=== PATIENT | male | born 1955 | race Caucasian/White ===

== ENCOUNTER 2019-10-20 06:53 | Emergency (ER) | payer MEDICARE, MEDICAID, SELFPAY ==
[2019-10-20 07:07] VITALS: BP 200/108; PULSE 84; RESP 15; O2SAT 97; BMI 30.3
--- NOTE | 2019-10-20 07:16 | ED.NAVMDI ---
HPI - Nausea/Vomiting/Diarrhea General Chief complaint: Nausea/Vomiting/Diarrhea Stated complaint: dehydration Time Seen by Provider: 10/20/19 07:15 Source: patient Mode of arrival: Ambulatory Limitations: no limitations History of Present Illness HPI Narrative: CC: Nausea vomiting and diarrhea HPI: The patient is a 63-year-old male who in January had a coronary artery bypass graft x3 states that he suddenly developed nausea vomiting and diarrhea at 3:00 a.m. in the morning. He states that he was otherwise healthy and in no acute distress until then. He just suddenly started vomiting and is unable to keep anything down. He has vomited multiple times without hematemesis coffee-ground emesis. His emesis has intermittently been biliary in nature. He admits to smoking marijuana but does not drink alcohol or smoke cigarettes. He denies the use of any other drugs. He states that he has been having epigastric pain and discomfort since she started vomiting. He is status post cholecystectomy but has not had his appendix removed. He denies any fever chills sweats headache change in vision shortness of breath cough chest pain palpitations racing of his heart dizziness lightheadedness. He has had no urinary symptoms. His diarrhea has been watery in nature denies melena hematochezia. He denies a history of irritable bowel syndrome, Crohn's disease, ulcerative colitis. Related Data Previous Rx's Medication Instructions Recorded ondansetron HCl [Zofran] 8 mg PO Q8H PRN #10 tab 10/20/19 Allergies Allergy/AdvReac Type Severity Reaction Status Date / Time No Known Drug Allergies Allergy Verified 10/20/19 07:10 Review of Systems Review of Systems Narrative: Review of systems were negative except for those mentioned in history of present illness Patient History Social History Smoking Status: Never smoker Smoking Status: Never smoker alcohol intake frequency: 0-2 drinks per day Substance Use Type: does not use Exam Narrative Exam Narrative: PHYSICAL EXAM: CONSTITUTIONAL: Awake, appears uncomfortable and is retching continuously. His emesis appears biliary in nature. He is a thin and appears to be chronically ill. HEAD: AT/NC EENT: PERRL, pupils appear pinpoint with full range of motion of the eyes no appreciable nystagmus no conjunctivitis or discharge No epistaxis or nasal drainage Oral mucosa is moist and pink, posterior pharynx is without erythema or exudate. NECK: Supple, no obvious JVD, Trachea is midline without stridor, no palpable LN or masses. SPINE: No gross deformity, no palpable tenderness of the cervical, thoracic, lumbar or sacral spine. No CVA tenderness. THORAX: No deformity, retractions, chest wall tenderness, subcutaneous air or crepitice. LUNGS: Breath sounds are clear and symmetrical. HEART: Heart tones are regular rhythm and rate without appreciable murmur. Is not tachycardic. He has a fresh midline sternal scar and a wire scar ABDOMEN: Abdomen is flat scaphoid nontender no palpable organomegaly. There is no guarding rebound or rigidity EXTREMITIES: No edema, cyanosis, deformity or tenderness. SKIN: No rash, bruising, petechiae or purpura. NEURO: Awake, alert, oriented, conversive, cranial nerves II-XII are symmetrical and normal, moves all 4 extremities . Initial Vital Signs Initial Vital Signs: Vital Signs Pulse Rate 84 10/20/19 07:07 Respiratory Rate 15 10/20/19 07:07 Blood Pressure 200/108 H 10/20/19 07:07 Pulse Oximetry 97 10/20/19 07:07 Course Course Course Narrative: 1140 vomiting has stopped and the patient was able to keep liquids down. Patient will be discharged home Orders Ordered: Discontinued Medications Diphenhydramine HCl (Benadryl) 50 mg IV NOW ONE Stop: 10/20/19 07:50 Last Admin: 10/20/19 07:52 Dose: 50 mg Documented by: SARAH Sodium Chloride (Normal Saline 0.9%) 1,000 mls @ 1,000 mls/hr IV BOLUS ONE Stop: 10/20/19 08:19 Last Infusion: 10/20/19 08:25 Dose: 0 mls/hr Documented by: Admin: 10/20/19 07:25 Dose: 1,000 mls/hr Documented by: SARAH Metoclopramide HCl (Reglan) 10 mg IV NOW ONE Stop: 10/20/19 08:26 Last Admin: 10/20/19 08:27 Dose: 10 mg Documented by: SARAH Ondansetron HCl (Zofran) 8 mg IV NOW ONE Stop: 10/20/19 07:21 Last Admin: 10/20/19 07:25 Dose: 8 mg Documented by: SCANAPO Vital Signs Vital signs: Vital Signs - 8 hr 10/20/19 07:07 10/20/19 07:29 10/20/19 09:09 Temperature 97.2 F L Pulse Rate 84 77 Respiratory Rate 15 20 Blood Pressure 200/108 H Blood Pressure [Left Arm] 200/108 H Pulse Oximetry 97 100 10/20/19 11:00 Temperature Pulse Rate 63 Respiratory Rate 18 Blood Pressure Blood Pressure [Left Arm] 179/83 H Pulse Oximetry 100 MDM - Nausea/Vomiting/Diarrhea Lab Data Result diagrams: 10/20/19 07:15 10/20/19 07:15 Labs: Lab Results 10/20/19 10/20/19 10/20/19 Range/Units 07:15 07:15 07:15 WBC 9.7 (4.5-11.0) X10^3/uL RBC 6.30 H (4.5-5.9) X10^6/uL Hgb 17.3 (13.5-17.5) g/dL Hct 51.0 (41-53) % MCV 81.0 (80-100) fL MCH 27.4 (26-34) PG MCHC 33.9 (30-36) % RDW 13.4 (11.6-14.8) % Plt Count 168 (150-400) X10^3/uL Neut % (Auto) 76.7 H (50-75) % Lymph % (Auto) 13.5 L (25-40) % [place] % (Auto) 7.6 (3-14) % Eos % (Auto) 0.5 L (2-4) % Baso % (Auto) 1.7 (0-2) % Neut # (Auto) 7400 H (7692-5803) /uL Lymph # (Auto) 1300 (7079-3768) /uL [place] # (Auto) 700 (0-900) /uL Eos # (Auto) 0 (0-450) /uL Baso # (Auto) 200 H (0-100) /uL Sodium 141 (137-145) mmol/L Potassium 3.7 (3.4-5.1) mmol/L Chloride 100 (98-107) mmol/L Carbon Dioxide 26 (22-32) mmol/L BUN 13 (9-20) mg/dL Creatinine 0.70 (0.66-1.25) mg/dL Estimated GFR > 60.0 (>60) mL/min BUN/Creatinine Ratio 18.6 (6-22) Glucose 249 H (80-110) mg/dL Calcium 10.8 H (8.4-10.2) mg/dL Total Bilirubin 0.7 (0.2-1.3) mg/dL AST 29 (17-59) IU/L ALT 21 (<50) IU/L Alkaline Phosphatase 80 (38-126) U/L Troponin I < 0.012 (0.01-0.034) ng/mL Total Protein 8.9 H (6.3-8.2) g/dL Albumin 5.0 (3.5-5.0) g/dL Globulin 3.9 (1.7-4.1) g/dL Albumin/Globulin Ratio 1.3 (1.0-2.8) Lipase 51 (23-300) U/L U Opiates 300ng/mL cut (Negative) Ur Oxycodone Screen (Negative) Urine Methadone Screen (Negative) Ur Barbiturates Screen (Negative) U Tricyclic Antidepress (Negative) Ur Phencyclidine Scrn (Negative) Ur Amphetamines Screen (Negative) U Methamphetamines Scrn (Negative) Ur MDMA Scrn (Ecstasy) (Negative) U Benzodiazepines Scrn (Negative) Urine Cocaine Screen (Negative) U Marijuana (THC) Screen (Negative) Ethyl Alcohol ( - 10) mg/dL 10/20/19 10/20/19 Range/Units 07:15 09:10 WBC (4.5-11.0) X10^3/uL RBC (4.5-5.9) X10^6/uL Hgb (13.5-17.5) g/dL Hct (41-53) % MCV (80-100) fL MCH (26-34) PG MCHC (30-36) % RDW (11.6-14.8) % Plt Count (150-400) X10^3/uL Neut % (Auto) (50-75) % Lymph % (Auto) (25-40) % [place] % (Auto) (3-14) % Eos % (Auto) (2-4) % Baso % (Auto) (0-2) % Neut # (Auto) (5063-6291) /uL Lymph # (Auto) (5869-0591) /uL [place] # (Auto) (0-900) /uL Eos # (Auto) (0-450) /uL Baso # (Auto) (0-100) /uL Sodium (137-145) mmol/L Potassium (3.4-5.1) mmol/L Chloride (98-107) mmol/L Carbon Dioxide (22-32) mmol/L BUN (9-20) mg/dL Creatinine (0.66-1.25) mg/dL Estimated GFR (>60) mL/min BUN/Creatinine Ratio (6-22) Glucose (80-110) mg/dL Calcium (8.4-10.2) mg/dL Total Bilirubin (0.2-1.3) mg/dL AST (17-59) IU/L ALT (<50) IU/L Alkaline Phosphatase (38-126) U/L Troponin I (0.01-0.034) ng/mL Total Protein (6.3-8.2) g/dL Albumin (3.5-5.0) g/dL Globulin (1.7-4.1) g/dL Albumin/Globulin Ratio (1.0-2.8) Lipase (23-300) U/L U Opiates 300ng/mL cut Negative (Negative) Ur Oxycodone Screen Negative (Negative) Urine Methadone Screen Negative (Negative) Ur Barbiturates Screen Negative (Negative) U Tricyclic Antidepress Negative (Negative) Ur Phencyclidine Scrn Negative (Negative) Ur Amphetamines Screen Negative (Negative) U Methamphetamines Scrn Negative (Negative) Ur MDMA Scrn (Ecstasy) Negative (Negative) U Benzodiazepines Scrn Negative (Negative) Urine Cocaine Screen Negative (Negative) U Marijuana (THC) Screen Positive H (Negative) Ethyl Alcohol < 10 ( - 10) mg/dL Point of Care Testing Glucose POC 209 Urine Dip Bedside Urine Glucose 1000 mg/dl Bedside Urine Bilirubin - Negative Bedside Urine Ketone +++ 80 Urine Specific [place] 1.020 Bedside Urine Occult Blood - Negative Bedside Urine pH 6.0 Bedside Urine Protein +/- 15 Bedside Urine Urobilinogen - Negative Bedside Urine Nitrite - Negative Bedside Urine Leukocytes - Negative Esterase Discharge Plan Departure Patient Disposition: Home Clinical Impression: Retching, Dehydration, Nausea, vomiting and diarrhea, Cyclical vomiting Discharge Date/Time: 10/20/19 12:16 Instructions: DI for Dehydration -- Adult, DI for Vomiting -- Adult, Nausea and Vomiting-Adult Activity Restrictions/Additional Instructions: 1. Avoid smoking marijuana which can cause persistent vomiting. 2. Follow-up follow-up with your primary care physician in and be rechecked in 48-72 hours. 3. Drink 2-3 L of fluid per day advanced her diet slowly as tolerated. 4. Zofran for nausea and vomiting. Prescriptions: New ondansetron HCl [Zofran] 8 mg tablet 8 mg PO Q8H PRN (Reason: nausea and vomiting) Qty: 10 RF: 0
[2019-10-20] MEDS: SODIUM CHLORIDE 0.9% 1,000 ML 1000 ML IV (07:25)
[2019-10-20] MEDS: ONDANSETRON 4 MG/2 ML INJ 8 MG IV (07:25)
[2019-10-20 07:29] VITALS: TEMP 36.2
[2019-10-20 07:36] LABS: Add Manual Diff / Slide Review NO; Basophils Absolute Auto 200 /uL (0-100); Basophils Percent Auto 1.7 % (0-2); Eosinophils Absolute Auto 0 /uL (0-450); Eosinophils Percent Auto 0.5 % (2-4); Hemoglobin 17.3 g/dL (13.5-17.5); Lymphocytes Absolute Auto 1300 /uL (1100-4500); Lymphocytes Percent Auto 13.5 % (25-40); Mean Corpuscular HGB Conc 33.9 % (30-36); Mean Corpuscular Hemoglobin 27.4 PG (26-34); Monocytes Absolute Auto 700 /uL (0-900); Monocytes Percent Auto 7.6 % (3-14); Neutrophils Absolute Auto 7400 /uL (1500-7000); Neutrophils Percent Auto 76.7 % (50-75); Platelet Count 168 X10^3/uL (150-400); Red Cell Distribution Width 13.4 % (11.6-14.8); White Blood Cell Count 9.7 X10^3/uL (4.5-11.0)
[2019-10-20 07:42] LABS: Lipase 51 U/L (23-300)
[2019-10-20 07:43] LABS: Alanine Aminotransferase 21 IU/L (<50); Albumin Globulin Ratio 1.3 (1.0-2.8); Alkaline Phosphatase 80 U/L (38-126); Aspartate Aminotransferase 29 IU/L (17-59); BUN Creatinine Ratio 18.6 (6-22); Bilirubin Total 0.7 mg/dL (0.2-1.3); Blood Urea Nitrogen 13 mg/dL (9-20); Calcium 10.8 mg/dL (8.4-10.2); Carbon Dioxide 26 mmol/L (22-32); Chloride 100 mmol/L (98-107); Estimated Glomerular Filt Rate > 60.0 mL/min (>60); Globulin 3.9 g/dL (1.7-4.1); Glucose 249 mg/dL (80-110); HEMOLYSIS < 15 (0-50); Potassium 3.7 mmol/L (3.4-5.1); Sodium 141 mmol/L (137-145); Total Protein 8.9 g/dL (6.3-8.2)
[2019-10-20] MEDS: diphenhydrAMINE 50 MG/ML VIAL IV (07:52)
[2019-10-20 07:54] LABS: Troponin I < 0.012 ng/mL (0.01-0.034)
[2019-10-20 07:57] LABS: Ethanol (ETOH) < 10 mg/dL
[2019-10-20] MEDS: METOCLOPRAMIDE 10 MG/2 ML INJ IV (08:27)
--- NOTE | 2019-10-20 08:37 | DI.RAD.S_ITS ---
PROCEDURE: XR ACUTE ABDOMEN SERIES INDICATIONS: persistent retching/ vomiting TECHNIQUE: One view chest and two views of the abdomen were acquired. COMPARISON: None. FINDINGS: Surgical changes and devices: Post CABG changes are seen. Cholecystectomy clips are seen. Lumbosacral postoperative fixation hardware is seen. Chest: Lungs are clear. Heart size is normal. No pleural effusions. No pneumoperitoneum. Abdomen: No dilated loops of bowel can be seen. No abnormal gas is seen. There is a moderate amount of stool seen within the colon. No suspicious calcifications. Visualized solid organ contours appear normal. Bones: No suspicious bony lesions. Age-appropriate bony degenerative changes are seen. IMPRESSION: A nonobstructive bowel gas pattern is seen. As clinically appropriate, please consider a repeat plain film study or a dedicated CT of the abdomen and pelvis, if the patient's symptoms persist or worsen. There is a moderate amount of stool seen within the colon. Please correlate with an underlying history of constipation. Postoperative and degenerative changes are seen. Dictated by: Abelino Rhodes M.D. on 10/20/2019 at 8:58 Approved by: Abelino Rhodes M.D. on 10/20/2019 at 8:59
[2019-10-20 09:09] VITALS: BP 200/108; PULSE 77; RESP 20; O2SAT 100
[2019-10-20 09:30] LABS: UR Morphine/Opiate cutoff 300 Negative (Negative); Ur Creatinine Normal (Normal); Ur Specific Gravity Normal (Normal); Urine Amphetamines Negative (Negative); Urine Barbiturates Negative (Negative); Urine Benzodiazepines Negative (Negative); Urine Cocaine Negative (Negative); Urine MDMA Negative (Negative); Urine Methadone Negative (Negative); Urine Methamphetamines Negative (Negative); Urine Phencyclidine Negative (Negative); Urine Tetrahydrocannabinol Positive (Negative); Urine Tricyclic Antidepressant Negative (Negative); Urine pH Normal (Normal)
[2019-10-20 09:31] LABS: Urine Oxycodone Negative (Negative)
[2019-10-20 11:00] VITALS: BP 179/83; PULSE 63; RESP 18; O2SAT 100
[2019-10-20 12:06] VITALS: BP 168/81; PULSE 61; RESP 19; O2SAT 100
== END 2019-10-20 12:16 | disposition home or self-care (01) ==
PROVIDERS: Emergency Provider Emergency Medicine
DX: R11.15 Cyclical vomiting syndrome unrelated to migraine (principal); R11.2 Nausea with vomiting, unspecified; R19.7 Diarrhea, unspecified; E86.0 Dehydration
CPT/HCPCS: 36415; 74022; 80053; 80305; 80320; 81003; 82962; 83690; 84484; 85025; 87045; 87899; 96361; 96374; 96375; 99284; J1200; J2405; J2765

== ENCOUNTER 2020-04-12 08:29 | Emergency (ER) | payer MEDICARE, MEDICAID, SELFPAY ==
[2020-04-12] VITALS (22 sets, daily range): BP systolic 170–215; BP diastolic 73–116; PULSE 53–80; RESP 13–26; TEMP 36.6; O2SAT 98–100; BMI 30.3
[2020-04-12 09:00] LABS: Add Manual Diff / Slide Review NO; Basophils Absolute Auto 0 /uL (0-100); Basophils Percent Auto 0.4 % (0-2); Eosinophils Absolute Auto 100 /uL (0-450); Eosinophils Percent Auto 0.6 % (2-4); Hematocrit 50.8 % (41-53); Hemoglobin 16.9 g/dL (13.5-17.5); Lymphocytes Absolute Auto 2300 /uL (1100-4500); Lymphocytes Percent Auto 24.4 % (25-40); Mean Corpuscular HGB Conc 33.4 % (30-36); Mean Corpuscular Hemoglobin 27.2 PG (26-34); Mean Corpuscular Volume 81.6 fL (80-100); Monocytes Absolute Auto 900 /uL (0-900); Monocytes Percent Auto 9.2 % (3-14); Neutrophils Absolute Auto 6000 /uL (1500-7000); Neutrophils Percent Auto 65.4 % (50-75); Platelet Count 167 X10^3/uL (150-400); Red Blood Cell Count 6.22 X10^6/uL (4.5-5.9); Red Cell Distribution Width 13.8 % (11.6-14.8); White Blood Cell Count 9.3 X10^3/uL (4.5-11.0)
--- NOTE | 2020-04-12 09:03 | ED_ITS ---
HPI - Nausea/Vomiting/Diarrhea General Chief complaint: Nausea/Vomiting/Diarrhea Stated complaint: 'PROBABLY HYPEREMISIS' Time Seen by Provider: 04/12/20 08:53 Source: patient History of Present Illness HPI Narrative: Patient driven here by his roommate. Patient states nonbloody vomiting and diarrhea started 24 hours ago. Patient states this is not new. This is due to cannabinoid hyperemesis syndrome. Patient states lifelong use of marijuana. This has caused him to have cyclic vomiting. Seen here in October 2019 for the same. Was given Reglan, Zofran, Benadryl and normal saline. He states that is what helps him to recover from this. Denies denies any chest pain back pain or abdominal pain. No recent illness otherwise. No cough cold congestion fever chills. No go over the exposure. Again, denies any chest pain. No EKG or troponin indicated this time. Patient did have those studies last time and they were negative. Related Data Home Medications Medication Instructions Recorded Confirmed aspirin [Adult Low Dose Aspirin] 81 mg PO DAILY 04/12/20 04/12/20 Previous Rx's Medication Instructions Recorded ondansetron HCl [Zofran] 8 mg PO Q8H PRN #10 tab 10/20/19 ondansetron 4 mg PO Q8H PRN #10 tab 04/12/20 Allergies Allergy/AdvReac Type Severity Reaction Status Date / Time No Known Drug Allergies Allergy Verified 04/12/20 09:15 Review of Systems Review of Systems Narrative: GENERAL: Denies chills, fatigue, malaise, fever, sweats. HEENT: Denies sinus pain, ear pain, sore throat, difficulty swallowing, dizziness. RESPIRATORY: Denies dyspnea, cough, wheezing, hemoptysis, sputum. CARDIOVASCULAR: Denies chest pain, palpitations, orthopnea, edema, GASTROINTESTINAL: Complains of nausea, vomiting, diarrhea, denies constipation, melena. : Denies dysuria, frequency, incontinence, hematuria, urinary retention. MUSCULOSKELETAL: denies weakness, joint pain, or bony pain SKIN: Denies rash, skin lesions, or other NEUROLOGIC: Denies weakness, headache, numbness, change in speech, confusion, seizures, incoordination. PSYCHIATRIC: No concerning psychosocial issues. ROS Unobtainable: All systems reviewed & are unremarkable except as noted in HPI and below Patient History Social History Smoking Status: Never smoker Smoking Status: Never smoker alcohol intake frequency: 0-2 drinks per day Substance Use Type: does not use Exam Narrative Exam Narrative: GENERAL: patient appears stated age. Well-nourished, well- developed patient, in no distress, not toxic, however is active he being/dry heaving HEAD: Atraumatic. Normocephalic. EYES: No icterus ENT: Nose without bleeding, purulent drainage. Throat without erythema, tonsillar hypertrophy or exudate. Airway patent. NECK: Trachea midline. Non tender CARDIOVASCULAR: Regular rate and rhythm without murmurs, gallops, or rubs. RESPIRATORY: Clear to auscultation. Breath sounds equal bilaterally. No wheezes, rales, or rhonchi. GASTROINTESTINAL: Abdomen soft, non-tender, nondistended. No peritoneal signs, normal bowel sounds EXTREMITIES: No edema or joint tenderness. BACK: Nontender without deformity or crepitance. No flank tenderness. NEURO: AOx3. SKIN: No rash or erythema of visible areas PSYCH: Not anxious, is cooperative Initial Vital Signs Initial Vital Signs: Vital Signs Pulse Rate 55 L 04/12/20 08:34 Pulse Oximetry 99 04/12/20 08:34 Course Course Course Narrative: Patient to be admitted home. Hospitalist Dr. Solorio has seen patient and reassessed and patient desires discharge home no vomiting after multiple medications. Orders Ordered: ED Orders 04/12/20 11:58 EKG-12 Lead Stat Discontinued Medications Diphenhydramine HCl (Benadryl) 25 mg IV NOW ONE Stop: 04/12/20 09:03 Last Admin: 04/12/20 09:09 Dose: 25 mg Documented by: [place] Haloperidol (Haldol) 5 mg IM NOW ONE Stop: 04/12/20 11:49 Last Admin: 04/12/20 11:56 Dose: 5 mg Documented by: JACE Sodium Chloride (Normal Saline 0.9%) 1,000 mls @ 1,000 mls/hr IV BOLUS ONE Stop: 04/12/20 09:53 Last Infusion: 04/12/20 09:59 Dose: 0 mls/hr Documented by: Admin: 04/12/20 09:08 Dose: 1,000 mls/hr Documented by: [place] Sodium Chloride (Normal Saline 0.9%) 1,000 mls @ 1,000 mls/hr IV BOLUS ONE Stop: 04/12/20 11:07 Last Infusion: 04/12/20 11:12 Dose: 0 mls/hr Documented by: Admin: 04/12/20 10:18 Dose: 1,000 mls/hr Documented by: [place] Sodium Chloride (Normal Saline 0.9%) 1,000 mls @ 75 mls/hr IV BOLUS ONE Stop: 04/13/20 01:08 Last Admin: 04/12/20 11:55 Dose: 75 mls/hr Documented by: JACE Lorazepam (Ativan) 1 mg IV NOW ONE Stop: 04/12/20 10:43 Last Admin: 04/12/20 10:49 Dose: 1 mg Documented by: [place] Metoclopramide HCl (Reglan) 10 mg IV NOW ONE Stop: 04/12/20 09:03 Last Admin: 04/12/20 09:09 Dose: 10 mg Documented by: [place] Ondansetron HCl (Zofran) 4 mg IV NOW ONE Stop: 04/12/20 08:55 Last Admin: 04/12/20 09:09 Dose: Not Given Documented by: [place] Pantoprazole Sodium (Protonix) 40 mg IV NOW ONE Stop: 04/12/20 12:05 Last Admin: 04/12/20 12:10 Dose: 40 mg Documented by: JACE Reevaluation(s) Reevaluation #1: No nausea vomiting at this time. Patient desires discharge home Time: 14:20 Consultations Consultation #1: Patient seen by hospitalist dr solorio.. Patient does not to be admitted now. He states he is not nauseous or vomiting. Laboratory studies reviewed with him and Dr. Solorio Time: 14:20 Vital Signs Vital signs: Vital Signs - 8 hr 04/12/20 10:30 04/12/20 10:31 04/12/20 11:00 Pulse Rate 63 60 53 L Respiratory Rate Blood Pressure 203/89 H Pulse Oximetry 100 100 99 04/12/20 11:01 04/12/20 11:30 04/12/20 11:31 Pulse Rate 55 L 64 59 L Respiratory Rate 19 18 Blood Pressure 215/92 H 174/73 H Pulse Oximetry 98 100 100 04/12/20 12:00 04/12/20 12:01 04/12/20 12:30 Pulse Rate 80 72 66 Respiratory Rate 26 H 26 H 13 Blood Pressure 172/116 H 183/86 H Pulse Oximetry 100 100 100 04/12/20 13:00 04/12/20 13:01 04/12/20 13:30 Pulse Rate 64 62 61 Respiratory Rate 21 21 20 Blood Pressure 178/82 H 181/86 H Pulse Oximetry 98 98 99 04/12/20 14:00 Pulse Rate 67 Respiratory Rate 20 Blood Pressure 170/97 H Pulse Oximetry 100 MDM - Nausea/Vomiting/Diarrhea Differential Diagnosis Differential diagnosis: Likely other (Intractable vomiting) Lab Data Result diagrams: 04/12/20 08:45 04/12/20 08:45 Labs: Lab Results 04/12/20 04/12/20 04/12/20 Range/Units 08:45 08:45 12:02 WBC 9.3 (4.5-11.0) X10^3/uL RBC 6.22 H (4.5-5.9) X10^6/uL Hgb 16.9 (13.5-17.5) g/dL Hct 50.8 (41-53) % MCV 81.6 (80-100) fL MCH 27.2 (26-34) PG MCHC 33.4 (30-36) % RDW 13.8 (11.6-14.8) % Plt Count 167 (150-400) X10^3/uL Neut % (Auto) 65.4 (50-75) % Lymph % (Auto) 24.4 L (25-40) % [place] % (Auto) 9.2 (3-14) % Eos % (Auto) 0.6 L (2-4) % Baso % (Auto) 0.4 (0-2) % Neut # (Auto) 6000 (9359-8542) /uL Lymph # (Auto) 2300 (4974-1409) /uL [place] # (Auto) 900 (0-900) /uL Eos # (Auto) 100 (0-450) /uL Baso # (Auto) 0 (0-100) /uL Sodium 136 L (137-145) mmol/L Potassium 4.0 (3.4-5.1) mmol/L Chloride 101 (98-107) mmol/L Carbon Dioxide 26 (22-32) mmol/L BUN 12 (9-20) mg/dL Creatinine 0.68 (0.66-1.25) mg/dL Estimated GFR > 60.0 (>60) mL/min BUN/Creatinine Ratio 17.6 (6-22) Glucose 224 H (80-110) mg/dL Calcium 10.3 H (8.4-10.2) mg/dL Total Bilirubin 0.8 (0.2-1.3) mg/dL AST 33 (17-59) IU/L ALT 23 (<50) IU/L Alkaline Phosphatase 79 (38-126) U/L Total Protein 8.2 (6.3-8.2) g/dL Albumin 4.7 (3.5-5.0) g/dL Globulin 3.5 (1.7-4.1) g/dL Albumin/Globulin Ratio 1.3 (1.0-2.8) Lipase 51 (23-300) U/L COVID-19 PCR Negative (Negative) Urine Dip Bedside Urine Glucose 1000 mg/dl Bedside Urine Bilirubin - Negative Bedside Urine Ketone ++ 40 Urine Specific [place] 1.015 Bedside Urine Occult Blood - Negative Bedside Urine pH 6.0 Bedside Urine Protein - Negative Bedside Urine Urobilinogen - Negative Bedside Urine Nitrite - Negative Bedside Urine Leukocytes - Negative Esterase ECG Data Attestation: I personally reviewed and interpreted this ECG as follows: Interpretation: Sinus rhythm no ST elevation or depression. Ventricular rate 68 MDM Narrative Medical decision making narrative: Patient does not want to be admitted now. No nausea vomiting after Zofran Reglan Benadryl Ativan and Haldol. Awake alert oriented x4. Discharge Plan Departure Patient Disposition: Home Clinical Impression: Acute vomiting Discharge Date/Time: 04/12/20 14:32 Instructions: DI for Vomiting -- Adult Activity Restrictions/Additional Instructions: Stop using marijuana. Return if worse or if any questions or concerns. Keep well hydrated. See family doctor in a week for recheck. Prescriptions: New ondansetron 4 mg tablet,disintegrating 4 mg PO Q8H PRN (Reason: nausea and vomiting) Qty: 10 RF: 0 No Action ondansetron HCl [Zofran] 8 mg tablet 8 mg PO Q8H PRN (Reason: nausea and vomiting) Qty: 10 RF: 0 aspirin [Adult Low Dose Aspirin] 81 mg Tablet,Delayed Release (Dr/Ec) 81 mg PO DAILY RF: 0
[2020-04-12 09:05] LABS: Alanine Aminotransferase 23 IU/L (<50); Albumin 4.7 g/dL (3.5-5.0); Albumin Globulin Ratio 1.3 (1.0-2.8); Alkaline Phosphatase 79 U/L (38-126); Aspartate Aminotransferase 33 IU/L (17-59); BUN Creatinine Ratio 17.6 (6-22); Bilirubin Total 0.8 mg/dL (0.2-1.3); Blood Urea Nitrogen 12 mg/dL (9-20); Calcium 10.3 mg/dL (8.4-10.2); Carbon Dioxide 26 mmol/L (22-32); Chloride 101 mmol/L (98-107); Estimated Glomerular Filt Rate > 60.0 mL/min (>60); Globulin 3.5 g/dL (1.7-4.1); Glucose 224 mg/dL (80-110); Lipase 51 U/L (23-300); Sodium 136 mmol/L (137-145); Total Protein 8.2 g/dL (6.3-8.2)
[2020-04-12 09:06] LABS: HEMOLYSIS 52 (0-50)
[2020-04-12] MEDS: SODIUM CHLORIDE 0.9% 1,000 ML 1000 ML IV ×2 (09:08→10:18)
[2020-04-12] MEDS: METOCLOPRAMIDE 10 MG/2 ML INJ IV (09:09)
[2020-04-12] MEDS: ONDANSETRON 4 MG/2 ML INJ (09:09)
[2020-04-12] MEDS: diphenhydrAMINE 50 MG/ML VIAL 25 MG IV (09:09)
[2020-04-12] MEDS: LORazepam 2 MG/ML INJ 1 MG IV (10:49)
[2020-04-12] MEDS: SODIUM CHLORIDE 0.9% 1,000 ML 75 ML IV (11:55)
[2020-04-12] MEDS: HALOPERIDOL 5 MG/ML VIAL IM (11:56)
[2020-04-12] MEDS: PANTOPRAZOLE 40 MG VIAL IV (12:10)
[2020-04-12 13:00] LABS: COVID19 -Nasal RAPID Negative (Negative)
== END 2020-04-12 14:32 | disposition home or self-care (01) ==
PROVIDERS: Emergency Provider Emergency Medicine
DX: R11.10 Vomiting, unspecified (principal); R19.7 Diarrhea, unspecified
CPT/HCPCS: 36415; 80053; 81003; 83690; 85025; 87635; 93005; 96361; 96372; 96374; 96375; 99284; C9113; J1200; J1630; J2060; J2405; J2765

== ENCOUNTER 2020-09-11 05:57 | Emergency (ER) | payer MEDICARE, MEDICAID, SELFPAY ==
[2020-09-11] VITALS (11 sets, daily range): BP systolic 184–206; BP diastolic 88–106; PULSE 52–63; RESP 17–21; TEMP 36.6; O2SAT 94–100; BMI 30.6
--- NOTE | 2020-09-11 06:11 | ED.NAVMDI ---
HPI - Nausea/Vomiting/Diarrhea <DO Hanna Jesus Last Filed: 09/12/20 00:26> General Chief complaint: Nausea/Vomiting/Diarrhea Stated complaint: Vomiting,nausea Time Seen by Provider: 09/11/20 06:03 Source: patient Mode of arrival: Ambulatory Limitations: no limitations History of Present Illness HPI Narrative: 64-year-old male with history of heavy marijuana use and frequent episodes of hyperemesis presents with nausea vomiting and weakness that started about 2 this morning. He states it feels quite similar to prior episodes. He denies any runny nose or sore throat. He has no chest pain or shortness of breath. He has no fever or shaking chills. He denies any change in medications or diet. He denies any exposure to persons with known COVID. MD complaint: nausea and vomiting Onset (ago): hour(s) Description of Vomiting: food contents Description of Diarrhea: none Associated Abdominal Pain: Yes Location of pain: diffuse Radiation: diffuse Severity: mild Quality: cramping Relieving factors: none Exacerbating factors: none Associated symptoms: denies other symptoms Related Data Home Medications Medication Instructions Recorded Confirmed aspirin [Adult Low Dose Aspirin] 81 mg PO DAILY 04/12/20 04/12/20 Previous Rx's Medication Instructions Recorded ondansetron HCl [Zofran] 8 mg PO Q8H PRN #10 tab 10/20/19 ondansetron 4 mg PO Q8H PRN #10 tab 04/12/20 Allergies Allergy/AdvReac Type Severity Reaction Status Date / Time No Known Drug Allergies Allergy Verified 04/12/20 09:15 Review of Systems <DO Hanna Jesus Last Filed: 09/12/20 00:26> Constitutional Constitutional: Denies chills, Denies fatigue, Denies fever(s), Denies frequent falls, Denies lethargy and Denies weakness Eyes Eyes: Denies change in vision, Denies eye discharge, Denies irritation and Denies loss of vision ENT Ears, Nose, Mouth, and Throat: Denies change in voice, Denies dizziness, Denies neck pain, Denies sore throat and Denies throat swelling Cardiovascular Cardiovascular: Denies chest pain, Denies irregular heart rhythm, Denies lightheadedness, Denies palpitations, Denies dyspnea, Denies dyspnea on exertion and Denies orthopnea Respiratory Respiratory: Denies cough, Denies dyspnea, Denies dyspnea on exertion and Denies wheezing Gastrointestinal Gastrointestinal: Reports abdominal pain (Mild crampy discomfort), Denies change in bowel habits, Denies diarrhea, Reports nausea and Reports vomiting Musculoskeletal Musculoskeletal: Denies neck pain and Denies numbness Integumentary/Breasts Skin/Breast: Denies pruritus, Denies erythema, Denies rash and Denies wounds Neurologic Neurologic: Denies behavioral changes, Denies confusion, Denies dizziness, Denies frequent falls, Denies loss of vision, Denies numbness and Denies weakness Psychiatric Psychiatric: Denies anxiety, Denies behavioral changes, Denies confusion, Denies depression, Denies homicidal ideation and Denies suicidal ideation Endocrine Endocrine: Denies fatigue, Denies flushing and Denies palpitations Hematologic/Lymphatic Hematologic/Lymphatic: Denies easy bruising Allergic/Immunologic Allergic/Immunologic: Denies urticaria, Denies throat swelling and Denies wheezing Patient History <Fadi Landaverde DO - Last Filed: 09/12/20 00:26> Social History Smoking Status: Never smoker Smoking Status: Never smoker alcohol intake frequency: 0-2 drinks per day Substance Use Type: marijuana Exam <Fadi Landaverde DO - Last Filed: 09/12/20 00:26> Narrative Exam Narrative: GENERAL: [64] year old patient appears stated age. Well-nourished, well-developed patient, in mild distress. Appears uncomfortable HEAD: Atraumatic. Normocephalic. EYES: Pupils equal round and reactive. Extraocular motions intact. No scleral icterus. No injection or drainage. ENT: Dry mucous membranes Nose without bleeding, purulent drainage. Throat without erythema, tonsillar hypertrophy or exudate. Airway patent. NECK: Trachea midline. Non tender CARDIOVASCULAR: Regular rate and rhythm without murmurs, gallops, or rubs. RESPIRATORY: Clear to auscultation. Breath sounds equal bilaterally. No wheezes, rales, or rhonchi. GASTROINTESTINAL: Abdomen soft, non-tender, nondistended. EXTREMITIES: No edema or joint tenderness. BACK: Nontender without deformity or crepitance. No flank tenderness. NEURO: AOx3. SKIN: No rash or erythema of visible areas Initial Vital Signs Initial Vital Signs: Vital Signs Temperature 98 F 01/09/21 06:05 Pulse Rate 61 09/11/20 06:05 Respiratory Rate 17 09/11/20 06:05 Blood Pressure 200/92 H 09/11/20 06:05 Pulse Oximetry 100 09/11/20 06:05 <Julieta Ledezma DO - Last Filed: 09/11/20 09:59> Initial Vital Signs Initial Vital Signs: Vital Signs Temperature 98 F 09/11/20 06:05 Pulse Rate 61 09/11/20 06:05 Respiratory Rate 17 09/11/20 06:05 Blood Pressure 200/92 H 09/11/20 06:05 Pulse Oximetry 100 09/11/20 06:05 Course <Fadi Landaverde, DO - Last Filed: 09/12/20 00:26> Course Course Narrative: patient signed out to Dr. Ledezma for completion of care and final disposition. Expect DC Orders Ordered: Discontinued Medications Diphenhydramine HCl (Diphenhydramine 50 Mg/Ml Vial) 25 mg IV NOW ONE Stop: 09/11/20 07:52 Last Admin: 09/11/20 08:00 Dose: 25 mg Documented by: YONATHAN Haloperidol (Haloperidol 5 Mg/Ml Vial) 5 mg IV NOW ONE Stop: 09/11/20 07:52 Last Admin: 09/11/20 07:59 Dose: 5 mg Documented by: JOHN PAULINOR Sodium Chloride (Normal Saline 0.9%) 1,000 mls @ 1,000 mls/hr IV BOLUS ONE Stop: 09/11/20 07:11 Last Infusion: 09/11/20 07:48 Dose: 0 mls/hr Documented by: Admin: 09/11/20 06:39 Dose: 1,000 mls/hr Documented by: KGALLCHARLIE Sodium Chloride (Normal Saline 0.9%) 1,000 mls @ 1,000 mls/hr IV BOLUS ONE Stop: 09/11/20 08:55 Last Infusion: 09/11/20 08:55 Dose: 0 mls/hr Documented by: Admin: 09/11/20 08:00 Dose: 1,000 mls/hr Documented by: YONATHAN Metoclopramide HCl (Metoclopramide 10 Mg/2 Ml Inj) 10 mg IV NOW ONE Stop: 09/11/20 06:13 Last Admin: 09/11/20 06:39 Dose: 10 mg Documented by: STACY Ondansetron HCl (Ondansetron 4 Mg/2 Ml Inj) 4 mg IV Q4HR PRN PRN Reason: Nausea And Vomiting Last Admin: 09/11/20 07:59 Dose: 4 mg Documented by: Admin: 09/11/20 06:38 Dose: 4 mg Documented by: STACY Pantoprazole Sodium (Pantoprazole 40 Mg Vial) 40 mg IV NOW ONE Stop: 09/11/20 07:53 Last Admin: 09/11/20 07:59 Dose: 40 mg Documented by: YONATHAN Vital Signs Vital signs: Vital Signs - 8 hr 09/11/20 06:05 09/11/20 06:07 09/11/20 06:08 Temperature 98 F Pulse Rate 61 63 Respiratory Rate 17 Blood Pressure 200/92 H 200/92 H Pulse Oximetry 100 100 100 09/11/20 06:30 09/11/20 07:00 09/11/20 07:30 Temperature Pulse Rate 60 53 L 52 L Respiratory Rate Blood Pressure Pulse Oximetry 100 100 100 09/11/20 07:38 09/11/20 08:00 09/11/20 08:01 Temperature Pulse Rate 59 L 63 63 Respiratory Rate Blood Pressure 206/97 H 184/106 H Pulse Oximetry 100 100 99 09/11/20 08:30 09/11/20 08:31 Temperature Pulse Rate 53 L 52 L Respiratory Rate 21 19 Blood Pressure 194/88 H Pulse Oximetry 97 94 <Julieta Ledezma DO - Last Filed: 09/11/20 09:59> Orders Ordered: Discontinued Medications Diphenhydramine HCl (Diphenhydramine 50 Mg/Ml Vial) 25 mg IV NOW ONE Stop: 09/11/20 07:52 Last Admin: 09/11/20 08:00 Dose: 25 mg Documented by: YONATHAN Haloperidol (Haloperidol 5 Mg/Ml Vial) 5 mg IV NOW ONE Stop: 09/11/20 07:52 Last Admin: 09/11/20 07:59 Dose: 5 mg Documented by: YONATHAN Sodium Chloride (Normal Saline 0.9%) 1,000 mls @ 1,000 mls/hr IV BOLUS ONE Stop: 09/11/20 07:11 Last Infusion: 09/11/20 07:48 Dose: 0 mls/hr Documented by: Admin: 09/11/20 06:39 Dose: 1,000 mls/hr Documented by: STACY Sodium Chloride (Normal Saline 0.9%) 1,000 mls @ 1,000 mls/hr IV BOLUS ONE Stop: 09/11/20 08:55 Last Infusion: 09/11/20 08:55 Dose: 0 mls/hr Documented by: Admin: 09/11/20 08:00 Dose: 1,000 mls/hr Documented by: YONATHAN Metoclopramide HCl (Metoclopramide 10 Mg/2 Ml Inj) 10 mg IV NOW ONE Stop: 09/11/20 06:13 Last Admin: 09/11/20 06:39 Dose: 10 mg Documented by: STACY Ondansetron HCl (Ondansetron 4 Mg/2 Ml Inj) 4 mg IV Q4HR PRN PRN Reason: Nausea And Vomiting Last Admin: 09/11/20 07:59 Dose: 4 mg Documented by: Admin: 09/11/20 06:38 Dose: 4 mg Documented by: STACY Pantoprazole Sodium (Pantoprazole 40 Mg Vial) 40 mg IV NOW ONE Stop: 09/11/20 07:53 Last Admin: 09/11/20 07:59 Dose: 40 mg Documented by: YONATHAN Reevaluation(s) Reevaluation #1: Patient evaluated by myself he states he was having some mild nausea and requested some additional fluids. He did start to have some dry heaves while I was in the room he states that he did respond to Haldol and Benadryl in the past. He is hypertensive today and states that he last took his blood pressure medications yesterday morning. Time: 07:56 Reevaluation #2: Patient is feeling much better at this time he would like to return home. He actually defers any antinausea medications states he has some at home. He states he is well aware that his symptoms are secondary to cannabis. Time: 09:08 Vital Signs Vital signs: Vital Signs - 8 hr 09/11/20 06:05 09/11/20 06:07 09/11/20 06:08 Temperature 98 F Pulse Rate 61 63 Respiratory Rate 17 Blood Pressure 200/92 H 200/92 H Pulse Oximetry 100 100 100 09/11/20 06:30 09/11/20 07:00 09/11/20 07:30 Temperature Pulse Rate 60 53 L 52 L Respiratory Rate Blood Pressure Pulse Oximetry 100 100 100 09/11/20 07:38 09/11/20 08:00 09/11/20 08:01 Temperature Pulse Rate 59 L 63 63 Respiratory Rate Blood Pressure 206/97 H 184/106 H Pulse Oximetry 100 100 99 09/11/20 08:30 09/11/20 08:31 Temperature Pulse Rate 53 L 52 L Respiratory Rate 21 19 Blood Pressure 194/88 H Pulse Oximetry 97 94 MDM - Nausea/Vomiting/Diarrhea <Fadi Landaverde DO - Last Filed: 09/12/20 00:26> Lab Data Result diagrams: 09/11/20 06:33 09/11/20 06:33 Labs: Lab Results 09/11/20 09/11/20 09/11/20 Range/Units 06:33 06:33 07:16 WBC 8.4 (4.5-11.0) X10^3/uL RBC 5.90 (4.5-5.9) X10^6/uL Hgb 16.2 (13.5-17.5) g/dL Hct 48.5 (41-53) % MCV 82.2 (80-100) fL MCH 27.4 (26-34) PG MCHC 33.4 (30-36) % RDW 13.7 (11.6-14.8) % Plt Count 167 (150-400) X10^3/uL Neut % (Auto) 62.2 (50-75) % Lymph % (Auto) 25.8 (25-40) % [place] % (Auto) 10.1 (3-14) % Eos % (Auto) 0.9 L (2-4) % Baso % (Auto) 1.0 (0-2) % Neut # (Auto) 5200 (1011-9760) /uL Lymph # (Auto) 2200 (0344-3742) /uL [place] # (Auto) 800 (0-900) /uL Eos # (Auto) 100 (0-450) /uL Baso # (Auto) 100 (0-100) /uL Sodium 136 L (137-145) mmol/L Potassium 4.5 (3.4-5.1) mmol/L Chloride 101 (98-107) mmol/L Carbon Dioxide 26 (22-32) mmol/L BUN 11 (9-20) mg/dL Creatinine 0.73 (0.66-1.25) mg/dL Estimated GFR > 60.0 (>60) mL/min BUN/Creatinine Ratio 15.1 (6-22) Glucose 233 H (80-110) mg/dL Calcium 10.0 (8.4-10.2) mg/dL Total Bilirubin 0.5 (0.2-1.3) mg/dL AST 26 (17-59) IU/L ALT 20 (<50) IU/L Alkaline Phosphatase 74 (38-126) U/L Total Protein 7.9 (6.3-8.2) g/dL Albumin 4.7 (3.5-5.0) g/dL Globulin 3.2 (1.7-4.1) g/dL Albumin/Globulin Ratio 1.5 (1.0-2.8) Lipase 68 (23-300) U/L <Julieta Ledezma, DO - Last Filed: 09/11/20 09:59> Lab Data Labs: Lab Results 09/11/20 09/11/20 09/11/20 Range/Units 06:33 06:33 07:16 WBC 8.4 (4.5-11.0) X10^3/uL RBC 5.90 (4.5-5.9) X10^6/uL Hgb 16.2 (13.5-17.5) g/dL Hct 48.5 (41-53) % MCV 82.2 (80-100) fL MCH 27.4 (26-34) PG MCHC 33.4 (30-36) % RDW 13.7 (11.6-14.8) % Plt Count 167 (150-400) X10^3/uL Neut % (Auto) 62.2 (50-75) % Lymph % (Auto) 25.8 (25-40) % [place] % (Auto) 10.1 (3-14) % Eos % (Auto) 0.9 L (2-4) % Baso % (Auto) 1.0 (0-2) % Neut # (Auto) 5200 (6375-4240) /uL Lymph # (Auto) 2200 (5460-4672) /uL [place] # (Auto) 800 (0-900) /uL Eos # (Auto) 100 (0-450) /uL Baso # (Auto) 100 (0-100) /uL Sodium 136 L (137-145) mmol/L Potassium 4.5 (3.4-5.1) mmol/L Chloride 101 (98-107) mmol/L Carbon Dioxide 26 (22-32) mmol/L BUN 11 (9-20) mg/dL Creatinine 0.73 (0.66-1.25) mg/dL Estimated GFR > 60.0 (>60) mL/min BUN/Creatinine Ratio 15.1 (6-22) Glucose 233 H (80-110) mg/dL Calcium 10.0 (8.4-10.2) mg/dL Total Bilirubin 0.5 (0.2-1.3) mg/dL AST 26 (17-59) IU/L ALT 20 (<50) IU/L Alkaline Phosphatase 74 (38-126) U/L Total Protein 7.9 (6.3-8.2) g/dL Albumin 4.7 (3.5-5.0) g/dL Globulin 3.2 (1.7-4.1) g/dL Albumin/Globulin Ratio 1.5 (1.0-2.8) Lipase 68 (23-300) U/L MDM Narrative Medical decision making narrative: 64-year-old female who arrives with history of marijuana use and frequent episodes of hyperemesis and has been seen in department for same. He states feels similar to his prior episodes. Patient labs do not show major abnormalities. He was feeling improved after initial bag of fluids and medications but then started to have some recurrent nausea and dry heaves. Patient given a 2nd L of fluids as well as Benadryl and Haldol which patient states he has had in the past and had a good response with these medications. Discharge Plan Departure Patient Disposition: Home Clinical Impression: Hyperemesis Instructions: DI for Cannabinoid Hyperemesis Syndrome Activity Restrictions/Additional Instructions: Follow-up with your physician in the next 2-3 days if your symptoms have not resolved. I recommend that cessation of marijuana as this is the likely cause of your hyperemesis, it can take several weeks for the marijuana to leave your system. Return to the ER for fevers, lightheadedness or passing out, persistent vomiting, black or bloody stools, severe abdominal pain, new chest pain shortness of breath or other new or concerning symptoms. Prescriptions: No Action ondansetron HCl [Zofran] 8 mg tablet 8 mg PO Q8H PRN (Reason: nausea and vomiting) Qty: 10 RF: 0 aspirin [Adult Low Dose Aspirin] 81 mg Tablet,Delayed Release (Dr/Ec) 81 mg PO DAILY RF: 0 ondansetron 4 mg tablet,disintegrating 4 mg PO Q8H PRN (Reason: nausea and vomiting) Qty: 10 RF: 0
[2020-09-11] MEDS: ONDANSETRON 4 MG/2 ML INJ IV ×2 (06:38→07:59)
[2020-09-11] MEDS: SODIUM CHLORIDE 0.9% 1,000 ML 1000 ML IV ×2 (06:39→08:00)
[2020-09-11] MEDS: METOCLOPRAMIDE 10 MG/2 ML INJ IV (06:39)
[2020-09-11 06:44] LABS: Add Manual Diff / Slide Review NO; Basophils Absolute Auto 100 /uL (0-100); Eosinophils Absolute Auto 100 /uL (0-450); Eosinophils Percent Auto 0.9 % (2-4); Hematocrit 48.5 % (41-53); Hemoglobin 16.2 g/dL (13.5-17.5); Lymphocytes Absolute Auto 2200 /uL (1100-4500); Lymphocytes Percent Auto 25.8 % (25-40); Mean Corpuscular HGB Conc 33.4 % (30-36); Mean Corpuscular Hemoglobin 27.4 PG (26-34); Mean Corpuscular Volume 82.2 fL (80-100); Monocytes Absolute Auto 800 /uL (0-900); Monocytes Percent Auto 10.1 % (3-14); Neutrophils Absolute Auto 5200 /uL (1500-7000); Neutrophils Percent Auto 62.2 % (50-75); Platelet Count 167 X10^3/uL (150-400); Red Cell Distribution Width 13.7 % (11.6-14.8); White Blood Cell Count 8.4 X10^3/uL (4.5-11.0)
[2020-09-11 06:58] LABS: Alanine Aminotransferase 20 IU/L (<50); Albumin 4.7 g/dL (3.5-5.0); Albumin Globulin Ratio 1.5 (1.0-2.8); Alkaline Phosphatase 74 U/L (38-126); Aspartate Aminotransferase 26 IU/L (17-59); BUN Creatinine Ratio 15.1 (6-22); Bilirubin Total 0.5 mg/dL (0.2-1.3); Blood Urea Nitrogen 11 mg/dL (9-20); Carbon Dioxide 26 mmol/L (22-32); Chloride 101 mmol/L (98-107); Estimated Glomerular Filt Rate > 60.0 mL/min (>60); Globulin 3.2 g/dL (1.7-4.1); Glucose 233 mg/dL (80-110); HEMOLYSIS < 15 (0-50); Potassium 4.5 mmol/L (3.4-5.1); Sodium 136 mmol/L (137-145); Total Protein 7.9 g/dL (6.3-8.2)
[2020-09-11 07:24] LABS: Lipase 68 U/L (23-300)
[2020-09-11] MEDS: HALOPERIDOL 5 MG/ML VIAL IV (07:59)
[2020-09-11] MEDS: PANTOPRAZOLE 40 MG VIAL IV (07:59)
[2020-09-11] MEDS: diphenhydrAMINE 50 MG/ML VIAL 25 MG IV (08:00)
== END 2020-09-11 09:13 | disposition home or self-care (01) ==
PROVIDERS: Emergency Medicine; Emergency Provider Emergency Medicine
DX: R11.2 Nausea with vomiting, unspecified (principal); R10.9 Unspecified abdominal pain; F12.90 Cannabis use, unspecified, uncomplicated
CPT/HCPCS: 36415; 80053; 83690; 85025; 96361; 96374; 96375; 96376; 99283; 99284; C9113; J1200; J1630; J2405; J2765

== ENCOUNTER 2020-10-16 10:39 | Emergency (ER) | payer MEDICARE, MEDICAID, SELFPAY ==
[2020-10-16] VITALS (8 sets, daily range): BP systolic 131–165; BP diastolic 73–94; PULSE 71–83; RESP 12–20; TEMP 36.7; O2SAT 92–100; BMI 30.9
--- NOTE | 2020-10-16 11:12 | ED.ABDPAIN ---
HPI - Abdominal Pain General Chief Complaint: Abdominal Pain Stated Complaint: dehydration, nausea Time Seen by Provider: 10/16/20 10:40 Source: patient Mode of arrival: Ambulatory Limitations: no limitations History of Present Illness HPI narrative: 64-year-old male nonsmoker with history of cannabis hyperemesis and coronary artery disease presents with a chief complaint of generalized nausea and symptoms consistent with prior episodes since last night. He complains of diffuse abdominal pain rating at a 4/10 in the absence of provocation or palliation. Denies any significant vomiting but is profoundly nauseated. He denies any changes in medications or diet. He has had no fever chills. He denies any dizziness, weakness or lightheadedness. He has no shortness of breath, cough or chest pain. MD complaint: abdominal pain Onset (ago): hour(s) Pain Consistency: constant Location: diffuse Severity: mild Quality: cramping Radiation: none Migration to: no migration Relieving factors: nothing Exacerbating factors: nothing Associated symptoms: nausea Related Data Home Medications Medication Instructions Recorded Confirmed aspirin [Adult Low Dose Aspirin] 81 mg PO DAILY 04/12/20 04/12/20 Previous Rx's Medication Instructions Recorded ondansetron HCl [Zofran] 8 mg PO Q8H PRN #10 tab 10/20/19 ondansetron 4 mg PO Q8H PRN #10 tab 04/12/20 Allergies Allergy/AdvReac Type Severity Reaction Status Date / Time No Known Drug Allergies Allergy Verified 04/12/20 09:15 Review of Systems Constitutional Constitutional: Denies chills, Denies fatigue, Denies fever(s), Denies frequent falls, Denies lethargy and Denies weakness Eyes Eyes: Denies change in vision, Denies eye discharge, Denies irritation and Denies loss of vision ENT Ears, Nose, Mouth, and Throat: Denies change in voice, Denies dizziness, Denies neck pain, Denies sore throat and Denies throat swelling Cardiovascular Cardiovascular: Denies chest pain, Denies irregular heart rhythm, Denies lightheadedness, Denies palpitations, Denies dyspnea, Denies dyspnea on exertion and Denies orthopnea Respiratory Respiratory: Denies cough, Denies dyspnea, Denies dyspnea on exertion and Denies wheezing Gastrointestinal Gastrointestinal: Reports abdominal pain, Denies change in bowel habits, Denies diarrhea, Reports nausea and Denies vomiting Musculoskeletal Musculoskeletal: Denies neck pain and Denies numbness Integumentary/Breasts Skin/Breast: Denies pruritus, Denies erythema, Denies rash and Denies wounds Neurologic Neurologic: Denies behavioral changes, Denies confusion, Denies dizziness, Denies frequent falls, Denies loss of vision, Denies numbness and Denies weakness Psychiatric Psychiatric: Denies anxiety, Denies behavioral changes, Denies confusion, Denies depression, Denies homicidal ideation and Denies suicidal ideation Endocrine Endocrine: Denies fatigue, Denies flushing and Denies palpitations Hematologic/Lymphatic Hematologic/Lymphatic: Denies easy bruising Allergic/Immunologic Allergic/Immunologic: Denies urticaria, Denies throat swelling and Denies wheezing Patient History Social History Smoking Status: Never smoker Smoking Status: Never smoker alcohol intake frequency: 0-2 drinks per day Substance Use Type: marijuana Exam Narrative Exam Narrative: GENERAL: [64] year old patient appears stated age. Well-nourished, well-developed patient, in mild distress. HEAD: Atraumatic. Normocephalic. EYES: Pupils equal round and reactive. Extraocular motions intact. No scleral icterus. No injection or drainage. ENT: Nose without bleeding, purulent drainage. Throat without erythema, tonsillar hypertrophy or exudate. Airway patent. NECK: Trachea midline. Non tender CARDIOVASCULAR: Regular rate and rhythm without murmurs, gallops, or rubs. RESPIRATORY: Clear to auscultation. Breath sounds equal bilaterally. No wheezes, rales, or rhonchi. GASTROINTESTINAL: Abdomen soft, non-tender, nondistended. Bowel sounds in all 4 quadrants EXTREMITIES: No edema or joint tenderness. BACK: Nontender without deformity or crepitance. No flank tenderness. NEURO: AOx3. SKIN: No rash or erythema of visible areas Initial Vital Signs Initial Vital Signs: Vital Signs Temperature 98.1 F 10/16/20 10:46 Pulse Rate 71 10/16/20 10:46 Respiratory Rate 15 10/16/20 10:46 Blood Pressure 165/94 H 10/16/20 10:46 Pulse Oximetry 99 10/16/20 10:46 Course Orders Ordered: Discontinued Medications Sodium Chloride (Normal Saline 0.9%) 1,000 mls @ 1,000 mls/hr IV BOLUS ONE Stop: 10/16/20 12:23 Last Infusion: 10/16/20 12:24 Dose: 0 mls/hr Documented by: Admin: 10/16/20 11:39 Dose: 1,000 mls/hr Documented by: JACE Metoclopramide HCl (Metoclopramide 10 Mg/2 Ml Inj) 10 mg IV NOW ONE Stop: 10/16/20 11:25 Last Admin: 10/16/20 11:39 Dose: 10 mg Documented by: JACE Ondansetron HCl (Ondansetron 4 Mg/2 Ml Inj) 4 mg IV NOW ONE Stop: 10/16/20 11:25 Last Admin: 10/16/20 11:39 Dose: 4 mg Documented by: JACE Reevaluation(s) Reevaluation #1: patient feeling significantly better after above stated therapies Vital Signs Vital signs: Vital Signs - 8 hr 10/16/20 10:46 10/16/20 11:02 Temperature 98.1 F Pulse Rate 71 82 Respiratory Rate 15 20 Blood Pressure 165/94 H 165/94 H Pulse Oximetry 99 100 MDM - Abdominal Pain Lab Data Result diagrams: 10/16/20 11:20 10/16/20 11:20 Labs: Lab Results 10/16/20 10/16/20 10/16/20 Range/Units 11:20 11:20 11:20 WBC 9.2 (4.5-11.0) X10^3/uL RBC 5.76 (4.5-5.9) X10^6/uL Hgb 15.4 (13.5-17.5) g/dL Hct 46.1 (41-53) % MCV 80.0 (80-100) fL MCH 26.7 (26-34) PG MCHC 33.4 (30-36) % RDW 13.4 (11.6-14.8) % Plt Count 164 (150-400) X10^3/uL Neut % (Auto) 62.7 (50-75) % Lymph % (Auto) 24.9 L (25-40) % [place] % (Auto) 10.1 (3-14) % Eos % (Auto) 0.5 L (2-4) % Baso % (Auto) 1.8 (0-2) % Neut # (Auto) 5800 (2279-5932) /uL Lymph # (Auto) 2300 (9455-3603) /uL [place] # (Auto) 900 (0-900) /uL Eos # (Auto) 0 (0-450) /uL Baso # (Auto) 200 H (0-100) /uL PT 11.7 (10.1-12.7) SECONDS INR 1.0 (0.9-1.3) APTT 33 (26.4-36.2) SECONDS Sodium 135 L (137-145) mmol/L Potassium 3.7 (3.4-5.1) mmol/L Chloride 100 (98-107) mmol/L Carbon Dioxide 26 (22-32) mmol/L BUN 15 (9-20) mg/dL Creatinine 0.66 (0.66-1.25) mg/dL Estimated GFR > 60.0 (>60) mL/min BUN/Creatinine Ratio 22.7 H (6-22) Glucose 216 H (80-110) mg/dL Calcium 9.9 (8.4-10.2) mg/dL Total Bilirubin 0.7 (0.2-1.3) mg/dL AST 26 (17-59) IU/L ALT 21 (<50) IU/L Alkaline Phosphatase 67 (38-126) U/L Total Protein 7.7 (6.3-8.2) g/dL Albumin 4.6 (3.5-5.0) g/dL Globulin 3.1 (1.7-4.1) g/dL Albumin/Globulin Ratio 1.5 (1.0-2.8) Lipase 54 (23-300) U/L Discharge Plan Departure Patient Disposition: Home Clinical Impression: Nausea Abdominal pain Qualifiers: Abdominal location: generalized Qualified Code(s): R10.84 - Generalized abdominal pain Instructions: DI for Abdominal Pain-Adult Activity Restrictions/Additional Instructions: *You have been diagnosed with [abdominal pain resolved, nausea greatly improved, this is likely a recurrence of your hyperemesis. Labs and exam are very reassuring] *What to do: * continue to take medications as directed *Follow up with your primary care provider in 2-3 days, call for an appointment. Let them know you were seen in the Emergency Department and that we ask that you be seen in follow up *Return to ER if you should have any new, worsening or concerning symptoms, such as [worsening pain, recurrence of vomiting, fever greater than 101 F or other bothersome symptoms] Prescriptions: No Action ondansetron HCl [Zofran] 8 mg tablet 8 mg PO Q8H PRN (Reason: nausea and vomiting) Qty: 10 RF: 0 aspirin [Adult Low Dose Aspirin] 81 mg Tablet,Delayed Release (Dr/Ec) 81 mg PO DAILY RF: 0 ondansetron 4 mg tablet,disintegrating 4 mg PO Q8H PRN (Reason: nausea and vomiting) Qty: 10 RF: 0 Referrals: [facility] [Outside]
[2020-10-16 11:35] LABS: Add Manual Diff / Slide Review NO; Basophils Absolute Auto 200 /uL (0-100); Basophils Percent Auto 1.8 % (0-2); Eosinophils Absolute Auto 0 /uL (0-450); Eosinophils Percent Auto 0.5 % (2-4); Hematocrit 46.1 % (41-53); Hemoglobin 15.4 g/dL (13.5-17.5); Lymphocytes Absolute Auto 2300 /uL (1100-4500); Lymphocytes Percent Auto 24.9 % (25-40); Mean Corpuscular HGB Conc 33.4 % (30-36); Mean Corpuscular Hemoglobin 26.7 PG (26-34); Monocytes Absolute Auto 900 /uL (0-900); Monocytes Percent Auto 10.1 % (3-14); Neutrophils Absolute Auto 5800 /uL (1500-7000); Neutrophils Percent Auto 62.7 % (50-75); Platelet Count 164 X10^3/uL (150-400); Red Blood Cell Count 5.76 X10^6/uL (4.5-5.9); Red Cell Distribution Width 13.4 % (11.6-14.8); White Blood Cell Count 9.2 X10^3/uL (4.5-11.0)
[2020-10-16] MEDS: ONDANSETRON 4 MG/2 ML INJ IV (11:39)
[2020-10-16] MEDS: SODIUM CHLORIDE 0.9% 1,000 ML 1000 ML IV (11:39)
[2020-10-16] MEDS: METOCLOPRAMIDE 10 MG/2 ML INJ IV (11:39)
[2020-10-16 11:41] LABS: Prothrombin Time 11.7 SECONDS (10.1-12.7)
[2020-10-16 11:44] LABS: PTT Partial Thromboplastin Tim 33 SECONDS (26.4-36.2)
[2020-10-16 11:45] LABS: Alanine Aminotransferase 21 IU/L (<50); Albumin 4.6 g/dL (3.5-5.0); Albumin Globulin Ratio 1.5 (1.0-2.8); Alkaline Phosphatase 67 U/L (38-126); Aspartate Aminotransferase 26 IU/L (17-59); BUN Creatinine Ratio 22.7 (6-22); Bilirubin Total 0.7 mg/dL (0.2-1.3); Blood Urea Nitrogen 15 mg/dL (9-20); Calcium 9.9 mg/dL (8.4-10.2); Carbon Dioxide 26 mmol/L (22-32); Chloride 100 mmol/L (98-107); Estimated Glomerular Filt Rate > 60.0 mL/min (>60); Globulin 3.1 g/dL (1.7-4.1); Glucose 216 mg/dL (80-110); HEMOLYSIS 15 (0-50); Lipase 54 U/L (23-300); Potassium 3.7 mmol/L (3.4-5.1); Sodium 135 mmol/L (137-145); Total Protein 7.7 g/dL (6.3-8.2)
== END 2020-10-16 12:26 | disposition home or self-care (01) ==
PROVIDERS: Emergency Provider Emergency Medicine
DX: R10.84 Generalized abdominal pain (principal); R11.0 Nausea; Z79.82 Long term (current) use of aspirin; I25.10 Atherosclerotic heart disease of native coronary artery without angina pectoris
CPT/HCPCS: 36415; 80053; 83690; 85025; 85610; 85730; 93005; 93010; 96361; 96374; 96375; 99283; 99284; J2405; J2765

== ENCOUNTER 2021-04-04 18:52 | Emergency (ER) | payer MEDICARE, MEDICAID, SELFPAY ==
[2021-04-04 19:08] VITALS: BP 178/92; PULSE 82; RESP 16; TEMP 35.9; BMI 31.8
[2021-04-04] MEDS: ONDANSETRON 4 MG ODT SL (19:14)
[2021-04-04 22:39] LABS: Add Manual Diff / Slide Review NO; Basophils Absolute Auto 300 /uL (0-100); Basophils Percent Auto 2.3 % (0-2); Eosinophils Absolute Auto 0 /uL (0-450); Eosinophils Percent Auto 0.4 % (2-4); Hematocrit 50.7 % (41-53); Hemoglobin 16.7 g/dL (13.5-17.5); Lymphocytes Absolute Auto 900 /uL (1100-4500); Lymphocytes Percent Auto 8.3 % (25-40); Mean Corpuscular HGB Conc 32.9 % (30-36); Monocytes Absolute Auto 900 /uL (0-900); Monocytes Percent Auto 8.3 % (3-14); Neutrophils Absolute Auto 9000 /uL (1500-7000); Neutrophils Percent Auto 80.7 % (50-75); Platelet Count 161 X10^3/uL (150-400); Red Blood Cell Count 6.42 X10^6/uL (4.5-5.9); Red Cell Distribution Width 14.2 % (11.6-14.8); White Blood Cell Count 11.1 X10^3/uL (4.5-11.0)
[2021-04-04 22:41] LABS: Alanine Aminotransferase 22 IU/L (<50); Albumin 4.7 g/dL (3.5-5.0); Albumin Globulin Ratio 1.5 (1.0-2.8); Alkaline Phosphatase 78 U/L (38-126); Aspartate Aminotransferase 29 IU/L (17-59); Blood Urea Nitrogen 15 mg/dL (9-20); Calcium 10.3 mg/dL (8.4-10.2); Carbon Dioxide 19 mmol/L (22-32); Chloride 97 mmol/L (98-107); Estimated Glomerular Filt Rate > 60.0 mL/min (>60); Globulin 3.2 g/dL (1.7-4.1); Glucose 213 mg/dL (80-110); HEMOLYSIS 29 (0-50); Lipase 25 U/L (23-300); Potassium 4.3 mmol/L (3.4-5.1); Sodium 132 mmol/L (137-145); Total Protein 7.9 g/dL (6.3-8.2)
--- NOTE | 2021-04-04 22:57 | ED_ITS ---
HPI - Nausea/Vomiting/Diarrhea General Chief complaint: Nausea/Vomiting/Diarrhea Stated complaint: VOMITING SWEATING HYPEREMESIS Time Seen by Provider: 04/04/21 20:27 Source: patient Mode of arrival: Wheelchair History of Present Illness HPI Narrative: 65M nonsmoker with a history of of hyperemesis presents with the chief complaint of N/V over the day. He denies any fever or chills. He denies any pain. He has begun to feel a bit weak and fatigued and lightheaded upon sitting up. He denies any new medications or diet. He denies any dysuria, frequency or urgency. He denies any diarrhea or constipation. 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 He denies recent travel or exposure to persons whom are ill. Related Data Home Medications Medication Instructions Recorded Confirmed aspirin 81 mg tablet,delayed 81 mg PO DAILY 04/12/20 04/12/20 release (Adult Low Dose Aspirin) Previous Rx's Medication Instructions Recorded ondansetron HCl 8 mg tablet 8 mg PO Q8H PRN #10 tab 10/20/19 (Zofran) ondansetron 4 mg disintegrating 4 mg PO Q8H PRN #10 tab 04/12/20 tablet Allergies Allergy/AdvReac Type Severity Reaction Status Date / Time No Known Drug Allergies Allergy Verified 04/04/21 19:11 Review of Systems Review of Systems Narrative: GENERAL: Denies chills, fatigue, malaise, fever, sweats. HEENT: Denies sinus pain, ear pain, sore throat, difficulty swallowing, dizziness. RESPIRATORY: Denies dyspnea, cough, wheezing, hemoptysis, sputum. CARDIOVASCULAR: Denies chest pain, palpitations, orthopnea, edema, GASTROINTESTINAL: See HPI : Denies dysuria, frequency, incontinence, hematuria, urinary retention. MUSCULOSKELETAL: denies weakness, joint pain, or bony pain SKIN: Denies rash, skin lesions, or other NEUROLOGIC: Denies weakness, headache, numbness, change in speech, confusion, seizures, incoordination. PSYCHIATRIC: No concerning psychosocial issues. 12 point review of systems is negative except for those stated above Patient History Social History Smoking Status: Never smoker Smoking Status: Never smoker alcohol intake frequency: 0-2 drinks per day Substance Use Type: marijuana Exam Narrative Exam Narrative: GENERAL: [65] year old patient appears stated age. Well- developed patient, in mild distress. Clearly feeling unwell, holding an emesis bag HEAD: Atraumatic. Normocephalic. EYES: Pupils equal round and reactive. Extraocular motions intact. No scleral icterus. No injection or drainage. ENT: Nose without bleeding, purulent drainage. Throat without erythema, tonsilla r hypertrophy or exudate. Airway patent. NECK: Trachea midline. Non tender CARDIOVASCULAR: Regular rate and rhythm without murmurs, gallops, or rubs. RESPIRATORY: Clear to auscultation. Breath sounds equal bilaterally. No wheezes, rales, or rhonchi. GASTROINTESTINAL: Abdomen soft, non-tender, nondistended. Bowel sounds present in all 4 quadrants EXTREMITIES: No edema or joint tenderness. BACK: Nontender without deformity or crepitance. No flank tenderness. NEURO: AOx3. SKIN: No rash or erythema of visible areas Initial Vital Signs Initial Vital Signs: Vital Signs Temperature 96.6 F L 04/04/21 19:08 Pulse Rate 82 04/04/21 19:08 Respiratory Rate 16 04/04/21 19:08 Blood Pressure 178/92 H 04/04/21 19:08 Course Orders Ordered: ED Orders 04/04/21 22:22 Complete Blood Count AUTO DIFF Stat Comprehensive Metabolic Panel Stat Lipase Stat Discontinued Medications Haloperidol (Haloperidol 5 Mg/Ml Vial) 5 mg IV NOW ONE Stop: 04/04/21 22:59 Last Admin: 04/04/21 23:07 Dose: 5 mg Documented by: KIET Sodium Chloride (Normal Saline 0.9%) 1,000 mls @ 1,000 mls/hr IV BOLUS PRN PRN Reason: Fluid replacement Last Infusion: 04/05/21 01:37 Dose: 0 mls/hr Documented by: Admin: 04/04/21 23:07 Dose: 1,000 mls/hr Documented by: KIET Ondansetron HCl (Ondansetron 4 Mg Odt) 4 mg SL NOW ONE Stop: 04/04/21 19:13 Last Admin: 04/04/21 19:14 Dose: 4 mg Documented by: CHRISTA Pantoprazole Sodium (Pantoprazole 40 Mg Vial) 20 mg IV NOW ONE Stop: 04/04/21 22:59 Last Admin: 04/04/21 23:07 Dose: 20 mg Documented by: KIET Reevaluation(s) Reevaluation #1: Patient has significant improvement with above-stated therapies Vital Signs Vital signs: Vital Signs - 8 hr 04/04/21 23:00 04/05/21 01:38 Pulse Rate 80 70 Respiratory Rate 16 15 Blood Pressure 123/69 162/87 H Pulse Oximetry 98 100 MDM - Nausea/Vomiting/Diarrhea Lab Data Result diagrams: 04/04/21 22:22 04/04/21 22:22 Labs: Lab Results 04/04/21 04/04/21 Range/Units 22:22 22:22 WBC 11.1 H (4.5-11.0) X10^3/uL RBC 6.42 H (4.5-5.9) X10^6/uL Hgb 16.7 (13.5-17.5) g/dL Hct 50.7 (41-53) % MCV 79.0 L (80-100) fL MCH 26.0 (26-34) PG MCHC 32.9 (30-36) % RDW 14.2 (11.6-14.8) % Plt Count 161 (150-400) X10^3/uL Neut % (Auto) 80.7 H (50-75) % Lymph % (Auto) 8.3 L (25-40) % [place] % (Auto) 8.3 (3-14) % Eos % (Auto) 0.4 L (2-4) % Baso % (Auto) 2.3 H (0-2) % Neut # (Auto) 9000 H (2642-7027) /uL Lymph # (Auto) 900 L (6202-6560) /uL [place] # (Auto) 900 (0-900) /uL Eos # (Auto) 0 (0-450) /uL Baso # (Auto) 300 H (0-100) /uL Sodium 132 L (137-145) mmol/L Potassium 4.3 (3.4-5.1) mmol/L Chloride 97 L (98-107) mmol/L Carbon Dioxide 19 L (22-32) mmol/L BUN 15 (9-20) mg/dL Creatinine 0.75 (0.66-1.25) mg/dL Estimated GFR > 60.0 (>60) mL/min BUN/Creatinine Ratio 20.0 (6-22) Glucose 213 H (80-110) mg/dL Calcium 10.3 H (8.4-10.2) mg/dL Total Bilirubin 1.0 (0.2-1.3) mg/dL AST 29 (17-59) IU/L ALT 22 (<50) IU/L Alkaline Phosphatase 78 (38-126) U/L Total Protein 7.9 (6.3-8.2) g/dL Albumin 4.7 (3.5-5.0) g/dL Globulin 3.2 (1.7-4.1) g/dL Albumin/Globulin Ratio 1.5 (1.0-2.8) Lipase 25 (23-300) U/L MDM Narrative Medical decision making narrative: Multiple etiologies for patient's symptoms considered including: [Hyperemesis versus viral gastroenteritis versus bowel obstruction versus other] Patient's symptoms improved over duration of stay with above-stated therapies. Findings and discharge diagnosis discussed with patient/family followed by verbalization of understanding Return precautions discussed with patient/family whom verbalize understanding. Discharge Plan Departure Patient Disposition: Home Clinical Impression: Acute vomiting Instructions: DI for Vomiting -- Adult Activity Restrictions/Additional Instructions: *You have been diagnosed with [nausea and vomiting, with reassuring physical exam and response to medications *What to do: *Please continue to take your regular medications as directed. [ ] New medication prescriptions sent to your pharmacy: [ ] [ ] New medication written as a paper prescription [x ] No new medications given *Please follow up with your primary care provider in 2-3 days, call for an appointment. Let them know you were seen in the Emergency Department and that we ask that you be seen in follow up. We will electronically transmit a record of today's note if your PCP is in our system *If you do not have a primary care provider please contact the [facility] Resource line at [phone]. They will ask some questions about your medical history and help get you set up with a doctor in the community. *Return to Emergency Department if you should have any new, worsening or concerning symptoms, such as [fever greater than 101 F, shaking chills, worsening pain, persistent vomiting or other bothersome symptoms] Prescriptions: No Action ondansetron HCl [Zofran] 8 mg tablet 8 mg PO Q8H PRN (Reason: nausea and vomiting) Qty: 10 RF: 0 aspirin [Adult Low Dose Aspirin] 81 mg Tablet,Delayed Release (Dr/Ec) 81 mg PO DAILY RF: 0 ondansetron 4 mg tablet,disintegrating 4 mg PO Q8H PRN (Reason: nausea and vomiting) Qty: 10 RF: 0
[2021-04-04 23:00] VITALS: BP 123/69; PULSE 80; RESP 16; O2SAT 98
[2021-04-04] MEDS: HALOPERIDOL 5 MG/ML VIAL IV (23:07)
[2021-04-04] MEDS: PANTOPRAZOLE 40 MG VIAL 20 MG IV (23:07)
[2021-04-04] MEDS: SODIUM CHLORIDE 0.9% 1,000 ML 1000 ML IV (23:07)
[2021-04-05 01:38] VITALS: BP 162/87; PULSE 70; RESP 15; O2SAT 100
== END 2021-04-05 01:39 | disposition home or self-care (01) ==
PROVIDERS: Emergency Provider Emergency Medicine
DX: R11.2 Nausea with vomiting, unspecified (principal)
CPT/HCPCS: 36415; 80053; 83690; 85025; 96361; 96374; 96375; 99284; C9113; J1630

== ENCOUNTER 2021-06-05 07:27 | Emergency (ER) | payer MEDICARE, MEDICAID, SELFPAY ==
[2021-06-05] VITALS (15 sets, daily range): BP systolic 169–214; BP diastolic 83–91; PULSE 51–72; RESP 18; TEMP 36.6; O2SAT 94–100; BMI 36.8
--- NOTE | 2021-06-05 07:47 | ED_ITS ---
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 She he says this feels like when he is had hyper emesis and cyclic vomiting previously. Has Zofran and Haldol at home he tried taking Zofran but a came up immediately which point he came to the emergency department. He has all-over abdominal pain. He denies any chest pain palpitations shortness of breath. He has not had any fever or chills. He was feeling well yesterday. He smokes marijuana every day to help with chronic pain and also for pleasure. Related Data Home Medications Medication Instructions Recorded Confirmed aspirin 81 mg tablet,delayed 81 mg PO DAILY 04/12/20 04/12/20 release (Adult Low Dose Aspirin) Previous Rx's Medication Instructions Recorded ondansetron HCl 8 mg tablet 8 mg PO Q8H PRN #10 tab 10/20/19 (Zofran) ondansetron 4 mg disintegrating 4 mg PO Q8H PRN #10 tab 04/12/20 tablet haloperidol 2 mg tablet 2 mg PO Q8H PRN #7 tab 06/05/21 Allergies Allergy/AdvReac Type Severity Reaction Status Date / Time No Known Drug Allergies Allergy Verified 04/04/21 19:11 Review of Systems Review of Systems Narrative: GENERAL: Denies chills, fatigue, malaise, fever, sweats, travel HEENT: Denies sinus pain, ear pain, sore throat, difficulty swallowing, neck pain RESPIRATORY: Denies dyspnea, cough, wheezing, hemoptysis, sputum. CARDIOVASCULAR: Denies chest pain, palpitations, orthopnea, edema GASTROINTESTINAL: See HPI : Denies dysuria, frequency, incontinence, hematuria, urinary retention, flank pain. MUSCULOSKELETAL: Denies weakness, joint pain, or bony pain SKIN: No rash, no erythema, no pruritus NEUROLOGIC: Denies weakness, dizziness, headache, numbness, change in speech, confusion PSYCHIATRIC: No concerning psychosocial issues. 12 point review of systems is negative except for those stated above and HPI Patient History Social History Smoking Status: Never smoker Smoking Status: Never smoker alcohol intake frequency: 0-2 drinks per day Substance Use Type: marijuana Exam Initial Vital Signs Initial Vital Signs: Vital Signs Temperature 98 F 06/05/21 07:30 Pulse Rate 61 06/05/21 07:30 Respiratory Rate 18 06/05/21 07:30 Blood Pressure 169/83 H 06/05/21 07:30 Pulse Oximetry 100 06/05/21 07:30 GENERAL: Alert awake male no acute distress HEENT: Head atraumatic,EOMI, pupils reactive, face symmetric, moist mucous membranes CARDIOVASCULAR: Regular rate and rhythm without murmurs, rubs or gallops. RESPIRATORY: Breath sounds equal bilaterally, no wheezes rales or rhonchi. ABDOMEN: Soft, no real tenderness no localization of pain normal bowel sounds EXTREMITIES: Normal range of motion, no clubbing or edema. Neurovascularly intact NEUROLOGICAL: Alert and oriented x4.Normal gait and speech. SKIN: Warm, dry, no laceration, no petechiae, no rashes or lesions. Course Orders Ordered: Discontinued Medications Haloperidol (Haloperidol 5 Mg/Ml Vial) 2 mg IV NOW ONE Stop: 06/05/21 09:14 Last Admin: 06/05/21 09:45 Dose: 2 mg Documented by: JINNY Sodium Chloride (Normal Saline 0.9%) 1,000 mls @ 1,000 mls/hr IV BOLUS ONE Stop: 06/05/21 08:38 Last Infusion: 06/05/21 09:00 Dose: 0 mls/hr Documented by: Admin: 06/05/21 07:50 Dose: 1,000 mls/hr Documented by: JINNY Lorazepam (Lorazepam 2 Mg/Ml Inj) 0.5 mg IV NOW ONE Stop: 06/05/21 10:35 Last Admin: 06/05/21 11:37 Dose: Not Given Documented by: JINNY Ondansetron HCl (Ondansetron 4 Mg/2 Ml Inj) 4 mg IV NOW ONE Stop: 06/05/21 07:40 Last Admin: 06/05/21 07:50 Dose: 4 mg Documented by: JINNY Pantoprazole Sodium (Pantoprazole 40 Mg Vial) 40 mg IV NOW ONE Stop: 06/05/21 07:40 Last Admin: 06/05/21 07:50 Dose: 40 mg Documented by: JINNY Vital Signs Vital signs: Vital Signs - 8 hr 06/05/21 11:00 06/05/21 11:01 Pulse Rate 54 L 55 L Respiratory Rate 18 Blood Pressure 188/85 H Pulse Oximetry 97 98 MDM - Abdominal Pain Lab Data Result diagrams: 06/05/21 07:50 06/05/21 07:50 Labs: Lab Results 06/05/21 06/05/21 Range/Units 07:50 07:50 WBC 7.5 (4.5-11.0) X10^3/uL RBC 6.17 H (4.5-5.9) X10^6/uL Hgb 15.8 (13.5-17.5) g/dL Hct 48.5 (41-53) % MCV 78.7 L (80-100) fL MCH 25.6 L (26-34) PG MCHC 32.6 (30-36) % RDW 14.0 (11.6-14.8) % Plt Count 132 L (150-400) X10^3/uL Neut % (Auto) 70.9 (50-75) % Lymph % (Auto) 17.8 L (25-40) % [place] % (Auto) 8.6 (3-14) % Eos % (Auto) 1.1 L (2-4) % Baso % (Auto) 1.6 (0-2) % Neut # (Auto) 5300 (4553-1787) /uL Lymph # (Auto) 1300 (4418-5994) /uL [place] # (Auto) 600 (0-900) /uL Eos # (Auto) 100 (0-450) /uL Baso # (Auto) 100 (0-100) /uL Sodium 135 L (137-145) mmol/L Potassium 4.1 (3.4-5.1) mmol/L Chloride 99 (98-107) mmol/L Carbon Dioxide 28 (22-32) mmol/L BUN 12 (9-20) mg/dL Creatinine 0.57 L (0.66-1.25) mg/dL Estimated GFR > 60.0 (>60) mL/min BUN/Creatinine Ratio 21.1 (6-22) Glucose 302 H (80-110) mg/dL Calcium 9.7 (8.4-10.2) mg/dL Total Bilirubin 0.7 (0.2-1.3) mg/dL AST 22 (17-59) IU/L ALT 21 (<50) IU/L Alkaline Phosphatase 76 (38-126) U/L Total Protein 6.8 (6.3-8.2) g/dL Albumin 4.1 (3.5-5.0) g/dL Globulin 2.7 (1.7-4.1) g/dL Albumin/Globulin Ratio 1.5 (1.0-2.8) Lipase 64 (23-300) U/L MDM Narrative Medical decision making narrative: Patient does have history of hyperemesis seco ndary to cannabis use. This seems to be what it is. His abdomen is relatively soft, at this time I see no need for imaging. His nausea has improved with anti nausea medication. Haldol works the best for him. He is now tolerating oral fluids and feels ready able to go home. Request prescription for Haldol given a small amount. Discharge Plan Departure Patient Disposition: Home Clinical Impression: Cyclical vomiting Instructions: DI for Vomiting -- Adult Activity Restrictions/Additional Instructions: 1) You have been diagnosed with vomiting 2) What to do: Drink frequent but small amounts of fluids. I recommend Gatorade or a Gatorade-like product, as it has small amounts of sugar and salts that improve fluid retention. 3) Take medications as directed Haldol 2 mg every 8 hours needed for nausea or vomiting 4) Follow up with your primary care provider in 2-3 days 5) Return to ER if you should have any new or worsening symptoms such as, unable to hold down fluids despite use of anti-nausea medications and the small volume oral rehydration strategy. Prescriptions: New haloperidol 2 mg tablet 2 mg PO Q8H PRN (Reason: nausea and vomiting) Qty: 7 RF: 0 No Action ondansetron HCl [Zofran] 8 mg tablet 8 mg PO Q8H PRN (Reason: nausea and vomiting) Qty: 10 RF: 0 aspirin [Adult Low Dose Aspirin] 81 mg Tablet,Delayed Release (Dr/Ec) 81 mg PO DAILY RF: 0 ondansetron 4 mg tablet,disintegrating 4 mg PO Q8H PRN (Reason: nausea and vomiting) Qty: 10 RF: 0
[2021-06-05] MEDS: PANTOPRAZOLE 40 MG VIAL IV (07:50)
[2021-06-05] MEDS: SODIUM CHLORIDE 0.9% 1,000 ML 1000 ML IV (07:50)
[2021-06-05] MEDS: ONDANSETRON 4 MG/2 ML INJ IV (07:50)
[2021-06-05 08:03] LABS: Add Manual Diff / Slide Review NO; Basophils Absolute Auto 100 /uL (0-100); Basophils Percent Auto 1.6 % (0-2); Eosinophils Absolute Auto 100 /uL (0-450); Eosinophils Percent Auto 1.1 % (2-4); Hematocrit 48.5 % (41-53); Hemoglobin 15.8 g/dL (13.5-17.5); Lymphocytes Absolute Auto 1300 /uL (1100-4500); Lymphocytes Percent Auto 17.8 % (25-40); Mean Corpuscular HGB Conc 32.6 % (30-36); Mean Corpuscular Hemoglobin 25.6 PG (26-34); Mean Corpuscular Volume 78.7 fL (80-100); Monocytes Absolute Auto 600 /uL (0-900); Monocytes Percent Auto 8.6 % (3-14); Neutrophils Absolute Auto 5300 /uL (1500-7000); Neutrophils Percent Auto 70.9 % (50-75); Platelet Count 132 X10^3/uL (150-400); Red Blood Cell Count 6.17 X10^6/uL (4.5-5.9); White Blood Cell Count 7.5 X10^3/uL (4.5-11.0)
[2021-06-05 08:15] LABS: Alanine Aminotransferase 21 IU/L (<50); Albumin 4.1 g/dL (3.5-5.0); Albumin Globulin Ratio 1.5 (1.0-2.8); Alkaline Phosphatase 76 U/L (38-126); Aspartate Aminotransferase 22 IU/L (17-59); BUN Creatinine Ratio 21.1 (6-22); Bilirubin Total 0.7 mg/dL (0.2-1.3); Blood Urea Nitrogen 12 mg/dL (9-20); Calcium 9.7 mg/dL (8.4-10.2); Carbon Dioxide 28 mmol/L (22-32); Chloride 99 mmol/L (98-107); Estimated Glomerular Filt Rate > 60.0 mL/min (>60); Globulin 2.7 g/dL (1.7-4.1); Glucose 302 mg/dL (80-110); HEMOLYSIS < 15 (0-50); Lipase 64 U/L (23-300); Potassium 4.1 mmol/L (3.4-5.1); Sodium 135 mmol/L (137-145); Total Protein 6.8 g/dL (6.3-8.2)
[2021-06-05] MEDS: HALOPERIDOL 5 MG/ML VIAL 2 MG IV (09:45)
--- NOTE | 2021-06-05 11:21 | PC.NURSE ---
po challenge successful, no vomiting, tolerating water, im about ready to go home soon
== END 2021-06-05 11:38 | disposition home or self-care (01) ==
PROVIDERS: Emergency Provider Emergency Medicine
DX: R11.15 Cyclical vomiting syndrome unrelated to migraine (principal); F12.90 Cannabis use, unspecified, uncomplicated
CPT/HCPCS: 36415; 80053; 83690; 85025; 96361; 96374; 96375; 99284; C9113; J1630; J2405

== ENCOUNTER 2021-07-17 07:21 | Emergency (ER) | payer MEDICARE, MEDICAID, SELFPAY ==
[2021-07-17] VITALS (8 sets, daily range): BP systolic 179–206; BP diastolic 81–95; PULSE 58–86; RESP 18–20; TEMP 36.7; O2SAT 96–100; BMI 30.9
--- NOTE | 2021-07-17 07:52 | ED.NAVMDI ---
HPI - Nausea/Vomiting/Diarrhea General Chief complaint: Nausea/Vomiting/Diarrhea Stated complaint: hyperemisis Time Seen by Provider: 07/17/21 07:37 Source: patient Mode of arrival: Ambulatory Limitations: no limitations History of Present Illness HPI Narrative: This is a 65-year-old male who presents with vomiting. Patient states he knows cause he has hyperemesis cannabis syndrome. Patient states he continues to use marijuana does not intend to stop. He was seen 2 days ago at [place] and has been here before for similar symptoms. Patient states that this time it seems more ?violent? but otherwise no different. He appears quite uncomfortable. Patient denies any chest pain or pressure. He states he feels a little short of breath but that is typical. He has abdominal discomfort. He has been vomiting and dry heaving intermittently. He denies any diarrhea constipation. He denies any urinary symptoms. No new back or flank pain. No lightheadedness or passing out. Patient does have a history of CABG and takes daily medications for his heart, laminectomy and knee surgery. He states that he often responds well to Haldol. He denies any other drug allergies. He denies any other surgical history. He denies tobacco. He denies any other illicit. States he was driven here today by his . Related Data Home Medications Medication Instructions Recorded Confirmed aspirin 81 mg tablet,delayed 81 mg PO DAILY 04/12/20 04/12/20 release (Adult Low Dose Aspirin) Previous Rx's Medication Instructions Recorded ondansetron HCl 8 mg tablet 8 mg PO Q8H PRN #10 tab 10/20/19 (Zofran) ondansetron 4 mg disintegrating 4 mg PO Q8H PRN #10 tab 04/12/20 tablet haloperidol 2 mg tablet 2 mg PO Q8H PRN #7 tab 06/05/21 Allergies Allergy/AdvReac Type Severity Reaction Status Date / Time No Known Drug Allergies Allergy Verified 04/04/21 19:11 Review of Systems Review of Systems ROS Unobtainable: All systems reviewed & are unremarkable except as noted in HPI and below Patient History Social History Smoking Status: Never smoker Smoking Status: Never smoker alcohol intake frequency: 0-2 drinks per day Substance Use Type: marijuana Exam Narrative Exam Narrative: GEN: Obese, well appearing male, alert and oriented, patient appears to be in moderate distress. Patient is diaphoretic. HEENT: Atraumatic, pupils are equal round reactive to light, extraocular movements are intact, nares are clear. Throat is clear without any exudates, erythema, tonsillar enlargement or uvular deviation HEART: Regular rate and rhythm without murmur, clicks, rubs. Pulses are equal in upper and lower extremities LUNGS:Lungs clear to auscultation, no wheezes, rales, crackles, chest moves symmetrically, no tachypnea accessory muscle use. ABD:bowel sounds normal, soft, non-tender, no guarding, rebound, rigidity, no masses noted, no hepatosplenomegaly, patient is actively retching in the room. Minimal amount of clear emesis in the bag. :No CVA tenderness MSCL: Non-tender, full range of motion NEURO:CN 2-12 intact, sensation normal SKIN: No rash, erythema or other skin changes noted. Initial Vital Signs Initial Vital Signs: Vital Signs Pulse Rate 86 07/17/21 07:39 Respiratory Rate 20 07/17/21 07:39 Blood Pressure 190/81 H 07/17/21 07:39 Pulse Oximetry 100 07/17/21 07:39 Course Orders Ordered: Discontinued Medications Atenolol (Atenolol 25 Mg Tablet) 25 mg PO NOW ONE Stop: 07/17/21 10:10 Last Admin: 07/17/21 10:19 Dose: 25 mg Documented by: JORDYN Diphenhydramine HCl (Diphenhydramine 50 Mg/Ml Vial) 25 mg IV NOW ONE Stop: 07/17/21 11:15 Last Admin: 07/17/21 11:29 Dose: 25 mg Documented by: JORDYN Haloperidol (Haloperidol 5 Mg/Ml Vial) 5 mg IV NOW ONE Stop: 07/17/21 07:59 Last Admin: 07/17/21 08:31 Dose: 5 mg Documented by: JORDYN Sodium Chloride (Normal Saline 0.9%) 1,000 mls @ 1,000 mls/hr IV BOLUS ONE Stop: 07/17/21 08:53 Last Infusion: 07/17/21 10:49 Dose: 0 mls/hr Documented by: Admin: 07/17/21 08:27 Dose: 1,000 mls/hr Documented by: JORDYN Lorazepam (Lorazepam 2 Mg/Ml Inj) 0.5 mg IV NOW ONE Stop: 07/17/21 09:27 Last Admin: 07/17/21 09:37 Dose: 0.5 mg Documented by: JORDYN Metoclopramide HCl (Metoclopramide Hcl 10 Mg Tablet) 10 mg PO NOW ONE Stop: 07/17/21 10:15 Last Admin: 07/17/21 10:20 Dose: 10 mg Documented by: JORDYN Pantoprazole Sodium (Pantoprazole 40 Mg Vial) 40 mg IV NOW ONE Stop: 07/17/21 07:59 Last Admin: 07/17/21 08:32 Dose: 40 mg Documented by: JORDYN Reevaluation(s) Reevaluation #1: Patient had not had any additional emesis. He found Haldol helpful but is starting to feel nauseated again. Patient fluids are still running. Labs are reassuring. Time: 09:24 Reevaluation #2: patient is hypertensive. He takes atenolol but does not know his dose. He had not had his recent dosage secondary to vomiting. Reevaluation #3: Patient has nausea but has not had any additional vomiting. He still has some abdominal pain but defers anything for pain. Patient was able to ambulate to the bathroom had bowel movement and was able to take his oral antihypertensive. At this time patient prefers to return home. We discussed continued observation in the department but he has been tolerating orals. It was noted that his glucose was elevated 11 anion gap of 18. Time: 11:09 Vital Signs Vital signs: Vital Signs - 8 hr 07/17/21 10:30 07/17/21 10:39 07/17/21 11:03 Temperature 98.1 F Pulse Rate 59 L 62 Respiratory Rate Blood Pressure 204/90 H 188/87 H Pulse Oximetry 100 100 07/17/21 11:40 Temperature Pulse Rate 61 Respiratory Rate 18 Blood Pressure 206/95 H Pulse Oximetry 100 MDM - Nausea/Vomiting/Diarrhea Lab Data Result diagrams: 07/17/21 08:34 07/17/21 08:34 Labs: Lab Results 07/17/21 07/17/21 07/17/21 Range/Units 08:34 08:34 08:34 WBC 9.7 (4.5-11.0) X10^3/uL RBC 6.58 H (4.5-5.9) X10^6/uL Hgb 17.0 (13.5-17.5) g/dL Hct 51.5 (41-53) % MCV 78.3 L (80-100) fL MCH 25.8 L (26-34) PG MCHC 33.0 (30-36) % RDW 14.3 (11.6-14.8) % Plt Count 196 (150-400) X10^3/uL Neut % (Auto) 75.1 H (50-75) % Lymph % (Auto) 15.5 L (25-40) % [place] % (Auto) 8.2 (3-14) % Eos % (Auto) 0.6 L (2-4) % Baso % (Auto) 0.6 (0-2) % Neut # (Auto) 7300 H (3276-0359) /uL Lymph # (Auto) 1500 (8507-5585) /uL [place] # (Auto) 800 (0-900) /uL Eos # (Auto) 100 (0-450) /uL Baso # (Auto) 100 (0-100) /uL Sodium 137 (137-145) mmol/L Potassium 4.3 (3.4-5.1) mmol/L Chloride 99 (98-107) mmol/L Carbon Dioxide 20 L (22-32) mmol/L BUN 12 (9-20) mg/dL Creatinine 0.79 (0.66-1.25) mg/dL Estimated GFR > 60.0 (>60) mL/min BUN/Creatinine Ratio 15.2 (6-22) Glucose 261 H (80-110) mg/dL Calcium 10.8 H (8.4-10.2) mg/dL Total Bilirubin 0.8 (0.2-1.3) mg/dL AST 30 (17-59) IU/L ALT 24 (<50) IU/L Alkaline Phosphatase 82 (38-126) U/L Total Creatine Kinase (55-170) U/L CK-MB (CK-2) CK-MB (CK-2) Rel Index Troponin I (0.01-0.034) ng/mL Total Protein 8.3 H (6.3-8.2) g/dL Albumin 5.0 (3.5-5.0) g/dL Globulin 3.3 (1.7-4.1) g/dL Albumin/Globulin Ratio 1.5 (1.0-2.8) Lipase 83 (23-300) U/L 07/17/ Range/Units 08:34 WBC (4.5-11.0) X10^3/uL RBC (4.5-5.9) X10^6/uL Hgb (13.5-17.5) g/dL Hct (41-53) % MCV (80-100) fL MCH (26-34) PG MCHC (30-36) % RDW (11.6-14.8) % Plt Count (150-400) X10^3/uL Neut % (Auto) (50-75) % Lymph % (Auto) (25-40) % [place] % (Auto) (3-14) % Eos % (Auto) (2-4) % Baso % (Auto) (0-2) % Neut # (Auto) (7163-0473) /uL Lymph # (Auto) (3488-9522) /uL Sherman # (Auto) (0-900) /uL Eos # (Auto) (0-450) /uL Baso # (Auto) (0-100) /uL Sodium (137-145) mmol/L Potassium (3.4-5.1) mmol/L Chloride (98-107) mmol/L Carbon Dioxide (22-32) mmol/L BUN (9-20) mg/dL Creatinine (0.66-1.25) mg/dL Estimated GFR (>60) mL/min BUN/Creatinine Ratio (6-22) Glucose (80-110) mg/dL Calcium (8.4-10.2) mg/dL Total Bilirubin (0.2-1.3) mg/dL AST (17-59) IU/L ALT (<50) IU/L Alkaline Phosphatase (38-126) U/L Total Creatine Kinase 38 L (55-170) U/L CK-MB (CK-2) TNP CK-MB (CK-2) Rel Index TNP Troponin I < 0.012 (0.01-0.034) ng/mL Total Protein (6.3-8.2) g/dL Albumin (3.5-5.0) g/dL Globulin (1.7-4.1) g/dL Albumin/Globulin Ratio (1.0-2.8) Lipase (23-300) U/L Point of Care Testing Glucose POC 184 Urine Dip Bedside Urine Glucose 1000 mg/dl Bedside Urine Bilirubin - Negative Bedside Urine Ketone +++ 80 Urine Specific [place] 1.015 Bedside Urine Occult Blood - Negative Bedside Urine pH 6.0 Bedside Urine Protein - Negative Bedside Urine Urobilinogen - Negative Bedside Urine Nitrite - Negative Bedside Urine Leukocytes - Negative Esterase ECG Data Attestation: I personally reviewed and interpreted this ECG as follows: Prior ECG tracings: available for review Interpretation: Sinus rhythm with sinus arrhythmia. Rate of 60 FL 196 QRS of 104 and QTC 434. No acute ST changes appreciated. Patient has prior from 10/16/2020 which appears similar. [facility] Narrative Medical decision making narrative: This is a 65-year-old male who comes in with suspected hyperemesis cannabis syndrome. He has had this in the past he continues to smoke marijuana. He is noted to have elevated glucose ketones and anion gap. His glucose improved after fluids. Has had some continued nausea but has not had any additional emesis. He continues to have abdominal pain but defers any additional pain medication or workup. Patient was discharged home but with strict return precautions. EKG and troponin were included. Abdominal labs are otherwise reassuring. Discharge Plan Departure Patient Disposition: Home Clinical Impression: Cannabinoid hyperemesis syndrome Instructions: DI for Cannabinoid Hyperemesis Syndrome Activity Restrictions/Additional Instructions: Follow up with your physician. You may find it helpful to try alternative forms of ingestion to see if this is helpful. Please return for new or worsening symptoms, chest pain or shortness of breath, lightheadedness or passing out, persistent vomiting, black or bloody stools, new abdominal or back pain or other new or concerning symptoms. Prescriptions: No Action ondansetron HCl [Zofran] 8 mg tablet 8 mg PO Q8H PRN (Reason: nausea and vomiting) Qty: 10 RF: 0 haloperidol 2 mg tablet 2 mg PO Q8H PRN (Reason: nausea and vomiting) Qty: 7 RF: 0 aspirin [Adult Low Dose Aspirin] 81 mg Tablet,Delayed Release (Dr/Ec) 81 mg PO DAILY RF: 0 ondansetron 4 mg tablet,disintegrating 4 mg PO Q8H PRN (Reason: nausea and vomiting) Qty: 10 RF: 0
[2021-07-17] MEDS: SODIUM CHLORIDE 0.9% 1,000 ML 1000 ML IV (08:27)
[2021-07-17] MEDS: HALOPERIDOL 5 MG/ML VIAL IV (08:31)
[2021-07-17] MEDS: PANTOPRAZOLE 40 MG VIAL IV (08:32)
[2021-07-17 08:47] LABS: Add Manual Diff / Slide Review NO; Basophils Absolute Auto 100 /uL (0-100); Basophils Percent Auto 0.6 % (0-2); Eosinophils Absolute Auto 100 /uL (0-450); Eosinophils Percent Auto 0.6 % (2-4); Hematocrit 51.5 % (41-53); Lymphocytes Absolute Auto 1500 /uL (1100-4500); Lymphocytes Percent Auto 15.5 % (25-40); Mean Corpuscular Hemoglobin 25.8 PG (26-34); Mean Corpuscular Volume 78.3 fL (80-100); Monocytes Absolute Auto 800 /uL (0-900); Monocytes Percent Auto 8.2 % (3-14); Neutrophils Absolute Auto 7300 /uL (1500-7000); Neutrophils Percent Auto 75.1 % (50-75); Platelet Count 196 X10^3/uL (150-400); Red Blood Cell Count 6.58 X10^6/uL (4.5-5.9); Red Cell Distribution Width 14.3 % (11.6-14.8); White Blood Cell Count 9.7 X10^3/uL (4.5-11.0)
[2021-07-17 09:07] LABS: Alanine Aminotransferase 24 IU/L (<50); Albumin Globulin Ratio 1.5 (1.0-2.8); Alkaline Phosphatase 82 U/L (38-126); Aspartate Aminotransferase 30 IU/L (17-59); BUN Creatinine Ratio 15.2 (6-22); Bilirubin Total 0.8 mg/dL (0.2-1.3); Blood Urea Nitrogen 12 mg/dL (9-20); Calcium 10.8 mg/dL (8.4-10.2); Carbon Dioxide 20 mmol/L (22-32); Chloride 99 mmol/L (98-107); Creatine Kinase 38 U/L (55-170); Estimated Glomerular Filt Rate > 60.0 mL/min (>60); Globulin 3.3 g/dL (1.7-4.1); Glucose 261 mg/dL (80-110); HEMOLYSIS 18 (0-50); Potassium 4.3 mmol/L (3.4-5.1); Sodium 137 mmol/L (137-145); Total Protein 8.3 g/dL (6.3-8.2)
[2021-07-17 09:08] LABS: Lipase 83 U/L (23-300)
[2021-07-17 09:19] LABS: Troponin I < 0.012 ng/mL (0.01-0.034)
[2021-07-17] MEDS: LORazepam 2 MG/ML INJ 0.5 MG IV (09:37)
[2021-07-17] MEDS: atenoloL 25 MG TABLET PO (10:19)
[2021-07-17] MEDS: METOCLOPRAMIDE HCL 10 MG TABLET PO (10:20)
[2021-07-17] MEDS: diphenhydrAMINE 50 MG/ML VIAL 25 MG IV (11:29)
== END 2021-07-17 11:41 | disposition home or self-care (01) ==
PROVIDERS: Emergency Provider Emergency Medicine
DX: R11.2 Nausea with vomiting, unspecified (principal); I10 Essential (primary) hypertension; I49.9 Cardiac arrhythmia, unspecified
CPT/HCPCS: 36415; 80053; 81003; 82550; 83690; 84484; 85025; 93005; 96361; 96374; 96375; 99284; C9113; J1200; J1630; J2060

== ENCOUNTER 2021-10-16 06:55 | Emergency (ER) | payer MEDICARE, MEDICAID, SELFPAY ==
[2021-10-16 07:03] VITALS: BP 212/98; PULSE 69; RESP 18; TEMP 36.5; O2SAT 100; BMI 50.1
--- NOTE | 2021-10-16 07:14 | ED.NAVMDI ---
HPI - Nausea/Vomiting/Diarrhea General Chief complaint: Nausea/Vomiting/Diarrhea Stated complaint: vomiting x6 hours Time Seen by Provider: 10/16/21 07:02 Source: patient Mode of arrival: Ambulatory History of Present Illness HPI Narrative: Patient is a 65-year-old male with history of coronary artery disease, bipolar and hyperemesis cannabis presenting today with nausea vomiting. He says it started around 1:00 a.m. and he is unable to stop. He denies any hematemesis. He says Zofran and Haldol usually help. He denies any chest pain, shortness of breath orabdominal pain He is quite diaphoretic and actively vomiting. He says he continues to smoke marijuana daily. Related Data Home Medications Medication Instructions Recorded Confirmed aspirin 81 mg tablet,delayed 81 mg PO DAILY 04/12/20 04/12/20 release (Adult Low Dose Aspirin) Previous Rx's Medication Instructions Recorded ondansetron HCl 8 mg tablet 8 mg PO Q8H PRN #10 tab 10/20/19 (Zofran) ondansetron 4 mg disintegrating 4 mg PO Q8H PRN #10 tab 04/12/20 tablet haloperidol 2 mg tablet 2 mg PO Q8H PRN #7 tab 06/05/21 promethazine 25 mg tablet 25 mg PO Q6H PRN #10 tab 10/16/21 Allergies Allergy/AdvReac Type Severity Reaction Status Date / Time No Known Drug Allergies Allergy Verified 04/04/21 19:11 Review of Systems Review of Systems Narrative: GENERAL: Denies chills, fatigue, malaise, fever, sweats, travel HEENT: Denies sinus pain, ear pain, sore throat, difficulty swallowing, neck pain RESPIRATORY: Denies dyspnea, cough, wheezing, hemoptysis, sputum. CARDIOVASCULAR: Denies chest pain, palpitations, orthopnea, edema GASTROINTESTINAL: See HPI : Denies dysuria, frequency, incontinence, hematuria, urinary retention, flank pain. MUSCULOSKELETAL: Denies weakness, joint pain, or bony pain SKIN: No rash, no erythema, no pruritus NEUROLOGIC: Denies weakness, dizziness, headache, numbness, change in speech, confusion PSYCHIATRIC: No concerning psychosocial issues. 12 point review of systems is negative except for those stated above and HPI Patient History Medical History (Updated 10/16/21 @ 08:58 by Alaina Mcintosh DO) Cannabinoid hyperemesis syndrome Coronary artery disease Diabetes Social History Smoking Status: Never smoker Smoking Status: Never smoker alcohol intake frequency: 0-2 drinks per day Substance Use Type: marijuana Exam Initial Vital Signs Initial Vital Signs: Vital Signs Temperature 97.7 F 10/16/21 07:03 Pulse Rate 69 10/16/21 07:03 Respiratory Rate 18 10/16/21 07:03 Blood Pressure 212/98 H 10/16/21 07:03 Pulse Oximetry 100 10/16/21 07:03 GENERAL: Diaphoretic slightly pale actively vomiting alert and oriented HEENT: Head atraumatic,EOMI, pupils reactive, face symmetric, moist mucous membranes CARDIOVASCULAR: Regular rate and rhythm without murmurs, rubs or gallops. RESPIRATORY: Breath sounds equal bilaterally, no wheezes rales or rhonchi. ABDOMEN: Soft, nontender. Normoactive bowel sounds all 4 quadrants. No guarding or rebound. EXTREMITIES: Normal range of motion, no clubbing or edema. Neurovascularly intact NEUROLOGICAL: Alert and oriented x4. SKIN: Warm, dry, no laceration, no petechiae, no rashes or lesions. Course Orders Ordered: ED Orders 10/16/21 07:14 EKG-12 Lead Stat 10/16/21 07:23 Complete Blood Count AUTO DIFF Stat Comprehensive Metabolic Panel Stat Lactate (Lactic Acid) Stat Lipase Stat Troponin & CK Cardiac Panel Stat Discontinued Medications Haloperidol (Haloperidol 5 Mg/Ml Vial) 2 mg IV NOW ONE Stop: 10/16/21 07:16 Last Admin: 10/16/21 07:27 Dose: 2 mg Documented by: GIGI Sodium Chloride (Normal Saline 0.9%) 1,000 mls @ 1,000 mls/hr IV CONT DOMINGA Last Infusion: 10/16/21 09:11 Dose: 0 mls/hr Documented by: Admin: 10/16/21 07:27 Dose: 1,000 mls/hr Documented by: GIGI Ondansetron HCl (Ondansetron 4 Mg/2 Ml Inj) 4 mg IV NOW ONE Stop: 10/16/21 07:15 Last Admin: 10/16/21 07:27 Dose: 4 mg Documented by: GIGI Pantoprazole Sodium (Pantoprazole 40 Mg Vial) 40 mg IV NOW ONE Stop: 10/16/21 07:15 Last Admin: 10/16/21 07:27 Dose: 40 mg Documented by: GIGI Vital Signs Vital signs: Vital Signs - 8 hr 10/16/21 07:03 10/16/21 09:06 Temperature 97.7 F Pulse Rate 69 55 L Respiratory Rate 18 16 Blood Pressure 212/98 H 213/94 H Pulse Oximetry 100 99 MDM - Nausea/Vomiting/Diarrhea Lab Data Result diagrams: 10/16/21 07:23 10/16/21 07:23 Labs: Lab Results 10/16/21 10/16/21 10/16/21 Range/Units 07:23 07:23 07:23 WBC 8.7 (4.5-11.0) X10^3/uL RBC 6.04 H (4.5-5.9) X10^6/uL Hgb 15.8 (13.5-17.5) g/dL Hct 48.1 (41-53) % MCV 79.6 L (80-100) fL MCH 26.2 (26-34) PG MCHC 32.9 (30-36) % RDW 14.3 (11.6-14.8) % Plt Count 187 (150-400) X10^3/uL Neut % (Auto) 70.5 (50-75) % Lymph % (Auto) 20.3 L (25-40) % [place] % (Auto) 8.0 (3-14) % Eos % (Auto) 0.8 L (2-4) % Baso % (Auto) 0.4 (0-2) % Neut # (Auto) 6100 (4099-5155) /uL Lymph # (Auto) 1800 (6498-3083) /uL [place] # (Auto) 700 (0-900) /uL Eos # (Auto) 100 (0-450) /uL Baso # (Auto) 0 (0-100) /uL Sodium 137 (137-145) mmol/L Potassium 3.8 (3.4-5.1) mmol/L Chloride 102 (98-107) mmol/L Carbon Dioxide 24 (22-32) mmol/L BUN 13 (9-20) mg/dL Creatinine 0.72 (0.66-1.25) mg/dL Estimated GFR > 60.0 (>60) mL/min BUN/Creatinine Ratio 18.1 (6-22) Glucose 201 H (80-110) mg/dL Lactate 2.3 H (0.7-2.1) mmol/L Calcium 10.2 (8.4-10.2) mg/dL Total Bilirubin 0.7 (0.2-1.3) mg/dL AST 27 (17-59) IU/L ALT 22 (<50) IU/L Alkaline Phosphatase 90 (38-126) U/L Total Creatine Kinase 47 L (55-170) U/L CK-MB (CK-2) TNP CK-MB (CK-2) Rel Index TNP Troponin I < 0.012 (0.01-0.034) ng/mL Total Protein 8.1 (6.3-8.2) g/dL Albumin 4.9 (3.5-5.0) g/dL Globulin 3.2 (1.7-4.1) g/dL Albumin/Globulin Ratio 1.5 (1.0-2.8) Lipase 54 (23-300) U/L ECG Data Interpretation: Normal sinus rhythm rate 59 HI interval 190 QRS [address] changes similar to previous EKG July 17 2021 MDM Narrative Medical decision making narrative: Patient is overall feeling much better. He does have hyperemesis secondary to cannabis use this presents similar to previous episodes. Haldol Protonix Zofran seem to help. Lactate mildly elevated but now tolerating oral fluids. Blood work EKG are overall reassuring. At this time he is requesting tubal home. Discharge Plan Departure Patient Disposition: Home Clinical Impression: Cannabis hyperemesis syndrome concurrent with and due to cannabis dependence Instructions: DI for Vomiting -- Adult Activity Restrictions/Additional Instructions: 1) You have been diagnosed with vomiting secondary to cannabis use 2) What to do: Drink frequent but small amounts of fluids. I recommend Gatorade or a Gatorade-like product, as it has small amounts of sugar and salts that improve fluid retention. 3) Take medications as directed Zofran mg every 8 hours if needed for nausea vomiting Phenergan 25 mg every 6 hours if needed for nausea or vomiting 4) Follow up with your primary care provider in 2-3 days 5) Return to ER if you should have any new or worsening symptoms such as, unable to hold down fluids despite use of anti-nausea medications and the small volume oral rehydration strategy. Prescriptions: New promethazine 25 mg tablet 25 mg PO Q6H PRN (Reason: nausea and vomiting) Qty: 10 0RF No Action ondansetron HCl [Zofran] 8 mg tablet 8 mg PO Q8H PRN (Reason: nausea and vomiting) Qty: 10 0RF haloperidol 2 mg tablet 2 mg PO Q8H PRN (Reason: nausea and vomiting) Qty: 7 0RF aspirin [Adult Low Dose Aspirin] 81 mg Tablet,Delayed Release (Dr/Ec) 81 mg PO DAILY 0RF ondansetron 4 mg tablet,disintegrating 4 mg PO Q8H PRN (Reason: nausea and vomiting) Qty: 10 0RF
[2021-10-16] MEDS: SODIUM CHLORIDE 0.9% 1,000 ML 1000 ML IV (07:27)
[2021-10-16] MEDS: HALOPERIDOL 5 MG/ML VIAL 2 MG IV (07:27)
[2021-10-16] MEDS: PANTOPRAZOLE 40 MG VIAL IV (07:27)
[2021-10-16] MEDS: ONDANSETRON 4 MG/2 ML INJ IV (07:27)
[2021-10-16 07:47] LABS: Add Manual Diff / Slide Review NO; Basophils Absolute Auto 0 /uL (0-100); Basophils Percent Auto 0.4 % (0-2); Eosinophils Absolute Auto 100 /uL (0-450); Eosinophils Percent Auto 0.8 % (2-4); Hematocrit 48.1 % (41-53); Hemoglobin 15.8 g/dL (13.5-17.5); Lactate (Lactic Acid) 2.3 mmol/L (0.7-2.1); Lymphocytes Absolute Auto 1800 /uL (1100-4500); Lymphocytes Percent Auto 20.3 % (25-40); Mean Corpuscular HGB Conc 32.9 % (30-36); Mean Corpuscular Hemoglobin 26.2 PG (26-34); Mean Corpuscular Volume 79.6 fL (80-100); Monocytes Absolute Auto 700 /uL (0-900); Neutrophils Absolute Auto 6100 /uL (1500-7000); Neutrophils Percent Auto 70.5 % (50-75); Platelet Count 187 X10^3/uL (150-400); Red Blood Cell Count 6.04 X10^6/uL (4.5-5.9); Red Cell Distribution Width 14.3 % (11.6-14.8); White Blood Cell Count 8.7 X10^3/uL (4.5-11.0)
[2021-10-16 07:48] LABS: Alanine Aminotransferase 22 IU/L (<50); Albumin 4.9 g/dL (3.5-5.0); Albumin Globulin Ratio 1.5 (1.0-2.8); Alkaline Phosphatase 90 U/L (38-126); Aspartate Aminotransferase 27 IU/L (17-59); BUN Creatinine Ratio 18.1 (6-22); Bilirubin Total 0.7 mg/dL (0.2-1.3); Blood Urea Nitrogen 13 mg/dL (9-20); Calcium 10.2 mg/dL (8.4-10.2); Carbon Dioxide 24 mmol/L (22-32); Chloride 102 mmol/L (98-107); Creatine Kinase 47 U/L (55-170); Estimated Glomerular Filt Rate > 60.0 mL/min (>60); Globulin 3.2 g/dL (1.7-4.1); Glucose 201 mg/dL (80-110); HEMOLYSIS < 15 (0-50); Lipase 54 U/L (23-300); Potassium 3.8 mmol/L (3.4-5.1); Sodium 137 mmol/L (137-145); Total Protein 8.1 g/dL (6.3-8.2)
[2021-10-16 07:59] LABS: Troponin I < 0.012 ng/mL (0.01-0.034)
[2021-10-16 09:06] VITALS: BP 213/94; PULSE 55; RESP 16; O2SAT 99
[2021-10-16 09:29] LABS: Reflexed Lactate in 2 Hours Y
== END 2021-10-16 09:14 | disposition home or self-care (01) ==
PROVIDERS: Emergency Provider Emergency Medicine
DX: R11.2 Nausea with vomiting, unspecified (principal); F12.20 Cannabis dependence, uncomplicated; R03.0 Elevated blood-pressure reading, without diagnosis of hypertension; Z86.79 Personal history of other diseases of the circulatory system
CPT/HCPCS: 36415; 80053; 82550; 83605; 83690; 84484; 85025; 93005; 93010; 96361; 96374; 96375; 99284; C9113; J1630; J2405

== ENCOUNTER 2021-12-04 08:44 | Emergency (ER) | payer MEDICARE, MEDICAID, SELFPAY ==
[2021-12-04] VITALS (13 sets, daily range): BP systolic 165–200; BP diastolic 83–113; PULSE 52–95; RESP 11–19; O2SAT 96–100; BMI 36.0
--- NOTE | 2021-12-04 08:55 | ED.NAVMDI ---
HPI - Nausea/Vomiting/Diarrhea General Chief complaint: Nausea/Vomiting/Diarrhea Stated complaint: throwing up Time Seen by Provider: 12/04/21 08:50 Source: patient, RN notes reviewed and old records reviewed Mode of arrival: Ambulatory Limitations: no limitations History of Present Illness HPI Narrative: This is a 66-year-old male with a history of coronary artery disease, bipolar and hyperemesis cannabis who presents with nausea and vomiting. Patient states this episode started this morning and he has had persistent vomiting for 4 hours. He states this is similar to his prior episodes. No new or atypical characteristics. He denies fevers or chills. He denies chest pain or shortness breath. Denies any new abdominal pain. He states he has had normal bowel movements no diarrhea constipation. He has been passing gas regularly. Denies dysuria urgency or frequency. Patient states he does continue to smoke marijuana regularly and that he is aware that this contributes to his episodes. States he does not have any medications he tries at home to decrease his symptoms. He has not taken his a.m. medications he is unsure if he takes any antihypertensives in the morning. He has not had any new medication changes or surgery since his last visit. Patient denies any other illicit drugs. Occasional alcohol. Related Data Home Medications Medication Instructions Recorded Confirmed aspirin 81 mg tablet,delayed 81 mg PO DAILY 04/12/20 04/12/20 release (Adult Low Dose Aspirin) Previous Rx's Medication Instructions Recorded ondansetron HCl 8 mg tablet 8 mg PO Q8H PRN #10 tab 10/20/19 (Zofran) ondansetron 4 mg disintegrating 4 mg PO Q8H PRN #10 tab 04/12/20 tablet haloperidol 2 mg tablet 2 mg PO Q8H PRN #7 tab 06/05/21 promethazine 25 mg tablet 25 mg PO Q6H PRN #10 tab 10/16/21 Allergies Allergy/AdvReac Type Severity Reaction Status Date / Time No Known Drug Allergies Allergy Verified 04/04/21 19:11 Review of Systems Review of Systems ROS Unobtainable: All systems reviewed & are unremarkable except as noted in HPI and below Patient History Medical History Cannabinoid hyperemesis syndrome Coronary artery disease Diabetes Social History Smoking Status: Never smoker Smoking Status: Never smoker alcohol intake frequency: 0-2 drinks per day Substance Use Type: marijuana Exam Narrative Exam Narrative: GENERAL: Alert and oriented x three, male in mild distress. HEENT: Head normocephalic, atraumatic, EOMI, pupils reactive, face symmetric, moist mucous membranes NECK: Supple, full range of motion CARDIOVASCULAR: Regular rate and rhythm without murmurs, rubs or gallops. RESPIRATORY: Breath sounds equal bilaterally, no wheezes rales or rhonchi. ABDOMEN: Soft, nontender. Nondistended.Normoactive bowel sounds all 4 quadrants. No guarding or rebound, rigidity, no mass. Patient has active emesis with slightly clingy clearish fluid in his emesis bag. : No CVA tenderness EXTREMITIES: Normal range of motion, no clubbing or edema. Neurovascularly intact NEUROLOGICAL: Cranial nerves II through XII grossly intact. Moving all extremities. Normal gait. SKIN: Warm, dry, no petechiae, no rashes or lesions. Initial Vital Signs Initial Vital Signs: Vital Signs Blood Pressure 187/113 H 12/04/21 08:51 Course Orders Ordered: ED Orders 12/04/21 09:30 Complete Blood Count AUTO DIFF Stat Comprehensive Metabolic Panel Stat Lipase Stat Discontinued Medications Haloperidol (Haloperidol 5 Mg/Ml Vial) 5 mg IV NOW ONE Stop: 12/04/21 09:07 Last Admin: 12/04/21 09:50 Dose: 5 mg Documented by: MARY ANN Sodium Chloride (Normal Saline 0.9%) 1,000 mls @ 1,000 mls/hr IV BOLUS ONE Stop: 12/04/21 10:05 Last Infusion: 12/04/21 11:10 Dose: 0 mls/hr Documented by: Admin: 12/04/21 09:41 Dose: 1,000 mls/hr Documented by: MARY ANN Pantoprazole Sodium (Pantoprazole 40 Mg Vial) 40 mg IV NOW ONE Stop: 12/04/21 09:07 Last Admin: 12/04/21 09:50 Dose: 40 mg Documented by: MARY ANN Reevaluation(s) Reevaluation #1: Patient refuses EKG. States it is not his heart. Time: 09:11 Reevaluation #2: Patient had heart rates into the 40s intermittently. Once again with asked to have EKG and he politely refuses. This may be secondary to Haldol will continue to monitor. Would avoid any additional QT prolonging medications at this time. 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 Discussed he has had his heart rate as low as the 50s in the past visits he Haldol intermittently but there is no clear note of major arrhythmias. Also requesting that he feels much better and would like to return home. He defers any prescriptions for medications. All questions answered return precautions discussed. Patient is aware that we have not fully evaluated his heart today. Time: 11:15 Vital Signs Vital signs: Vital Signs - 8 hr 12/04/21 10:30 12/04/21 10:31 12/04/21 11:00 Pulse Rate 73 67 95 H Respiratory Rate 19 16 16 Blood Pressure 192/92 H Pulse Oximetry 99 98 96 12/04/21 11:01 12/04/21 11:16 Pulse Rate 75 80 Respiratory Rate 11 L 14 Blood Pressure 193/106 H 189/90 H Pulse Oximetry 99 100 MDM - Nausea/Vomiting/Diarrhea Lab Data Result diagrams: 12/04/21 09:30 12/04/21 09:30 Labs: Lab Results 12/04/21 12/04/21 Range/Units 09:30 09:30 WBC 9.1 (4.5-11.0) X10^3/uL RBC 6.14 H (4.5-5.9) X10^6/uL Hgb 16.2 (13.5-17.5) g/dL Hct 48.3 (41-53) % MCV 78.7 L (80-100) fL MCH 26.3 (26-34) PG MCHC 33.4 (30-36) % RDW 14.3 (11.6-14.8) % Plt Count 173 (150-400) X10^3/uL Neut % (Auto) 75.0 (50-75) % Lymph % (Auto) 16.4 L (25-40) % [place] % (Auto) 7.7 (3-14) % Eos % (Auto) 0.3 L (2-4) % Baso % (Auto) 0.6 (0-2) % Neut # (Auto) 6800 (6947-0596) /uL Lymph # (Auto) 1500 (4995-2796) /uL [place] # (Auto) 700 (0-900) /uL Eos # (Auto) 0 (0-450) /uL Baso # (Auto) 100 (0-100) /uL Sodium 140 (137-145) mmol/L Potassium 3.5 (3.4-5.1) mmol/L Chloride 103 (98-107) mmol/L Carbon Dioxide 24 (22-32) mmol/L BUN 19 (9-20) mg/dL Creatinine 0.74 (0.66-1.25) mg/dL Estimated GFR > 60.0 (>60) mL/min BUN/Creatinine Ratio 25.7 H (6-22) Glucose 180 H (80-110) mg/dL Calcium 10.2 (8.4-10.2) mg/dL Total Bilirubin 0.8 (0.2-1.3) mg/dL AST 31 (17-59) IU/L ALT 25 (<50) IU/L Alkaline Phosphatase 76 (38-126) U/L Total Protein 8.8 H (6.3-8.2) g/dL Albumin 5.1 H (3.5-5.0) g/dL Globulin 3.7 (1.7-4.1) g/dL Albumin/Globulin Ratio 1.4 (1.0-2.8) Lipase 40 (23-300) U/L Point of Care Testing Glucose POC 162 MDM Narrative Medical decision making narrative: This is a 66-year-old male with known hyperemesis cannabis who continues to use cannabis regularly. Patient states he knows this causes his symptoms. Patient's states symptoms are very similar to his past episodes. He has responded well to Haldol in the past and was given a dose with Protonix and fluids here in the department. Patient was noted to have slowing of his heart rate from a 70 sometimes into 40s, on review of prior visits he has been as low as 50. He does appear to have frequent PVCs but has slightly refused EKG initially upon arrival and again when he is having change in his rate. Patient is aware of my concerns about his heart he states he has follow-up with Cardiology. His electrolytes, renal function and labs are otherwise stable with no acute changes. His glucose is 180. Patient is requesting to return home that he feels much better at this time. Discharge Plan Departure Patient Disposition: Home Clinical Impression: Cannabis hyperemesis syndrome concurrent with and due to cannabis abuse Instructions: DI for Cannabinoid Hyperemesis Syndrome Activity Restrictions/Additional Instructions: Your symptoms today are likely secondary to cannabis ingestion and will continue if you continued to ingest cannabis. It was noted that your heart rate was intermittently low, because you have elected not to have any EKG today we were unable to evaluate for any cardiac issues today. Please return if you have fevers, persistent vomiting, new chest pain or shortness of breath, lightheadedness or passing out, persistent vomiting, black or bloody stools or other new or concerning symptoms. Prescriptions: No Action ondansetron HCl [Zofran] 8 mg tablet 8 mg PO Q8H PRN (Reason: nausea and vomiting) Qty: 10 0RF haloperidol 2 mg tablet 2 mg PO Q8H PRN (Reason: nausea and vomiting) Qty: 7 0RF aspirin [Adult Low Dose Aspirin] 81 mg Tablet,Delayed Release (Dr/Ec) 81 mg PO DAILY 0RF ondansetron 4 mg tablet,disintegrating 4 mg PO Q8H PRN (Reason: nausea and vomiting) Qty: 10 0RF promethazine 25 mg tablet 25 mg PO Q6H PRN (Reason: nausea and vomiting) Qty: 10 0RF
[2021-12-04] MEDS: SODIUM CHLORIDE 0.9% 1,000 ML 1000 ML IV (09:41)
[2021-12-04] MEDS: HALOPERIDOL 5 MG/ML VIAL IV (09:50)
[2021-12-04] MEDS: PANTOPRAZOLE 40 MG VIAL IV (09:50)
[2021-12-04 10:00] LABS: Add Manual Diff / Slide Review NO; Basophils Absolute Auto 100 /uL (0-100); Basophils Percent Auto 0.6 % (0-2); Eosinophils Absolute Auto 0 /uL (0-450); Eosinophils Percent Auto 0.3 % (2-4); Hematocrit 48.3 % (41-53); Hemoglobin 16.2 g/dL (13.5-17.5); Lymphocytes Absolute Auto 1500 /uL (1100-4500); Lymphocytes Percent Auto 16.4 % (25-40); Mean Corpuscular HGB Conc 33.4 % (30-36); Mean Corpuscular Hemoglobin 26.3 PG (26-34); Mean Corpuscular Volume 78.7 fL (80-100); Monocytes Absolute Auto 700 /uL (0-900); Monocytes Percent Auto 7.7 % (3-14); Neutrophils Absolute Auto 6800 /uL (1500-7000); Platelet Count 173 X10^3/uL (150-400); Red Blood Cell Count 6.14 X10^6/uL (4.5-5.9); Red Cell Distribution Width 14.3 % (11.6-14.8); White Blood Cell Count 9.1 X10^3/uL (4.5-11.0)
[2021-12-04 10:11] LABS: Alanine Aminotransferase 25 IU/L (<50); Albumin 5.1 g/dL (3.5-5.0); Albumin Globulin Ratio 1.4 (1.0-2.8); Alkaline Phosphatase 76 U/L (38-126); Aspartate Aminotransferase 31 IU/L (17-59); BUN Creatinine Ratio 25.7 (6-22); Bilirubin Total 0.8 mg/dL (0.2-1.3); Blood Urea Nitrogen 19 mg/dL (9-20); Calcium 10.2 mg/dL (8.4-10.2); Carbon Dioxide 24 mmol/L (22-32); Chloride 103 mmol/L (98-107); Estimated Glomerular Filt Rate > 60.0 mL/min (>60); Globulin 3.7 g/dL (1.7-4.1); Glucose 180 mg/dL (80-110); HEMOLYSIS 24 (0-50); Lipase 40 U/L (23-300); Potassium 3.5 mmol/L (3.4-5.1); Sodium 140 mmol/L (137-145); Total Protein 8.8 g/dL (6.3-8.2)
--- NOTE | 2021-12-04 10:42 | PC.NURSE ---
pt refused EKG, states he knows it isn't his heart that is causing this. okay with being on 5 lead
--- NOTE | 2021-12-04 10:43 | PC.NURSE ---
Patient refused initial EKG upon completion of triage. Patient vitals showed that his heart rate had been fluctuating since arrival. Approached patient again requesting to perform an EKG test due to changes in his heart rate. Patient continues to refuse to have EKG performed.
== END 2021-12-04 11:21 | disposition home or self-care (01) ==
PROVIDERS: Emergency Provider Emergency Medicine
DX: R11.2 Nausea with vomiting, unspecified (principal); F12.10 Cannabis abuse, uncomplicated
CPT/HCPCS: 36415; 80053; 83690; 85025; 96361; 96374; 96375; 99284; C9113; J1630

== ENCOUNTER 2022-02-12 03:41 | Emergency (ER) | payer MEDICARE, MEDICAID, SELFPAY ==
--- NOTE | 2022-02-12 03:46 | ED_ITS ---
HPI - General Adult General Chief complaint: Nausea/Vomiting/Diarrhea Stated complaint: vomiting x5 hours Time Seen by Provider: 02/12/22 03:46 History of Present Illness HPI narrative: 66-year-old gentleman with history of coronary artery disease, bipolar disorder and presumed can adenoid hyperemesis syndrome with multiple prior presentations with cyclic vomiting. He states that he has been vomiting for the last 5 hours and can stop it has not smoked any marijuana for the past 24 hours. He is profusely diaphoretic but denies fevers, cough, chills, chest pain, palpitations. He complains of abdominal pain simply from the active vomiting has not had any diarrhea. States he has not taken any of his medications this morning and isn't sure what they are just that ?there are a lot?. Related Data Home Medications Medication Instructions Recorded Confirmed aspirin 81 mg tablet,delayed 81 mg PO DAILY 04/12/20 04/12/20 release (Adult Low Dose Aspirin) Previous Rx's Medication Instructions Recorded ondansetron HCl 8 mg tablet 8 mg PO Q8H PRN nausea and 10/20/19 (Zofran) vomiting #10 tabs ondansetron 4 mg disintegrating 4 mg PO Q8H PRN nausea and 04/12/20 tablet vomiting #10 tabs haloperidol 2 mg tablet 2 mg PO Q8H PRN nausea and 06/05/21 vomiting #7 tabs promethazine 25 mg tablet 25 mg PO Q6H PRN nausea and 10/16/21 vomiting #10 tabs haloperidol 2 mg tablet 2 mg PO TID PRN nausea and 02/12/22 vomiting #14 tabs Allergies Allergy/AdvReac Type Severity Reaction Status Date / Time No Known Drug Allergies Allergy Verified 04/04/21 19:11 Review of Systems Review of Systems ROS Unobtainable: Unobtainable due to medical condition Patient History Medical History (Updated 02/12/22 @ 05:41 by Dhara Mcnally MD) Cannabinoid hyperemesis syndrome Coronary artery disease Diabetes Hyperlipidemia Hypertension Surgical History (Updated 02/12/22 @ 04:13 by Dhara Mcnally MD) History of coronary artery bypass graft Status post cholecystectomy Social History Smoking Status: Never smoker Smoking Status: Never smoker alcohol intake frequency: 0-2 drinks per day Substance Use Type: marijuana Exam Initial Vital Signs Initial Vital Signs: Vital Signs Temperature 96.3 F L 02/12/22 03:48 Pulse Rate 76 02/12/22 03:48 Respiratory Rate 18 02/12/22 03:48 Blood Pressure 180/115 H 02/12/22 03:48 Pulse Oximetry 100 02/12/22 03:48 Oxygen Delivery Method 02/12/22 03:48 General: Acutely ill-appearing, retching profusely, diaphoretic. HEENT: Moist mucous membranes, normal sclera with reactive pupils, lip and tongue smacking behaviors suggesting tardive dyskinesia Neck: supple Respiratory: Lungs are clear to auscultation, no wheezing no rales no rhonchi. Full and symmetrical air movement Cardiac: Tachycardic with regular rhythm no murmurs no bruits Abdomen: Soft, nontender, good bowel tones, no flank pain Skin: [place] and diaphoretic, no rashes Neurologic: Grossly neurologically intact with no obvious asymmetries or abnormalities Extremities: No trauma, well perfused Psych: Cooperative, appropriate insight and affect Course Course Course Narrative: Most recent med list suggests aspirin 81 mg daily, atenolol 50 mg daily, atorvastatin 40 mg daily, clopidogrel 75 mg daily, cyclobenzaprine 10 mg 3 times daily as needed, diclofenac 75 mg enteric-coated b.i.d., docusate daily omeprazole 40 mg daily Flonase nasal spray daily, gabapentin 100 mg daily, glipizide 5 mg as needed HS, 40 units of Lantus daily , Jardiance 25 mg daily, losartan 25 mg daily, metformin a 1000 mg with breakfast, metoclopramide 5 mg every 8 hours, metoprolol succinate 50 mg every day, ondansetron 4 mg as needed, tramadol 50 mg b.i.d., trazodone 50 mg at night, Trulicity 3 mg subcutaneous weekly Orders Ordered: ED Orders 02/12/22 03:57 Complete Blood Count AUTO DIFF Stat Comprehensive Metabolic Panel Stat Lipase Stat Magnesium Stat Troponin I Stat EKG-12 Lead Stat Discontinued Medications Diphenhydramine HCl (Diphenhydramine 50 Mg/Ml Vial) 50 mg IV NOW ONE Stop: 02/12/22 03:58 Last Admin: 02/12/22 04:17 Dose: 50 mg Haloperidol (Haloperidol 5 Mg/Ml Vial) 2 mg IV NOW ONE Stop: 02/12/22 03:58 Last Admin: 02/12/22 04:16 Dose: 2 mg Sodium Chloride (Normal Saline 0.9%) 1,000 mls @ 1,000 mls/hr IV BOLUS ONE Stop: 02/12/22 04:56 Last Infusion: 02/12/22 05:21 Dose: Infused Losartan Potassium (Losartan 50 Mg Tablet) 50 mg PO NOW ONE Stop: 02/12/22 05:33 Metoprolol Succinate (Metoprolol Er 50 Mg Tablet) 50 mg PO NOW ONE Stop: 02/12/22 05:33 Vital Signs Vital signs: Vital Signs - 8 hr 02/12/22 03:48 02/12/22 04:42 02/12/22 04:44 Temperature 96.3 F L Pulse Rate 76 81 91 H Respiratory Rate 18 22 23 Blood Pressure 180/115 H Pulse Oximetry 100 99 98 Oxygen Delivery Method Room Air 02/12/22 04:44 Temperature Pulse Rate Respiratory Rate Blood Pressure 198/94 H Pulse Oximetry Oxygen Delivery Method Medical Decision Making Lab Data Result diagrams: 02/12/22 03:55 02/12/22 03:55 Labs: Lab Results 02/12/22 02/12/22 Range/Units 03:55 03:55 WBC 6.8 (4.5-11.0) X10^3/uL RBC 5.80 (4.5-5.9) X10^6/uL Hgb 15.3 (13.5-17.5) g/dL Hct 45.9 (41-53) % MCV 79.0 L (80-100) fL MCH 26.4 (26-34) PG MCHC 33.4 (30-36) % RDW 15.0 H (11.6-14.8) % Plt Count 165 (150-400) X10^3/uL Neut % (Auto) 47.4 L (50-75) % Lymph % (Auto) 37.3 (25-40) % [place] % (Auto) 12.1 (3-14) % Eos % (Auto) 2.5 (2-4) % Baso % (Auto) 0.7 (0-2) % Neut # (Auto) 3200 (9885-6175) /uL Lymph # (Auto) 2500 (7203-6089) /uL [place] # (Auto) 800 (0-900) /uL Eos # (Auto) 200 (0-450) /uL Baso # (Auto) 0 (0-100) /uL Sodium 137 (137-145) mmol/L Potassium 4.0 (3.4-5.1) mmol/L Chloride 103 (98-107) mmol/L Carbon Dioxide 23 (22-32) mmol/L BUN 12 (9-20) mg/dL Creatinine 0.70 (0.66-1.25) mg/dL Estimated GFR > 60 (>60) mL/min BUN/Creatinine Ratio 17.1 (6-22) Glucose 244 H (80-110) mg/dL Calcium 9.7 (8.4-10.2) mg/dL Magnesium 1.8 (1.6-2.3) mg/dL Total Bilirubin 0.7 (0.2-1.3) mg/dL AST 26 (17-59) IU/L ALT 20 (<50) IU/L Alkaline Phosphatase 74 (38-126) U/L Troponin I < 0.012 (0.01-0.034) ng/mL Total Protein 7.7 (6.3-8.2) g/dL Albumin 4.5 (3.5-5.0) g/dL Globulin 3.2 (1.7-4.1) g/dL Albumin/Globulin Ratio 1.4 (1.0-2.8) Lipase 52 (23-300) U/L ECG Data Interpretation: Sinus rhythm at a rate of 67 Normal intervals, normal axis No acute ischemic changes MDM Narrative Medical decision making narrative: 66-year-old gentleman who presents with severe vomiting for the last 7 hours notes that it is occasionally related to his marijuana use last marijuana use was yesterday. He states that does not happen every time and occasionally the marijuana use does help with both his chronic pain and headaches. He is aware of the direct correlation. Will give him a small prescription of Haldol 2 mg tablets to have at home as this seems to be the most effective anti medic. Cautioned him that it should not be used in conjunction with metoclopramide or from with sizing. Encouraged him to consider stopping smoking marijuana altogether and follow-up with his primary care physician. At this point there is no evidence of acute kidney injury, electrolyte abnormalities, bacterial infections, acute coronary syndrome, bowel obstruction or alternative explanation that required additional workup or hospitalization. He is feeling significantly better and tolerating oral intake. He is given his morning dose of losartan and metoprolol as he missed doses yesterday and his blood pressures are relatively elevated this morning. He is safe for home discharge Discharge Plan Departure Patient Disposition: Home Clinical Impression: Cannabinoid hyperemesis syndrome, Hypertension Instructions: DI for Cannabinoid Hyperemesis Syndrome Activity Restrictions/Additional Instructions: Thank you for coming in today Does seem that your vomiting today is related to your marijuana use.? It is interesting that it does not happen all the time.? You improved nicely with low- dose Haldol and fluids and IV Benadryl.? There is no evidence of acute bacterial infection or heart attack or heart attack like syndrome.I did not find any evidence of acute infection, bowel obstruction, dramatic electrolyte abnormalities, low potassium, or acute coronary syndrome/heart attack. I have given you a prescription for Haldol, 2 mg to use as a nausea medication at the onset of severe nausea episodes.? This should not be mixed with metoclopramide or with promethazine.? It is okay to mix any of those 3 anti nausea medications with Benadryl to help with side effects and also make the anti nausea FX even more potent. The best option for avoiding these recurrent episodes is, of course, stopping smoking weed. If you find that you are getting worse or develop any new symptoms, please feel free to return to the emergency department for further evaluation. Prescriptions: New haloperidol 2 mg tablet 2 mg PO TID PRN (Reason: nausea and vomiting) Qty: 14 0RF Rx Instructions: do not take with metoclopramide or promethazine No Action ondansetron HCl [Zofran] 8 mg tablet 8 mg PO Q8H PRN (Reason: nausea and vomiting) Qty: 10 0RF haloperidol 2 mg tablet 2 mg PO Q8H PRN (Reason: nausea and vomiting) Qty: 7 0RF aspirin [Adult Low Dose Aspirin] 81 mg Tablet,Delayed Release (Dr/Ec) 81 mg PO DAILY ondansetron 4 mg tablet,disintegrating 4 mg PO Q8H PRN (Reason: nausea and vomiting) Qty: 10 0RF promethazine 25 mg tablet 25 mg PO Q6H PRN (Reason: nausea and vomiting) Qty: 10 0RF
[2022-02-12 03:48] VITALS: BP 180/115; PULSE 76; RESP 18; TEMP 35.7; O2SAT 100
[2022-02-12 04:09] LABS: Add Manual Diff / Slide Review NO; Basophils Absolute Auto 0 /uL (0-100); Basophils Percent Auto 0.7 % (0-2); Eosinophils Absolute Auto 200 /uL (0-450); Eosinophils Percent Auto 2.5 % (2-4); Hematocrit 45.9 % (41-53); Hemoglobin 15.3 g/dL (13.5-17.5); Lymphocytes Absolute Auto 2500 /uL (1100-4500); Lymphocytes Percent Auto 37.3 % (25-40); Mean Corpuscular HGB Conc 33.4 % (30-36); Mean Corpuscular Hemoglobin 26.4 PG (26-34); Monocytes Absolute Auto 800 /uL (0-900); Monocytes Percent Auto 12.1 % (3-14); Neutrophils Absolute Auto 3200 /uL (1500-7000); Neutrophils Percent Auto 47.4 % (50-75); Platelet Count 165 X10^3/uL (150-400); White Blood Cell Count 6.8 X10^3/uL (4.5-11.0)
[2022-02-12 04:11] LABS: Alanine Aminotransferase 20 IU/L (<50); Albumin 4.5 g/dL (3.5-5.0); Albumin Globulin Ratio 1.4 (1.0-2.8); Alkaline Phosphatase 74 U/L (38-126); Aspartate Aminotransferase 26 IU/L (17-59); BUN Creatinine Ratio 17.1 (6-22); Bilirubin Total 0.7 mg/dL (0.2-1.3); Blood Urea Nitrogen 12 mg/dL (9-20); Calcium 9.7 mg/dL (8.4-10.2); Carbon Dioxide 23 mmol/L (22-32); Chloride 103 mmol/L (98-107); Estimated Glomerular Filt Rate > 60 mL/min (>60); Globulin 3.2 g/dL (1.7-4.1); Glucose 244 mg/dL (80-110); HEMOLYSIS 19 (0-50); Lipase 52 U/L (23-300); Magnesium 1.8 mg/dL (1.6-2.3); Sodium 137 mmol/L (137-145); Total Protein 7.7 g/dL (6.3-8.2)
[2022-02-12] MEDS: HALOPERIDOL 5 MG/ML VIAL 2 MG IV (04:16)
[2022-02-12] MEDS: SODIUM CHLORIDE 0.9% 1,000 ML 1000 ML IV (04:16)
[2022-02-12] MEDS: diphenhydrAMINE 50 MG/ML VIAL IV (04:17)
[2022-02-12 04:22] LABS: Troponin I < 0.012 ng/mL (0.01-0.034)
[2022-02-12 04:42] VITALS: PULSE 81; RESP 22; O2SAT 99
[2022-02-12 04:44] VITALS: BP 198/94; PULSE 91; RESP 23; O2SAT 98
[2022-02-12] MEDS: METOPROLOL ER 50 MG TABLET PO (05:51)
[2022-02-12] MEDS: LOSARTAN 50 MG TABLET PO (05:51)
[2022-02-12 05:53] VITALS: BP 189/90; PULSE 88; RESP 18; TEMP 36.6; O2SAT 98
== END 2022-02-12 05:55 | disposition home or self-care (01) ==
PROVIDERS: Emergency Provider Emergency Medicine
DX: R11.2 Nausea with vomiting, unspecified (principal); I10 Essential (primary) hypertension; F12.90 Cannabis use, unspecified, uncomplicated
CPT/HCPCS: 80053; 83690; 83735; 84484; 85025; 93005; 93010; 96361; 96374; 96375; 99284; J1200; J1630

== ENCOUNTER 2024-08-22 03:23 | Emergency (ER) | payer MEDICARE, MEDICAID, SELFPAY ==
[2024-08-22 03:28] VITALS: PULSE 104; O2SAT 98
[2024-08-22 03:29] VITALS: BP 137/102; PULSE 99; O2SAT 98
[2024-08-22 03:30] VITALS: BP 185/97; PULSE 97; O2SAT 98
[2024-08-22 03:32] VITALS: BP 137/102; PULSE 99; RESP 18; TEMP 36.5; O2SAT 99; BMI 34.2
--- NOTE | 2024-08-22 03:32 | ED_ITS ---
HPI - Nausea/Vomiting/Diarrhea General Chief complaint: Nausea/Vomiting/Diarrhea Stated complaint: n/v can't eat Time Seen by Provider: 08/22/24 03:25 History of Present Illness HPI Narrative: 68-year-old male with history of hau-xloyscs-ongmoessu diabetes, coronary artery disease status post CABG, marijuana use presents by private vehicle from home for 2 days of nausea, vomiting, inability to eat or drink anything by mouth. Patient states that any time he tries to eat or drink anything he vomits. Last vomited approximately 30 minutes prior to arrival. Last marijuana use 3 days ago. Patient does state that 1 of his medication doses was increased recently, however he was not know the name of this medication and we can not find this information in our system. Related Data Home Medications Medication Instructions Recorded Confirmed Unobtainable 08/22/24 08/22/24 Allergies Allergy/AdvReac Type Severity Reaction Status Date / Time No Known Drug Allergies Allergy Verified 04/04/21 19:11 Patient History Medical History Hyperlipidemia Hypertension Diabetes Coronary artery disease Cannabinoid hyperemesis syndrome Surgical History History of coronary artery bypass graft Status post cholecystectomy Social History Smoking Status: Never smoker Smoking Status: Never smoker alcohol intake frequency: 0-2 drinks per day Exam Initial Vital Signs Initial Vital Signs: Vital Signs Pulse Rate 104 H 08/22/24 03:28 Pulse Oximetry 98 08/22/24 03:28 Const: Awake, alert, appears chronically unwell Mouth: edentulous, mildly dry mucous membranes Cardiac: regular rate, regular rhythm RESP: unlabored, clear bilaterally, no wheezing GI: Soft, nontender, nondistended Skin: Warm, Dry, intact, no rashes Neuro: AO x3, CN II-XII grossly intact, moves all extremities Course Orders Ordered: ED Orders 08/22/24 03:33 EKG-12 Lead Stat 08/22/24 03:45 CBC Auto Diff [Complete Blood Count AUTO DIFF] Stat CMP [Comprehensive Metabolic Panel] Stat Lipase Stat Discontinued Medications Haloperidol (Haloperidol 5 Mg/Ml Vial) 3 mg IV NOW ONE Stop: 08/22/24 04:00 Last Admin: 08/22/24 04:06 Dose: 3 mg Documented By: BREANA Sodium Chloride (Normal Saline 0.9%) 1,000 mls @ 1,000 mls/hr IV BOLUS ONE Stop: 08/22/24 04:31 Last Infusion: 08/22/24 04:47 Dose: Infused Documented By: Admin: 08/22/24 03:52 Dose: 1,000 mls/hr Documented By: BREANA Vital Signs Vital signs: Vital Signs - 8 hr 08/22/24 03:28 08/22/24 03:29 08/22/24 03:29 Temperature Pulse Rate 104 H 99 H Respiratory Rate Blood Pressure 137/102 H Pulse Oximetry 98 98 Oxygen Delivery Method 08/22/24 03:30 08/22/24 03:30 08/22/24 03:32 Temperature 97.7 F Pulse Rate 97 H 99 H Respiratory Rate 18 Blood Pressure 185/97 H 137/102 H Pulse Oximetry 98 99 Oxygen Delivery Method Room Air Room Air 08/22/24 05:07 08/22/24 05:08 08/22/24 05:08 Temperature Pulse Rate 86 82 Respiratory Rate Blood Pressure 150/80 H Pulse Oximetry 96 100 Oxygen Delivery Method Room Air MDM - Nausea/Vomiting/Diarrhea Lab Data 08/22/24 03:45 08/22/24 03:45 Labs: Lab Results 08/22/24 Range/Units 03:45 WBC 11.2 H (4.5-11.0) X10^3/uL RBC 6.52 H (4.5-5.9) X10^6/uL Hgb 16.8 (13.5-17.5) g/dL Hct 50.6 (41-53) % MCV 77.6 L (80-100) fL MCH 25.7 L (26-34) PG MCHC 33.2 (30-36) % RDW 15.6 H (11.6-14.8) % Plt Count 212 (150-400) X10^3/uL Neut % (Auto) 68.9 (50-75) % Lymph % (Auto) 18.8 L (25-40) % [place] % (Auto) 11.8 (3-14) % Eos % (Auto) 0.1 L (2-4) % Baso % (Auto) 0.4 (0-2) % Neut # (Auto) 7700 H (7575-1137) /uL Lymph # (Auto) 2100 (1124-1578) /uL [place] # (Auto) 1300 H (0-900) /uL Eos # (Auto) 0 (0-450) /uL Baso # (Auto) 0 (0-100) /uL Sodium 132 L (137-145) mmol/L Potassium 4.3 (3.4-5.1) mmol/L Chloride 96 L (98-107) mmol/L Carbon Dioxide 20 L (22-32) mmol/L BUN 21 H (9-20) mg/dL Creatinine 0.88 (0.66-1.25) mg/dL Estimated GFR > 60 (>60) mL/min BUN/Creatinine Ratio 23.9 H (6-22) Glucose 203 H (80-110) mg/dL Calcium 10.6 H (8.4-10.2) mg/dL Total Bilirubin 1.4 H (0.2-1.3) mg/dL AST 47 (17-59) IU/L ALT 29 (<50) IU/L Alkaline Phosphatase 68 (38-126) U/L Total Protein 8.9 H (6.3-8.2) g/dL Albumin 5.1 H (3.5-5.0) g/dL Globulin 3.8 (1.7-4.1) g/dL Albumin/Globulin Ratio 1.3 (1.0-2.8) Lipase 30 (23-300) U/L MDM Narrative Medical decision making narrative: Nausea, vomiting x3 days. Extensive hx of cannabinoid hyperemesis syndrome, however has not been at [facility] in nearly 2 years. Abdomen soft, but patient appears possibly jaundiced. Patient denies unintentional weight loss. Recommended CT to patient, hwoever he states that he has had lots and lots of scans in the past and nothing has ever been found. No CT reports in our system. Patient adamantly declines CT due to multiple outside negative CTs. Labs reviewed, mildy hyponatremic, hypochloremic. This would be expected with acute vomiting. T bili 1.4, otherwise normal liver enzymes. Mild elevation in calcium. After administration of Haldol patient tolerated p.o. without difficulty. He states that he was ready to go home. I offered to prescribe antiemetics, however patient declined. He stated that he would reach out to his doctor today about his medication change and if this could be related to his vomiting. ED return precautions discussed. Discharge Plan Departure Patient Disposition: Home Clinical Impression: Nausea, Vomiting, and Diarrhea Instructions: DI for Vomiting -- Adult Activity Restrictions/Additional Instructions: Follow up with your doctor about your medication changes. Prescriptions: No Action Unobtainable Stand Alone Forms: Patient Portal/API/Survey
--- NOTE | 2024-08-22 03:33 | EKG_ITS ---
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
--- NOTE | 2024-08-22 03:49 | PC.NURSE ---
Pt declines CT scan, states, I've had a hundred of them, they never show anything. Dr House notified.
[2024-08-22] MEDS: SODIUM CHLORIDE 0.9% 1,000 ML 1000 ML IV (03:52)
--- NOTE | 2024-08-22 03:52 | EKG_ITS ---
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
[2024-08-22 03:55] LABS: Add Manual Diff / Slide Review NO; Basophils Absolute Auto 0 /uL (0-100); Basophils Percent Auto 0.4 % (0-2); Eosinophils Absolute Auto 0 /uL (0-450); Eosinophils Percent Auto 0.1 % (2-4); Hematocrit 50.6 % (41-53); Hemoglobin 16.8 g/dL (13.5-17.5); Lymphocytes Absolute Auto 2100 /uL (1100-4500); Lymphocytes Percent Auto 18.8 % (25-40); Mean Corpuscular HGB Conc 33.2 % (30-36); Mean Corpuscular Hemoglobin 25.7 PG (26-34); Mean Corpuscular Volume 77.6 fL (80-100); Monocytes Absolute Auto 1300 /uL (0-900); Monocytes Percent Auto 11.8 % (3-14); Neutrophils Absolute Auto 7700 /uL (1500-7000); Neutrophils Percent Auto 68.9 % (50-75); Platelet Count 212 X10^3/uL (150-400); Red Blood Cell Count 6.52 X10^6/uL (4.5-5.9); Red Cell Distribution Width 15.6 % (11.6-14.8); White Blood Cell Count 11.2 X10^3/uL (4.5-11.0)
[2024-08-22 04:04] LABS: Alanine Aminotransferase 29 IU/L (<50); Albumin 5.1 g/dL (3.5-5.0); Albumin Globulin Ratio 1.3 (1.0-2.8); BUN Creatinine Ratio 23.9 (6-22); Bilirubin Total 1.4 mg/dL (0.2-1.3); Blood Urea Nitrogen 21 mg/dL (9-20); Calcium 10.6 mg/dL (8.4-10.2); Carbon Dioxide 20 mmol/L (22-32); Chloride 96 mmol/L (98-107); Estimated Glomerular Filt Rate > 60 mL/min (>60); Globulin 3.8 g/dL (1.7-4.1); Glucose 203 mg/dL (80-110); Lipase 30 U/L (23-300); Sodium 132 mmol/L (137-145); Total Protein 8.9 g/dL (6.3-8.2)
[2024-08-22] MEDS: HALOPERIDOL 5 MG/ML VIAL 3 MG IV (04:06)
[2024-08-22 04:08] LABS: Aspartate Aminotransferase 47 IU/L (17-59); HEMOLYSIS 73 (0-50); Potassium 4.3 mmol/L (3.4-5.1)
[2024-08-22 04:09] LABS: Alkaline Phosphatase 68 U/L (38-126)
--- NOTE | 2024-08-22 04:23 | PC.NURSE ---
Pt refused CT scan
[2024-08-22 05:07] VITALS: PULSE 86; O2SAT 96
[2024-08-22 05:08] VITALS: BP 150/80; PULSE 82; O2SAT 100
--- NOTE | 2024-08-22 05:23 | PC.NURSE ---
Pt resting with eyes closed. Has tolerated PO fluids.
== END 2024-08-22 05:36 | disposition home or self-care (01) ==
PROVIDERS: Emergency Provider Emergency Medicine
DX: R11.2 Nausea with vomiting, unspecified (principal); R19.7 Diarrhea, unspecified
CPT/HCPCS: 36415; 80053; 83690; 85025; 93005; 96361; 96374; 99284; J1630

== ENCOUNTER 2024-12-23 07:09 | Emergency (ER) | payer MEDICARE, MEDICAID, SELFPAY ==
[2024-12-23 07:17] VITALS: BP 178/89; PULSE 94; RESP 19; TEMP 36.6; O2SAT 100; BMI 33.6
--- NOTE | 2024-12-23 07:25 | ED.LOWEXIN ---
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 Patient states he was getting and a hot tub slipped fell and thinks that he was struck his pinky toe. He states a lot of other things hurts we did not really notice it but noticed bruising in the next day. Bruising has been persistent but he was noticed a little bit of skin change and redness as well. He states it is still little bit painful. He was able to ambulate on it. The color changes have remained localized to the toe without spread. He was not for sure he injured it at that time and states he does often hit it on the frame of his door to his car as well. He denies fevers or chills. He states he wrapped it with Neosporin and a bandage that is seem to make it look a little worse. It has not had regular drainage or foul odor. He notes he may have little bit of mild neuropathy. He has not had infections in that toe in his feet in the past. He denies any allergies to drugs. Dr. Reyes is his primary care physician. Related Data Previous Rx's Medication Instructions Recorded doxycycline hyclate 100 mg tablet 100 mg PO BID #20 tabs 12/23/24 hydrocodone 5 mg-acetaminophen 325 1 tab PO Q6H PRN pain #5 tabs 12/23/24 mg tablet Allergies Allergy/AdvReac Type Severity Reaction Status Date / Time No Known Drug Allergies Allergy Verified 12/23/24 07:17 Review of Systems Review of Systems ROS Unobtainable: All systems reviewed & are unremarkable except as noted in HPI and below Patient History Medical History Hyperlipidemia Hypertension Diabetes Coronary artery disease Cannabinoid hyperemesis syndrome Surgical History History of coronary artery bypass graft Status post cholecystectomy Social History Smoking Status: Never smoker Smoking Status: Never smoker alcohol intake frequency: 0-2 drinks per day Exam Narrative Exam Narrative: GENERAL: Alert and oriented x three, well-appearing male mild distress HEENT: Head normocephalic, atraumatic, EOMI, pupils reactive, face symmetric, moist mucous membranes NECK: Supple, full range of motion CARDIOVASCULAR: Regular rate and rhythm without murmurs, rubs or gallops. RESPIRATORY: Breath sounds equal bilaterally, no wheezes rales or rhonchi. ABDOMEN: Soft, nontender. Normoactive bowel sounds all 4 quadrants. No guarding or rebound, rigidity, no mass : No CVA tenderness EXTREMITIES: Normal range of motion, no clubbing or edema. Neurovascularly intact. Patient's 5th digit on his right foot is ecchymotic, there is a amount of very superficial skin breakdown on the medial side of the toe. There was no open wound. Appears to be a slight amount of redness adjacent but a bit difficult to tell if it is appears quite bruise. Cap refills less than 2 seconds. The toe is tender to touch. No obvious deformity. Nail is intact. No other bony tenderness throughout the foot. Ecchymosis stops at the edge of the foot without extension elsewhere. Patient has 2+ dorsalis pedis pulse. NEUROLOGICAL: Cranial nerves II through XII grossly intact. Moving all extremities SKIN: Warm, dry, no petechiae, no rashes or lesions noted other than above. Initial Vital Signs Initial Vital Signs: Vital Signs Temperature 97.8 F 12/23/24 07:17 Pulse Rate 94 H 12/23/24 07:17 Respiratory Rate 19 12/23/24 07:17 Blood Pressure 178/89 H 12/23/24 07:17 Pulse Oximetry 100 12/23/24 07:17 Oxygen Delivery Method Room Air 12/23/24 07:17 Course Orders Ordered: ED Orders 12/23/24 07:33 XR toe RT min 2V Stat Vital Signs Vital signs: Vital Signs - 8 hr 12/23/24 07:17 Temperature 97.8 F Pulse Rate 94 H Respiratory Rate 19 Blood Pressure 178/89 H Pulse Oximetry 100 Oxygen Delivery Method Room Air MDM - Extremity Injury (Lower) MDM Narrative Medical decision making narrative: 69-year-old male with likely traumatic injury to his 5th toe but states it has not improved over time. Small amount abrasion patient did not appreciate any lacerations or cuts initially but does have concern for potential infection in the toe as well. X-ray she was questionable subtle avulsion off the medial base of the middle phalanx the small toe. No suspicious bony lesions no suspicious to be soft tissue densities. We will cover with oral antibiotic. Follow up for recheck. Discharge Plan Departure Patient Disposition: Home Clinical Impression: Closed fracture of fifth toe of left foot Instructions: DI for Toe Fracture Activity Restrictions/Additional Instructions: Follow up with your physician for recheck. Please call for an appointment. Your imaging does show appears to be an avulsion fracture of the small toe. Keep a close eye on your toe make sure you do not develop any increasing redness or swelling or any new drainage. Keep the area clean dry and intact do not soak it for prolonged periods of time but do wash and pat dry daily. Take oral antibiotics until completed. Sent to [facility] in [place]. Please return for fevers, new redness, swelling or other changes to the toe or other new or concerning changes. Prescriptions: New doxycycline hyclate 100 mg tablet 100 mg PO BID Qty: 20 0RF hydrocodone-acetaminophen 5-325 mg tablet 1 tab PO Q6H PRN (Reason: pain) Qty: 5 0RF Stand Alone Forms: Patient Portal/API/Survey
--- NOTE | 2024-12-23 07:33 | DI.RAD.S_ITS ---
PROCEDURE: XR TOE RT MIN 2V INDICATIONS: 5th toe bruising, hit it but not getting better. TECHNIQUE: 3 views of the 5th toe(s) acquired. COMPARISON: None. FINDINGS: Bones: Question subtle avulsion off the medial base of the middle phalanx of the small toe. No suspicious bony lesions. Soft tissues: No suspicious soft tissue densities. IMPRESSION: Question subtle avulsion off the medial base of the middle phalanx of the small toe. Dictated by: Sanchez Waters M.D. on 12/23/2024 at 8:20 Approved by: Sanchez Waters M.D. on 12/23/2024 at 8:21
--- NOTE | 2024-12-23 08:38 | PC.NURSE ---
Right pinky toe swelling and redness; pt reports he is unsure if it is from slipping and hitting his toe on hot tub or if it is a diabetic foot ulcer developing. Pt alert and oriented. denies fevers. states he is compliant with diabetes medication
== END 2024-12-23 08:41 | disposition home or self-care (01) ==
PROVIDERS: Emergency Provider Emergency Medicine
DX: S92.521A Displaced fracture of middle phalanx of right lesser toe(s), initial encounter for closed fracture (principal); W01.0XXA Fall on same level from slipping, tripping and stumbling without subsequent striking against object, initial encounter
CPT/HCPCS: 73660; 99281; 99283

== ENCOUNTER 2024-12-28 13:29 | Observation (INO) | payer MEDICARE, MEDICAID, SELFPAY ==
[2024-12-28] VITALS (26 sets, daily range): BP systolic 92–139; BP diastolic 54–74; PULSE 63–82; RESP 10–21; TEMP 36.1–36.5; O2SAT 60–100; BMI 31.9
--- NOTE | 2024-12-28 13:36 | EKG_ITS ---
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
--- NOTE | 2024-12-28 13:52 | DI.RAD.S_ITS ---
PROCEDURE: XR CHEST 1V INDICATIONS: chest pain TECHNIQUE: One view of the chest was acquired. COMPARISON: None. FINDINGS: Surgical changes and devices: Midline sternal wires and mediastinal vascular clips Lungs and pleura: Lungs are clear. No pleural effusions or pneumothorax. Mediastinum: Mediastinal contours appear normal. Heart size is normal. Bones and chest wall: No suspicious bony lesions. Overlying soft tissues appear unremarkable. IMPRESSION: No acute cardiopulmonary abnormality is seen. Approved by: Armin Parham M.D. on 12/28/2024 at 14:12
[2024-12-28 14:04] LABS: Basophils Absolute Auto 0 /uL (0-100); Basophils Percent Auto 0.5 % (0-2); Eosinophils Absolute Auto 100 /uL (0-450); Eosinophils Percent Auto 1.3 % (2-4); Hematocrit 53.8 % (41-53); Hemoglobin 17.9 g/dL (13.5-17.5); Lymphocytes Absolute Auto 3600 /uL (1100-4500); Lymphocytes Percent Auto 40.3 % (25-40); Mean Corpuscular HGB Conc 33.3 % (30-36); Mean Corpuscular Hemoglobin 26.7 PG (26-34); Mean Corpuscular Volume 80.2 fL (80-100); Monocytes Absolute Auto 1200 /uL (0-900); Monocytes Percent Auto 14.1 % (3-14); Neutrophils Absolute Auto 3900 /uL (1500-7000); Neutrophils Percent Auto 43.8 % (50-75); Platelet Count 177 X10^3/uL (150-400); Red Blood Cell Count 6.71 X10^6/uL (4.5-5.9); Red Cell Distribution Width 15.1 % (11.6-14.8); White Blood Cell Count 8.8 X10^3/uL (4.5-11.0)
[2024-12-28 14:07] LABS: Add Manual Diff / Slide Review SLIDE REVIEW
--- NOTE | 2024-12-28 14:07 | DI.CT.S_ITS ---
PROCEDURE: CT CERVICAL SPINE WO CON INDICATIONS: GLF, hit head, neck pain TECHNIQUE: Noncontrast 3 mm thick sections acquired from the skull base to the T4 level. Sagittal and coronal reformats were then constructed. For radiation dose reduction, the following was used: automated exposure control, adjustment of mA and/or kV according to patient size. COMPARISON: None. FINDINGS: Image quality: Excellent. Bones: No fractures or dislocations. Visualized superior ribs are intact. Degenerative disc disease and arthropathy present throughout the exam. Craniovertebral relationships are normal. No significant central stenosis. Large anterior osteophytes. Right C2-3 facet ankylosis Soft tissues: Prevertebral soft tissues are normal in thickness. No paravertebral hematomas. No apical pneumothoraces. IMPRESSION: Degenerative disc disease and arthropathy without fracture or traumatic malalignment Approved by: Armin Parham M.D. on 12/28/2024 at 14:21
--- NOTE | 2024-12-28 14:07 | DI.CT.S_ITS ---
PROCEDURE: CT HEAD/BRAIN WO CON INDICATIONS: GLF, hit head, neck pain TECHNIQUE: Noncontrast 4.5 mm thick angled axial sections acquired from the foramen magnum to the vertex, with coronal and sagittal reformats. For radiation dose reduction, the following was used: automated exposure control, adjustment of mA and/or kV according to patient size. COMPARISON: None. FINDINGS: Image quality: Diagnostic. CSF spaces: Basal cisterns are patent. No extra-axial fluid collections. Ventricles are normal in size and shape. Brain: No midline shift. No intracranial mass effect or hemorrhage. Munson-white matter interface is normal. Skull and face: Calvarium and visualized facial bones are intact, without suspicious lesions. Sinuses: Visualized sinuses and mastoids are clear. IMPRESSION: No acute intracranial pathology. Dictated by: Armin Parham M.D. on 12/28/2024 at 14:29 Approved by: Armin Parham M.D. on 12/28/2024 at 14:32
[2024-12-28 14:12] LABS: Alanine Aminotransferase 27 IU/L (<50); Albumin Globulin Ratio 1.4 (1.0-2.8); Alkaline Phosphatase 51 U/L (38-126); BUN Creatinine Ratio 15.4 (6-22); Bilirubin Total 1.4 mg/dL (0.2-1.3); Blood Urea Nitrogen 37 mg/dL (9-20); Calcium 10.6 mg/dL (8.4-10.2); Carbon Dioxide 27 mmol/L (22-32); Chloride 89 mmol/L (98-107); Creatine Kinase 40 U/L (55-170); Estimated Glomerular Filt Rate 28 mL/min (>60); Globulin 3.6 g/dL (1.7-4.1); Glucose 207 mg/dL (70-99); Lipase 35 U/L (23-300); Sodium 133 mmol/L (137-145); Total Protein 8.6 g/dL (6.3-8.2)
[2024-12-28 14:14] LABS: Aspartate Aminotransferase 41 IU/L (17-59); HEMOLYSIS 56 (0-50); Potassium 5.2 mmol/L (3.4-5.1)
--- NOTE | 2024-12-28 14:17 | PC.NURSE ---
This nurse to CT scan with pt and back. No complications, pt tolerated well.
[2024-12-28 14:18] LABS: Macrocytosis 1+; Microcytosis 1+
[2024-12-28 14:18] LABS: INR 1.1 (0.9-1.3); Prothrombin Time 12.5 SECONDS (9.4-12.5)
[2024-12-28 14:20] LABS: PTT Partial Thromboplastin Tim 41 SECONDS (25.1-36.5)
[2024-12-28 14:24] LABS: NT-proBNP (BNP-Adult 18+) 850 pg/mL (<125); Troponin I < 0.012 ng/mL (0.01-0.034)
--- NOTE | 2024-12-28 16:54 | ED_ITS ---
HPI - General Adult General Chief complaint: Syncope Stated complaint: GLF - been sick from [facility] Time Seen by Provider: 12/28/24 16:11 Source: patient and EMS Mode of arrival: EMS Limitations: no limitations History of Present Illness HPI narrative: 69-year-old male history of coronary artery disease status post CABG. Oxi-vvrpyfz-ulccxnhkc diabetes, marijuana use [place]ill[place] in the 80s. Patient states today he was sitting for some time got up and had loss of consciousness for about 10 or 20 seconds. Soundly mentation improved. Was complaining of little bit of neck pain but states it is improved currently. No headache currently, states little bit of ringing in his ears. No chest pain, no shortness of breath, no midline back pain. Patient is unclear if he was having any nausea or vomiting states initially that he was and then states that he isn't but has been taking a lot of showers for his symptoms. Notes the is still using marijuana oil. Denies any diarrhea. Denies any changes to urination. Denies any new injuries but was put on doxycycline and prescription for [place] for 5th toe fracture that has a little bit of skin breakdown. I states has not really improved. He does also note that he has medication PACs and did not realize he has been out of his metformin. He states it may has been for 2 or 3 months but he recently restarted his metformin 1000 mg in the last week. Denies any other injuries or signs of infection. Denies any other medication changes. Denies any allergies to medications. Dr. Reyes is is his primary care physician. He was accompanied by his partner. Related Data Previous Rx's Medication Instructions Recorded doxycycline hyclate 100 mg tablet 100 mg PO BID #20 tabs 12/23/24 hydrocodone 5 mg-acetaminophen 325 1 tab PO Q6H PRN pain #5 tabs 12/23/24 mg tablet Allergies Allergy/AdvReac Type Severity Reaction Status Date / Time No Known Drug Allergies Allergy Verified 12/23/24 07:17 Review of Systems Review of Systems ROS Unobtainable: All systems reviewed & are unremarkable except as noted in HPI and below Patient History Medical History Hyperlipidemia Hypertension Diabetes Coronary artery disease Cannabinoid hyperemesis syndrome Surgical History History of coronary artery bypass graft Status post cholecystectomy Social History household members: spouse Smoking Status: Current every day smoker Smoking Status: Current every day smoker alcohol intake frequency: 0-2 drinks per day Exam Narrative Exam Narrative: GEN: C-collar prior to arrival. Patient appears in mild distress. HEAD: No evidence of trauma, no raccoon/Donovan sign. NECK: Nontender, painless range of motion, trachea midline Negative Nexus criteria, no midline line tenderness, distracting injury, altered mental status, neuro deficit, recent EtOH. EYES: PERRLA, EOMI ENT: External inspection normal, trachea is midline, TM's are normal no hemotypanum, Nares are clear, no septal hematoma, no dental or oral injury, airway is normal and with normal occlusion, No bony tenderness RESP: Chest is nontender and has symmetric movement, no ecchymosis, breath sounds are normal no crackles, wheezes or rales CVS: Heart sounds are normal, no murmur noted, No JVD. ABG/GI: Nontender, soft, normal bowel sounds, no distention, no organomegaly, pelvic rock is negative NEURO: Oriented AOx3, neuro is grossly intact, sensation and motor is normal all 4 extremities moving, cranial nerves II through XII are intact, GCS is 15 PSYCH: Normal mood and affect SKIN: Intact, warm and dry, no crepitus and without decubitus BACK: No CVA tenderness, no vertebral tenderness, no step-off's, no crepitus EXT: Patient's 5th toe on his right foot has some ecchymosis, there is some skin breakdown particularly on the medial side with a little bit of clear drainage slight odor. Appears slightly worsened macerated compared to prior on 12/23/2024. Hips are nontender, no pedal edema, normal color and temperature, normal range of motion of extremities with normal tendon exam, 2+ pulses in all four extremities Initial Vital Signs Initial Vital Signs: Vital Signs Temperature 97.7 F 12/28/24 13:35 Pulse Rate 80 12/28/24 13:35 Respiratory Rate 18 12/28/24 13:35 Blood Pressure 96/62 12/28/24 13:35 Pulse Oximetry 99 12/28/24 13:35 Oxygen Delivery Method Room Air 12/28/24 13:35 Course Orders Ordered: ED Orders 12/28/24 13:30 Complete Blood Count AUTO DIFF Stat Comprehensive Metabolic Panel Stat Lipase Stat Magnesium Stat NT-proBNP (BNP-Adult 18+) Stat Troponin & CK Cardiac Panel Stat 12/28/24 13:36 EKG-12 Lead Stat 12/28/24 13:51 Consult to SERICULTURIST - Network Communications Engineer Stat 12/28/24 13:52 XR chest 1V Stat 12/28/24 14:04 PTT Partial Thromboplastin Enrique Stat Prothrombin Time INR Stat 12/28/24 14:07 CT cervical spine wo con Stat CT head/brain wo con Stat 12/28/24 17:15 UA Complete [Urinalysis and Microscopic] Stat 12/29/24 05:00 Basic Metabolic Panel Routine Complete Blood Count AUTO DIFF Routine Acetaminophen (Acetaminophen 325 Mg Tablet) 650 mg PO Q6H PRN PRN Reason: Fever/Mild Pain (1-3) Hydrocodone Bitart/Acetaminophen (Hydrocodone/Acet 5/325 Tablet) 1 tab PO Q6H PRN PRN Reason: pain Doxycycline Hyclate (Doxycycline Hyclate 100 Mg Tablet) 100 mg PO BID DOMINGA Sodium Chloride (Normal Saline 0.9%) 1,000 mls @ 100 mls/hr IV CONT DOMINGA Last Infusion: 12/28/24 17:54 Dose: 100 mls/hr Documented By: Admin: 12/28/24 17:35 Dose: 100 mls/hr Documented By: ADONIS Dextrose ([id number]) 100 mls @ 999 mls/hr IV PRN PRN PRN Reason: Hypoglycemia Insulin Human Lispro (Insulin Lispro 100 Unit/Ml 3ml Vial) 0 unit SUBCUT ACHS DOMINGA; Protocol Naloxone HCl (Naloxone 0.4 Mg/Ml Vial) 0.2 mg IV Q2MIN PRN PRN Reason: Opiate Reversal Discontinued Medications Aspirin (Aspirin 81 Mg Chew Tab) 324 mg PO NOW ONE Stop: 12/28/24 13:53 Sodium Chloride (Normal Saline 0.9%) 1,000 mls @ 1,000 mls/hr IV BOLUS ONE Stop: 12/28/24 18:14 Last Infusion: 12/28/24 17:33 Dose: Infused Documented By: Admin: 12/28/24 17:22 Dose: 1,000 mls/hr Documented By: SB Vital Signs Vital signs: Vital Signs - 8 hr 12/28/24 13:35 12/28/24 13:43 12/28/24 13:46 Temperature 97.7 F Pulse Rate 80 80 74 Respiratory Rate 18 16 15 Blood Pressure 96/62 Pulse Oximetry 99 100 99 Oxygen Delivery Method Room Air 12/28/24 13:46 12/28/24 13:52 12/28/24 13:52 Temperature Pulse Rate 76 Respiratory Rate 16 Blood Pressure 108/62 96/55 L Pulse Oximetry 100 Oxygen Delivery Method Room Air 12/28/24 14:00 12/28/24 14:02 12/28/24 14:02 Temperature Pulse Rate 74 78 Respiratory Rate 15 20 Blood Pressure 115/66 Pulse Oximetry 100 99 Oxygen Delivery Method Room Air Room Air 12/28/24 14:30 12/28/24 14:30 12/28/24 14:45 Temperature Pulse Rate 76 75 Respiratory Rate 13 15 Blood Pressure 105/63 Pulse Oximetry 60 L 100 Oxygen Delivery Method 12/28/24 14:45 12/28/24 15:00 12/28/24 15:00 Temperature Pulse Rate 70 Respiratory Rate 10 L Blood Pressure 94/59 L 102/59 L Pulse Oximetry 98 Oxygen Delivery Method 12/28/24 15:15 12/28/24 15:15 12/28/24 15:30 Temperature Pulse Rate 72 77 Respiratory Rate 14 16 Blood Pressure 109/56 L Pulse Oximetry 98 98 Oxygen Delivery Method Room Air Room Air 12/28/24 15:30 12/28/24 15:45 12/28/24 15:45 Temperature Pulse Rate 72 Respiratory Rate 14 Blood Pressure 111/57 L 100/58 L Pulse Oximetry 99 Oxygen Delivery Method Room Air 12/28/24 16:00 12/28/24 16:00 12/28/24 16:15 Temperature Pulse Rate 72 72 Respiratory Rate 10 L 13 Blood Pressure 107/59 L Pulse Oximetry 99 99 Oxygen Delivery Method 12/28/24 16:15 12/28/24 16:30 12/28/24 16:30 Temperature Pulse Rate 76 Respiratory Rate 17 Blood Pressure 93/54 L 99/57 L Pulse Oximetry 99 Oxygen Delivery Method 12/28/24 16:45 12/28/24 16:47 12/28/24 16:47 Temperature Pulse Rate 75 76 Respiratory Rate 18 16 Blood Pressure 107/67 Pulse Oximetry 100 99 Oxygen Delivery Method Room Air Room Air 12/28/24 17:00 12/28/24 17:01 12/28/24 17:01 Temperature Pulse Rate 77 76 Respiratory Rate 18 16 Blood Pressure 94/66 Pulse Oximetry 99 99 Oxygen Delivery Method 12/28/24 17:15 12/28/24 17:15 Temperature Pulse Rate 73 Respiratory Rate 16 Blood Pressure 101/55 L Pulse Oximetry 99 Oxygen Delivery Method Medical Decision Making Lab Data 12/28/24 13:30 12/28/24 13:30 Labs: Lab Results 12/28/24 12/28/24 Range/Units 13:30 14:04 WBC 8.8 (4.5-11.0) X10^3/uL RBC 6.71 H (4.5-5.9) X10^6/uL Hgb 17.9 H (13.5-17.5) g/dL Hct 53.8 H (41-53) % MCV 80.2 (80-100) fL MCH 26.7 (26-34) PG MCHC 33.3 (30-36) % RDW 15.1 H (11.6-14.8) % Plt Count 177 (150-400) X10^3/uL Neut % (Auto) 43.8 L (50-75) % Lymph % (Auto) 40.3 H (25-40) % [place] % (Auto) 14.1 H (3-14) % Eos % (Auto) 1.3 L (2-4) % Baso % (Auto) 0.5 (0-2) % Neut # (Auto) 3900 (3162-6232) /uL Lymph # (Auto) 3600 (8788-8486) /uL [place] # (Auto) 1200 H (0-900) /uL Eos # (Auto) 100 (0-450) /uL Baso # (Auto) 0 (0-100) /uL RBC Morphology See below Microcytosis 1+ H Macrocytosis 1+ H PT 12.5 (9.4-12.5) SECONDS INR 1.1 (0.9-1.3) APTT 41 H (25.1-36.5) SECONDS Sodium 133 L (137-145) mmol/L Potassium 5.2 H (3.4-5.1) mmol/L Chloride 89 L (98-107) mmol/L Carbon Dioxide 27 (22-32) mmol/L BUN 37 H (9-20) mg/dL Creatinine 2.40 H (0.66-1.25) mg/dL Estimated GFR 28 L (>60) mL/min BUN/Creatinine Ratio 15.4 (6-22) Glucose 207 H (70-99) mg/dL Calcium 10.6 H (8.4-10.2) mg/dL Magnesium 2.0 (1.6-2.3) mg/dL Total Bilirubin 1.4 H (0.2-1.3) mg/dL AST 41 (17-59) IU/L ALT 27 (<50) IU/L Alkaline Phosphatase 51 (38-126) U/L Total Creatine Kinase 40 L (55-170) U/L Troponin I < 0.012 (0.01-0.034) ng/mL NT-Pro-B Natriuret Pep 850 H (<125) pg/mL Total Protein 8.6 H (6.3-8.2) g/dL Albumin 5.0 (3.5-5.0) g/dL Globulin 3.6 (1.7-4.1) g/dL Albumin/Globulin Ratio 1.4 (1.0-2.8) Lipase 35 (23-300) U/L Point of Care Testing Glucose POC 168 Point of care testing: Point of Care Testing Glucose POC 168 ECG Data Attestation: I personally reviewed and interpreted this ECG as follows: Prior ECG tracings: available for review Interpretation: Sinus rhythm nonspecific change rate 80, MI 182 QRS of 98 QTC of 449, no acute ST elevation or depression. Patient was prior from 08/22/[address] changes appreciated. [facility] Narrative Medical decision making narrative: 69-year-old male history of coronary artery disease, diabetes presents what sounds like a vagal episode. Blood pressure has been soft, he was not tachycardic not hypoxic afebrile. She was has been achy his creatinine 2.4 with 0.80 in August 2024 4 months ago he does note he recently restarted his metformin because he was out had realized it. Potassium slightly elevated but it was also hemolyzed mildly on the sample. He has recently been on doxycycline and [place] for toe fracture with localized infection which has not been improving. He was started this on the 23 of December. BUN elevated and I suspect there maybe a component of dehydration. Patient's cervical spine was clinically cleared in the department. Because of his age and syncopal episode head CT was also obtained in his negative as well as his CT non-con. Patient was a white count 8.8 hemoglobin of 17 platelets of 177 hemoglobin was 15 to 16 on past visits to August 22, 2024. INR is 1.1, creatinine is 2.4, sodium is 133 potassium 5.2 chloride 89 CO2 is 27 with a BUN of 37, glucose is 207 with a calcium of 10.6. Bilirubin is 1.4 was 1.4 and 2023, troponins less than 0.012 with a BNP of 850. Slight hemolysis present. EKG shows sinus rhythm nonspecific change CT head without contrast shows no acute change CT cervical spine without contrast shows degenerative disc disease and arthropathy without fracture or traumatic malalignment. Large anterior osteophytes right C2 through 3 facet ankylosis. Chest x-ray shows no acute change. Patient received fluids. Spoke with Dr. Bang hospitalist accepts for admission. Discharge Plan Departure Patient Disposition: Admitted As Inpatient Clinical Impression: VARINDER (acute kidney injury), Dehydration, Infection of toe, Hypotension Admit Date/Time: 12/28/24 17:24 Admit Provider: Ayana Bang
--- NOTE | 2024-12-28 17:02 | CM.SWNOTE ---
Addendum entered by Melani Gonzalez 12/28/24 17:37: Initial DCP Assessment Note This STREET SUPERVISOR is informed that patient has not been taking his Metformin for a few months and started taking it again recently leading to syncopal episode. Patient has been admitted by hospitalist due to concern for VARINDER (acute kidney injury), Dehydration, Infection of toe, and Hypotension. Patient had previous ED presentation last week due to concern for toe fracture. Patient endorses preference to d/c to home upon medical clearance. Please see initial note below. Plan: patient to be admitted for further evaluation and treatment, patient likely to d/c to home with spouse upon medical clearance. BARBARA Clark Discharge Planning/Care Management CM Discharge Assessment Start: 12/28/24 17:30 Freq: Status: Active Protocol: Document 12/28/24 17:30 LN (Rec: 12/28/24 17:36 LN [id number]) Discharge Planning Assessment Assigned Surgery Assistant BARBARA Polo DPOA/Assigned Designee Name Spouse/Gene Contact Information [phone] Advance Directives? No History Provided By Patient,Medical Record Prior Living Arrangements Mobile home Household Members spouse Type of transporation used prior to Drives own vehicle admit Independent with ADL's Yes Is patient alert and oriented? Yes DME Already Rented / Owned Wheelchair,FWW / Walker,Cane Referrals Initiated None needed Additional Comment Preference to d/c to home Original Note: ED STREET SUPERVISOR Note Patient is 69 y/o male who presents to ED via EMS due to concern for syncopal episode. STREET SUPERVISOR receives consult due to patient's concern about looking into better living situations. Patient's PCP is Dr. Reyes at [facility], patient has [facility] and Medicaid insurance. STREET SUPERVISOR enters room to meet with patient, patient presents as A/Ox4, patient states that he resides in a motor home, patient states he has been homeless for 10 years residing in a motor home. Patient states he resides at [facility]. Patient endorses that he receives SSI and SSD about $960 a month. Patient endorses he is independent with ADLs, and has a supportive spouse. Patient states he ambulates independently but has FWW and cane. Patient states for long distances outdoors he has an electric wheelchair. Patient endorses that the 5 steps in and out of his motor home can become difficult for him at times. Patient endorses he would be interested in moving into a house. STREET SUPERVISOR provides patient with lists of affordable housing options in [facility] and senior resource guide. STREET SUPERVISOR also discusses [facility] with patient. Plan: patient likely to d/c to home upon medical clearance. Patient to f/u with resources provided. LINDSEY ClarkSW
--- NOTE | 2024-12-28 17:09 | PC.NURSE ---
C-Collar removed by Dr. Ledezma.
[2024-12-28] MEDS: SODIUM CHLORIDE 0.9% 1,000 ML 1000 ML IV (17:22)
--- NOTE | 2024-12-28 17:34 | PC.NURSE ---
NS fluid bolus stopped as new orders by hospitalist placed for NS at 100 mls/hr.
[2024-12-28] MEDS: SODIUM CHLORIDE 0.9% 1,000 ML 100 ML IV (17:35)
--- NOTE | 2024-12-28 18:54 | PC.ADMIT ---
1207 [facility] Admission Note: Pt arrived to room 224 at approximately 17:55 from the ED. Pt was able to stand and pivot to bed, c/o dizziness. Lungs clear, A&Ox4. Pt oriented to room and call light. Pt able to use call light. Bed locked. Call light within reach. Care ongoing. The patient,Nakul Parekh,69 y/o, was given written information regarding hospital policies, unit procedures and contact persons. Patient's smoking status: Current every day smoker. Vital Signs - 8 hr 12/28/24 13:35 12/28/24 13:43 12/28/24 13:46 Temperature 97.7 F Pulse Rate 80 80 74 Respiratory Rate 18 16 15 Blood Pressure 96/62 Pulse Oximetry 99 100 99 Oxygen Delivery Method Room Air Oxygen Flow Rate 12/28/24 13:46 12/28/24 13:52 12/28/24 13:52 Temperature Pulse Rate 76 Respiratory Rate 16 Blood Pressure 108/62 96/55 L Pulse Oximetry 100 Oxygen Delivery Method Room Air Oxygen Flow Rate 12/28/24 14:00 12/28/24 14:02 12/28/24 14:02 Temperature Pulse Rate 74 78 Respiratory Rate 15 20 Blood Pressure 115/66 Pulse Oximetry 100 99 Oxygen Delivery Method Room Air Room Air Oxygen Flow Rate 12/28/24 14:30 12/28/24 14:30 12/28/24 14:45 Temperature Pulse Rate 76 75 Respiratory Rate 13 15 Blood Pressure 105/63 Pulse Oximetry 60 L 100 Oxygen Delivery Method Oxygen Flow Rate 12/28/24 14:45 12/28/24 15:00 12/28/24 15:00 Temperature Pulse Rate 70 Respiratory Rate 10 L Blood Pressure 94/59 L 102/59 L Pulse Oximetry 98 Oxygen Delivery Method Oxygen Flow Rate 12/28/24 15:15 12/28/24 15:15 12/28/24 15:30 Temperature Pulse Rate 72 77 Respiratory Rate 14 16 Blood Pressure 109/56 L Pulse Oximetry 98 98 Oxygen Delivery Method Room Air Room Air Oxygen Flow Rate 12/28/24 15:30 12/28/24 15:45 12/28/24 15:45 Temperature Pulse Rate 72 Respiratory Rate 14 Blood Pressure 111/57 L 100/58 L Pulse Oximetry 99 Oxygen Delivery Method Room Air Oxygen Flow Rate 12/28/24 16:00 12/28/24 16:00 12/28/24 16:15 Temperature Pulse Rate 72 72 Respiratory Rate 10 L 13 Blood Pressure 107/59 L Pulse Oximetry 99 99 Oxygen Delivery Method Oxygen Flow Rate 12/28/24 16:15 12/28/24 16:30 12/28/24 16:30 Temperature Pulse Rate 76 Respiratory Rate 17 Blood Pressure 93/54 L 99/57 L Pulse Oximetry 99 Oxygen Delivery Method Oxygen Flow Rate 12/28/24 16:45 12/28/24 16:47 12/28/24 16:47 Temperature Pulse Rate 75 76 Respiratory Rate 18 16 Blood Pressure 107/67 Pulse Oximetry 100 99 Oxygen Delivery Method Room Air Room Air Oxygen Flow Rate 12/28/24 17:00 12/28/24 17:01 12/28/24 17:01 Temperature Pulse Rate 77 76 Respiratory Rate 18 16 Blood Pressure 94/66 Pulse Oximetry 99 99 Oxygen Delivery Method Oxygen Flow Rate 12/28/24 17:15 12/28/24 17:15 12/28/24 17:30 Temperature Pulse Rate 73 75 Respiratory Rate 16 21 Blood Pressure 101/55 L Pulse Oximetry 99 98 Oxygen Delivery Method Oxygen Flow Rate 12/28/24 17:31 12/28/24 17:31 12/28/24 17:45 Temperature Pulse Rate 75 69 Respiratory Rate 19 16 Blood Pressure 92/54 L Pulse Oximetry 99 98 Oxygen Delivery Method Oxygen Flow Rate 12/28/24 17:45 12/28/24 18:00 Temperature Pulse Rate 82 Respiratory Rate Blood Pressure 99/56 L 106/64 Pulse Oximetry 98 Oxygen Delivery Method Oxygen Flow Rate 0
--- NOTE | 2024-12-28 19:59 | PM.HP.1 ---
History of Present Illness History of Present Illness Chief complaint: GLF - been sick from [facility] Narrative: 69-year-old male with diabetes mellitus type 2, coronary artery disease status post three-vessel CABG, hypertension, hyperlipidemia, and possible history of cannabinoid hyperemesis syndrome who recently was seen in the emergency department 2 days ago for a right 5th toe fracture who presented to the emergency department today after a syncopal episode. He reports he was in his motor home and visiting with a friend when he became very dizzy. He states he felt himself fall and heard a loud thud. The next thing he remembers is his friend trying to get him to respond. She told him he had been looking around but was not responding to her. He did his head on a metal grate. EMS was called and reported that he was orthostatic. He was subsequently brought the emergency department. In the emergency department he complained of slight neck pain that had subsequently improved. No headache. No chest pain, shortness on breath or back pain. No nausea or vomiting. No diarrhea. No fevers or chills. He had been on doxycycline for a paronychial infection in that right 5th toe that had the fracture. He had also been taking Topock for pain. He notes that he did start taking metformin 1000 mg twice daily approximately 3 days ago. He had run out of it he believes sometime in the past couple of months. He had not titrated it up but rather just started back on his prior dose. He notes he has been making an effort to lose weight. He used to weigh above 400 lb and gradually over about 12 years was able to lose weight down into the 200s. He states he recently gained weight and has working actively on losing. When he is trying to lose weight, he notes that he tends to lose his appetite. He does report he has been drinking fluids normally. [facility] Medical History Hyperlipidemia Hypertension Diabetes Coronary artery disease Cannabinoid hyperemesis syndrome Surgical History History of coronary artery bypass graft Status post cholecystectomy Family History (Updated 12/28/24 @ 20:05 by Ayana Bang MD) Mother Congestive heart failure Brother Diabetes mellitus Father Diabetes mellitus Coronary artery disease Social History (Updated 12/28/24 @ 20:05 by Ayana Bang MD) household members: spouse alcohol intake: never substance use type: marijuana Comment: Daily marijuana user Meds Home Medications and Allergies Home Medications Medication Instructions Recorded Confirmed Type doxycycline hyclate 100 mg tablet 100 mg PO BID #20 tabs 12/23/24 12/28/24 Rx hydrocodone 5 mg-acetaminophen 325 1 tab PO Q6H PRN pain #5 tabs 12/23/24 12/28/24 Rx mg tablet insulin glargine 100 unit/mL (3 35 unit SUBCUT DAILY 12/28/24 12/28/24 History mL) subcutaneous pen (Lantus Solostar U-100 Insulin) Allergies Allergy/AdvReac Type Severity Reaction Status Date / Time No Known Drug Allergies Allergy Verified 12/23/24 07:17 Review of Systems Review of Systems Narrative: All other systems were reviewed negative Exam Vital Signs (past 8 hours): - 12/28/24 13:35 12/28/24 13:43 12/28/24 13:46 Temperature 97.7 F Pulse Rate 80 80 74 Respiratory Rate 18 16 15 Blood Pressure 96/62 Pulse Oximetry 99 100 99 Oxygen Delivery Method Room Air Oxygen Flow Rate 12/28/24 13:46 12/28/24 13:52 12/28/24 13:52 Temperature Pulse Rate 76 Respiratory Rate 16 Blood Pressure 108/62 96/55 L Pulse Oximetry 100 Oxygen Delivery Method Room Air Oxygen Flow Rate 12/28/24 14:00 12/28/24 14:02 12/28/24 14:02 Temperature Pulse Rate 74 78 Respiratory Rate 15 20 Blood Pressure 115/66 Pulse Oximetry 100 99 Oxygen Delivery Method Room Air Room Air Oxygen Flow Rate 12/28/24 14:30 12/28/24 14:30 12/28/24 14:45 Temperature Pulse Rate 76 75 Respiratory Rate 13 15 Blood Pressure 105/63 Pulse Oximetry 60 L 100 Oxygen Delivery Method Oxygen Flow Rate 12/28/24 14:45 12/28/24 15:00 12/28/24 15:00 Temperature Pulse Rate 70 Respiratory Rate 10 L Blood Pressure 94/59 L 102/59 L Pulse Oximetry 98 Oxygen Delivery Method Oxygen Flow Rate 12/28/24 15:15 12/28/24 15:15 12/28/24 15:30 Temperature Pulse Rate 72 77 Respiratory Rate 14 16 Blood Pressure 109/56 L Pulse Oximetry 98 98 Oxygen Delivery Method Room Air Room Air Oxygen Flow Rate 12/28/24 15:30 12/28/24 15:45 12/28/24 15:45 Temperature Pulse Rate 72 Respiratory Rate 14 Blood Pressure 111/57 L 100/58 L Pulse Oximetry 99 Oxygen Delivery Method Room Air Oxygen Flow Rate 12/28/24 16:00 12/28/24 16:00 12/28/24 16:15 Temperature Pulse Rate 72 72 Respiratory Rate 10 L 13 Blood Pressure 107/59 L Pulse Oximetry 99 99 Oxygen Delivery Method Oxygen Flow Rate 12/28/24 16:15 12/28/24 16:30 12/28/24 16:30 Temperature Pulse Rate 76 Respiratory Rate 17 Blood Pressure 93/54 L 99/57 L Pulse Oximetry 99 Oxygen Delivery Method Oxygen Flow Rate 12/28/24 16:45 12/28/24 16:47 12/28/24 16:47 Temperature Pulse Rate 75 76 Respiratory Rate 18 16 Blood Pressure 107/67 Pulse Oximetry 100 99 Oxygen Delivery Method Room Air Room Air Oxygen Flow Rate 12/28/24 17:00 12/28/24 17:01 12/28/24 17:01 Temperature Pulse Rate 77 76 Respiratory Rate 18 16 Blood Pressure 94/66 Pulse Oximetry 99 99 Oxygen Delivery Method Oxygen Flow Rate 12/28/24 17:15 12/28/24 17:15 12/28/24 17:30 Temperature Pulse Rate 73 75 Respiratory Rate 16 21 Blood Pressure 101/55 L Pulse Oximetry 99 98 Oxygen Delivery Method Oxygen Flow Rate 12/28/24 17:31 12/28/24 17:31 12/28/24 17:45 Temperature Pulse Rate 75 69 Respiratory Rate 19 16 Blood Pressure 92/54 L Pulse Oximetry 99 98 Oxygen Delivery Method Oxygen Flow Rate 12/28/24 17:45 12/28/24 18:00 Temperature Pulse Rate 82 Respiratory Rate Blood Pressure 99/56 L 106/64 Pulse Oximetry 98 Oxygen Delivery Method Oxygen Flow Rate 0 Oxygen Delivery Method Room Air Oxygen Flow Rate 0 Narrative Exam Narrative: GEN: Very pleasant middle-aged male, Alert and oriented x3, no acute distress HEENT: Normocephalic, face symmetric, pupils equal round reactive to light, extraocular movements intact, sclerae anicteric, conjunctiva clear, nares patent, oropharynx reveals an intact soft and hard palate with moist mucous membranes, dentition is fair NECK: Supple, no lymphadenopathy, thyroid without enlargement or nodularity, carotids no bruits CHEST: Respiratory excursions symmetric, clear to auscultation bilaterally CV: Regular rate and rhythm, no murmurs, rubs, gallops, PMI nondisplaced ABD: Soft, nontender, nondistended, bowel sounds present in all 4 quadrants, no organomegaly or masses appreciated EXTR: Warm, well perfused, no clubbing/cyanosis/edema, right 5th toe is swollen and bruised, no cellulitis SKIN: Warm and dry, without rash NEURO: Alert and oriented x3, nonfocal PSYCH: Mood and affect is within normal limits, judgment and insight are appropriate Objective Labs 12/28/24 13:30 12/28/24 13:30 Labs: Laboratory Results - last 24 hr 12/28/24 12/28/24 13:30 14:04 WBC 8.8 RBC 6.71 H Hgb 17.9 H Hct 53.8 H MCV 80.2 MCH 26.7 MCHC 33.3 RDW 15.1 H Plt Count 177 Neut % (Auto) 43.8 L Lymph % (Auto) 40.3 H Rock % (Auto) 14.1 H Eos % (Auto) 1.3 L Baso % (Auto) 0.5 Neut # (Auto) 3900 Lymph # (Auto) 3600 Rock # (Auto) 1200 H Eos # (Auto) 100 Baso # (Auto) 0 RBC Morphology See below Microcytosis 1+ H Macrocytosis 1+ H PT 12.5 INR 1.1 APTT 41 H Sodium 133 L Potassium 5.2 H Chloride 89 L Carbon Dioxide 27 BUN 37 H Creatinine 2.40 H Estimated GFR 28 L BUN/Creatinine Ratio 15.4 Glucose 207 H Calcium 10.6 H Magnesium 2.0 Total Bilirubin 1.4 H AST 41 ALT 27 Alkaline Phosphatase 51 Total Creatine Kinase 40 L Troponin I < 0.012 NT-Pro-B Natriuret Pep 850 H Total Protein 8.6 H Albumin 5.0 Globulin 3.6 Albumin/Globulin Ratio 1.4 Lipase 35 Assessment & Plan Assessment & Plan narrative: 1. Syncope Patient presented after a syncopal episode. He was noted to be orthostatic in the field. He has been actively working on weight loss. He has evidence of acute kidney injury on labs. He likely had some degree of dehydration. He received 2 L of IV fluids in the emergency department. I did orthostatic vital signs lying and sitting in his hospital bed. He was no longer orthostatic and minimally symptomatic. Will continue IV hydration overnight. Head CT was negative. If he continues to have symptoms, would consider an echocardiogram tomorrow 2. Acute kidney injury Creatinine is 2.40 up from a baseline of 0.88. BUN was up to 37 from baseline 21. Likely secondary to a combination of decreased oral intake and fluids due to intentional weight loss and restarting metformin at high dosing. We will continue hydration and monitor closely. 3. Diabetes mellitus type 2 He is on Lantus and Mounjaro at baseline. He was on a 1000 mg of metformin twice daily but ran out of it a couple of months ago as noted. He restarted abruptly at 1 g b.i.d.. This is being held due to his VARINDER. 4. Coronary artery disease He has had a remote three-vessel CABG. He has not had any cardiac symptoms. Await medication reconciliation. 5. Hypertension He is unable to tell me what medications he takes regularly. Await medication reconciliation Code status Full Prophylaxis Low Rose score Disposition Admit to acute care Time-Based Coding :: [TOTAL MINUTES] spent with patient and on the chart (including review of chart, obtaining history, exam, reviewing outside data, placing orders, documenting exam and treatment plan, and counseling patient) on [DATE].
[2024-12-28] MEDS: HYDROCODONE/ACET 5/325 TABLET 1 TAB PO (20:02)
[2024-12-28] MEDS: DOXYCYCLINE HYCLATE 100 MG TABLET PO (20:29)
[2024-12-29] MEDS: SODIUM CHLORIDE 0.9% 1,000 ML 100 ML IV (01:29)
[2024-12-29] MEDS: HYDROCODONE/ACET 5/325 TABLET 1 TAB PO ×2 (01:42→07:25)
[2024-12-29 02:19] LABS: Appearance Urine UA CLEAR; Bacteria Urine None Seen; Bilirubin Urine UA NEGATIVE (NEGATIVE); Color Urine UA Dark Yellow; Glucose Urine UA 3+ g/dL (Negative); Hyaline Casts Urine 1-5/LPF; Ketones Urine UA NEGATIVE (NEGATIVE); Leukocyte Esterase Urine UA NEGATIVE (NEGATIVE); Nitrite Urine UA NEGATIVE (Negative); Occult Blood Urine UA NEGATIVE (Negative); Protein Urine UA NEGATIVE (Negative); RBC Urine None Seen (0-5/HPF); Squamous Epithelial Cell Urine None Seen (0-5/HPF); Urine Volume 10mL (spun); Urobilinogen Urine UA 0.2 E.U./dL (0.2); WBC Urine None Seen (0-5/HPF); pH Urine UA 5.5 (4.5-8.0)
[2024-12-29 02:20] LABS: Culture Indicated Urine Cult Not Indicated
[2024-12-29 04:01] VITALS: BP 142/83; PULSE 64; RESP 18; TEMP 36.4; O2SAT 99
--- NOTE | 2024-12-29 04:30 | EKG_ITS ---
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
[2024-12-29 05:23] LABS: Add Manual Diff / Slide Review NO; Basophils Absolute Auto 0 /uL (0-100); Basophils Percent Auto 0.5 % (0-2); Eosinophils Absolute Auto 200 /uL (0-450); Eosinophils Percent Auto 2.3 % (2-4); Hematocrit 47.5 % (41-53); Hemoglobin 15.9 g/dL (13.5-17.5); Lymphocytes Absolute Auto 2700 /uL (1100-4500); Lymphocytes Percent Auto 36.9 % (25-40); Mean Corpuscular HGB Conc 33.6 % (30-36); Mean Corpuscular Hemoglobin 26.8 PG (26-34); Mean Corpuscular Volume 79.7 fL (80-100); Monocytes Absolute Auto 1000 /uL (0-900); Monocytes Percent Auto 12.9 % (3-14); Neutrophils Absolute Auto 3500 /uL (1500-7000); Neutrophils Percent Auto 47.4 % (50-75); Platelet Count 131 X10^3/uL (150-400); Red Blood Cell Count 5.96 X10^6/uL (4.5-5.9); White Blood Cell Count 7.4 X10^3/uL (4.5-11.0)
[2024-12-29 05:46] LABS: BUN Creatinine Ratio 28.3 (6-22); Blood Urea Nitrogen 28 mg/dL (9-20); Calcium 9.3 mg/dL (8.4-10.2); Carbon Dioxide 28 mmol/L (22-32); Chloride 98 mmol/L (98-107); Estimated Glomerular Filt Rate > 60 mL/min (>60); Glucose 58 mg/dL (70-99); HEMOLYSIS < 15 (0-50); Potassium 3.7 mmol/L (3.4-5.1); Sodium 134 mmol/L (137-145)
[2024-12-29] MEDS: ACETAMINOPHEN 325 MG TABLET 650 MG PO (06:43)
[2024-12-29 08:00] VITALS: BP 128/75; PULSE 72; RESP 15; TEMP 35.9; O2SAT 100
--- NOTE | 2024-12-29 09:11 | PM.DS.1 ---
History of Present Illness History of Present Illness Date Patient Seen: 12/29/24 Chief complaint: GLF - been sick from [facility] Narrative: Per admitting provider, 69-year-old male with diabetes mellitus type 2, coronary artery disease status post three-vessel CABG, hypertension, hyperlipidemia, and possible history of cannabinoid hyperemesis syndrome who recently was seen in the emergency department 2 days ago for a right 5th toe fracture who presented to the emergency department today after a syncopal episode. He reports he was in his motor home and visiting with a friend when he became very dizzy. He states he felt himself fall and heard a loud thud. The next thing he remembers is his friend trying to get him to respond. She told him he had been looking around but was not responding to her. He did his head on a metal grate. EMS was called and reported that he was orthostatic. He was subsequently brought the emergency department. In the emergency department he complained of slight neck pain that had subsequently improved. No headache. No chest pain, shortness on breath or back pain. No nausea or vomiting. No diarrhea. No fevers or chills. He had been on doxycycline for a paronychial infection in that right 5th toe that had the fracture. He had also been taking Millsap for pain. He notes that he did start taking metformin 1000 mg twice daily approximately 3 days ago. He had run out of it he believes sometime in the past couple of months. He had not titrated it up but rather just started back on his prior dose. He notes he has been making an effort to lose weight. He used to weigh above 400 lb and gradually over about 12 years was able to lose weight down into the 200s. He states he recently gained weight and has working actively on losing. When he is trying to lose weight, he notes that he tends to lose his appetite. He does report he has been drinking fluids normally. Discharge Providers Provider Date of admission: 12/28/24 17:24 Discharge Date: 12/29/24 Primary care physician: Froilan Reyes DO Consults: 12/28/24 13:51 Consult to [facility] [place] - Junior Mechanical Engineer Stat Comment: concerns for housing Junior Mechanical Engineer Consult needed for:: Has no money Discharge provider: Ryan Gómez DO Summary Hospital Course Discharge Diagnosis: 1. Syncope, orthostatic 2. Acute kidney injury, improved, POA 3. Diabetes mellitus type 2 4. Coronary artery disease 5. Hypertension Hospital Course: This is a 69-year-old male with a past medical history of type 2 diabetes, CAD, hypertension who was admitted with acute kidney injury and dehydration after an episode of syncope. His syncope was found to be due to orthostasis which improved after IV fluids. He is able to ambulate without significant dizziness at the time of discharge. His renal function cunningham markedly improved more rapidly than expected and was near his baseline improving from 2.4-0.9 at the time of discharge. His symptoms may be related to restarting metformin at max dosing, which cause significant nausea and decreased oral intake. He states that he will resume with a half a pill once a day to start moving forward. His home Lantus was also held with normal glucose levels while he was here in the hospital. Recommend continued close observation as an outpatient with resumption of home Lantus, and he was counseled on this prior to discharge. No other changes at this time are currently recommended to his home medications. Time Spent with Patient Time spent: Greater than 30 minutes Exam Vital Signs (past 8 hours): - 12/29/24 04:01 12/29/24 08:00 Temperature 97.5 F L 96.6 F L Pulse Rate 64 72 Respiratory Rate 18 15 Blood Pressure 142/83 H 128/75 Pulse Oximetry 99 100 Oxygen Flow Rate 0 Oxygen Delivery Method Room Air Oxygen Flow Rate 0 Narrative Exam Narrative: GEN: Very pleasant middle-aged male, Alert and oriented x3, no acute distress CHEST: Respiratory excursions symmetric, clear to auscultation bilaterally CV: Regular rate and rhythm, no murmurs, rubs, gallops, PMI nondisplaced ABD: Soft, nontender, nondistended EXTR: Warm, well perfused, no clubbing/cyanosis/edema, right 5th toe is swollen and bruised, no cellulitis SKIN: Warm and dry, without rash NEURO: Alert and oriented x3, nonfocal Objective Labs 12/29/24 04:30 12/29/24 04:30 Labs: Laboratory Results - last 24 hr 12/28/24 12/28/24 12/28/24 13:30 14:04 21:26 WBC 8.8 RBC 6.71 H Hgb 17.9 H Hct 53.8 H MCV 80.2 MCH 26.7 MCHC 33.3 RDW 15.1 H Plt Count 177 Neut % (Auto) 43.8 L Lymph % (Auto) 40.3 H [place] % (Auto) 14.1 H Eos % (Auto) 1.3 L Baso % (Auto) 0.5 Neut # (Auto) 3900 Lymph # (Auto) 3600 [place] # (Auto) 1200 H Eos # (Auto) 100 Baso # (Auto) 0 RBC Morphology See below Microcytosis 1+ H Macrocytosis 1+ H PT 12.5 INR 1.1 APTT 41 H Sodium 133 L Potassium 5.2 H Chloride 89 L Carbon Dioxide 27 BUN 37 H Creatinine 2.40 H Estimated GFR 28 L BUN/Creatinine Ratio 15.4 Glucose 207 H Calcium 10.6 H Magnesium 2.0 Total Bilirubin 1.4 H AST 41 ALT 27 Alkaline Phosphatase 51 Total Creatine Kinase 40 L Troponin I < 0.012 NT-Pro-B Natriuret Pep 850 H Total Protein 8.6 H Albumin 5.0 Globulin 3.6 Albumin/Globulin Ratio 1.4 Lipase 35 Urine Color Dark yellow Urine Appearance Clear Urine pH 5.5 Ur Specific [place] 1.010 Urine Protein Negative Urine Glucose (UA) 3+ H Urine Ketones Negative Urine Occult Blood Negative Urine Nitrate Negative Urine Bilirubin Negative Urine Urobilinogen 0.2 Ur Leukocyte Esterase Negative Urine RBC None seen Urine WBC None seen Ur Squamous Epith Cells None seen Urine Bacteria None seen Hyaline Casts 1-5/lpf Ur Culture Indicated? Cult not indicated Vol Urine Centrifuged 10ml (spun) 12/29/24 04:30 WBC 7.4 RBC 5.96 H Hgb 15.9 Hct 47.5 MCV 79.7 L MCH 26.8 MCHC 33.6 RDW 15.0 H Plt Count 131 L Neut % (Auto) 47.4 L Lymph % (Auto) 36.9 [place] % (Auto) 12.9 Eos % (Auto) 2.3 Baso % (Auto) 0.5 Neut # (Auto) 3500 Lymph # (Auto) 2700 [place] # (Auto) 1000 H Eos # (Auto) 200 Baso # (Auto) 0 RBC Morphology Microcytosis Macrocytosis PT INR APTT Sodium 134 L Potassium 3.7 D Chloride 98 Carbon Dioxide 28 BUN 28 H Creatinine 0.99 Estimated GFR > 60 BUN/Creatinine Ratio 28.3 H Glucose 58 L D Calcium 9.3 Magnesium Total Bilirubin AST ALT Alkaline Phosphatase Total Creatine Kinase Troponin I NT-Pro-B Natriuret Pep Total Protein Albumin Globulin Albumin/Globulin Ratio Lipase Urine Color Urine Appearance Urine pH Ur Specific [place] Urine Protein Urine Glucose (UA) Urine Ketones Urine Occult Blood Urine Nitrate Urine Bilirubin Urine Urobilinogen Ur Leukocyte Esterase Urine RBC Urine WBC Ur Squamous Epith Cells Urine Bacteria Hyaline Casts Ur Culture Indicated? Vol Urine Centrifuged PFSH Medical History Hyperlipidemia Hypertension Diabetes Coronary artery disease Cannabinoid hyperemesis syndrome Surgical History History of coronary artery bypass graft Status post cholecystectomy Family History (Updated 12/28/24 @ 20:05 by Ayana Bang MD) Mother Congestive heart failure Brother Diabetes mellitus Father Diabetes mellitus Coronary artery disease Social History (Updated 12/28/24 @ 20:05 by Ayana Bang MD) household members: spouse Smoking Status: Never smoker alcohol intake: never substance use type: marijuana Discharge Plan Discharge Plan Patient Disposition: Home Provider Discharge Comment: You were admitted to the hospital with dehydration, possibly due to restarting max dose of metformin. As you were stating, starting with a half pill once a day for the first week is okay. No other changes to your home medications currently are recommended. Keep an eye on your blood sugar levels as well, your home Lantus may need to be decreased. You can restart losartan tomorrow morning. Discharge orders & Medications Prescriptions: Continued doxycycline hyclate 100 mg tablet 100 mg PO BID Qty: 20 0RF hydrocodone-acetaminophen 5-325 mg tablet 1 tab PO Q6H PRN (Reason: pain) Qty: 5 0RF insulin glargine [Lantus Solostar U-100 Insulin] 100 unit/mL (3 mL) insulin pen 35 unit SUBCUT DAILY Patient Comments: [NO ORIGINAL SIG] Rx Instructions: taken in the morning cyclobenzaprine 10 mg tablet 10 mg PO 3XD metformin 1,000 mg tablet 1,000 mg PO DAILY losartan 25 mg tablet 25 mg PO DAILY gabapentin 300 mg capsule 300 mg PO DAILY Jardiance 25 mg tablet 25 mg PO DAILY Mounjaro 7.5 mg/0.5 mL pen injector 7.5 mg SUBCUT WEEKLY Patient Comments: [NO ORIGINAL SIG] Follow up/Referrals: Froilan Reyes, [Primary Care Provider] - Discharge Health Status Multidrug resistant organism: No MDRO Diet/Activity/Treatments Diet: Diet as Tolerated and Carb-consistent/Diabetic Activity: As tolerated, no restrictions. Visit Report/Discharge Packet Instructions: DI for Dehydration -- Adult Stand Alone Forms: Patient Portal/API, Stroke Signs & Symptoms Discharge Data Primary Care Provider: Froilan Reyes Attending Provider: Ayana Bang Admit Date/Time: 12/28/24 17:24
--- NOTE | 2024-12-29 10:30 | PC.NURSE ---
Discharge: Pt agreeable to discharge. IV discontinued, telemetry removed. Education provided to pt on stroke s/s, follow-up, worsening symptoms, medication management, dehydration prevention, and diet. Pt dressed self, able to ambulate in room SBA. Pt wheeled by PCT via w/c to private vehicle with friend at approximately 1030.
--- NOTE | 2024-12-29 10:36 | CM.DPNOTE ---
DCP note HIDE SPLITTER reviewed EMR per provider in rounds, anticipate dc today. HIDE SPLITTER attempted to meet with pt in room, pt already left with partner. P: home today with OP f/u likely. will continue to follow as needed HOWARD García
== END 2024-12-29 10:30 | disposition home or self-care (01) ==
LOC: ED 17:24 → AC 17:42
PROVIDERS: Admitting Provider Family Medicine; Emergency Provider Emergency Medicine; PCP Internal Medicine; Referring Provider Emergency Medicine; Visit Provider Family Medicine
DX: I95.1 Orthostatic hypotension (principal); N17.9 Acute kidney failure, unspecified; E66.9 Obesity, unspecified; I10 Essential (primary) hypertension; E78.5 Hyperlipidemia, unspecified; I25.10 Atherosclerotic heart disease of native coronary artery without angina pectoris; F17.210 Nicotine dependence, cigarettes, uncomplicated; Z95.1 Presence of aortocoronary bypass graft; Z79.84 Long term (current) use of oral hypoglycemic drugs
CPT/HCPCS: 36415; 70450; 71045; 72125; 80048; 80053; 81001; 82550; 82962; 83690; 83735; 83880; 84484; 85025; 85610; 85730; 93005; 96360; 96361; 99284; G0378

== ENCOUNTER 2024-12-31 18:19 | Emergency (ER) | payer MEDICARE, MEDICAID, SELFPAY ==
[2024-12-28 18:19] VITALS: BMI 31.9
[2024-12-31 18:30] VITALS: BP 120/66; PULSE 83; RESP 18; TEMP 37; O2SAT 100; BMI 30.7
== END 2024-12-31 21:10 | disposition left against medical advice (07) ==
PROVIDERS: Emergency Provider Emergency Medicine; PCP Internal Medicine
DX: M79.671 Pain in right foot (principal)
CPT/HCPCS: 99281

== ENCOUNTER 2025-02-04 04:55 | Emergency (ER) | payer MEDICARE, MEDICAID, SELFPAY ==
[2024-12-28 18:19] VITALS: BMI 31.9
[2025-02-04 05:00] VITALS: BP 184/99; PULSE 83; RESP 16; TEMP 36.1; O2SAT 100; BMI 32.3
[2025-02-04 05:02] VITALS: BP 168/77; PULSE 78; O2SAT 100
--- NOTE | 2025-02-04 05:10 | DI.RAD.S_ITS ---
PROCEDURE: XR CHEST 1V INDICATIONS: SOB TECHNIQUE: One view of the chest was acquired. COMPARISON: [facility], CR, XR CHEST 1V, 12/28/2024, 14:12. FINDINGS: Surgical changes and devices: Sternotomy wires and mediastinal clips are present. Lungs and pleura: Lungs are clear. No pleural effusions or pneumothorax. Mediastinum: Mediastinal contours appear normal. Heart size is normal. Bones and chest wall: No suspicious bony lesions. Overlying soft tissues appear unremarkable. IMPRESSION: No acute cardiopulmonary abnormality is seen. There is no significant discrepancy when compared to the overnight preliminary report. Approved by: Phillip Caballero M.D. on 02/04/2025 at 7:43
--- NOTE | 2025-02-04 05:14 | ED.NAVMDI ---
HPI - Nausea/Vomiting/Diarrhea <Renny Banks MD - Last Filed: 02/04/25 08:06> General Chief complaint: Nausea/Vomiting/Diarrhea Stated complaint: SOB, Abdominal Pain Time Seen by Provider: 02/04/25 05:09 Source: patient Mode of arrival: Ambulatory History of Present Illness HPI Narrative: 69-year-old male reports history of diabetes and cyclic vomiting from cannabis, states that he was partying 3 days ago using cannabis, then yesterday started having vomiting nonbloody multiple episodes, no loose stools. Some abdominal cramping. Also some sensation of shortness of breath. No chest pain or cough recalled. Related Data Home Medications ?Medication ?Instructions ?Recorded ?Confirmed cyclobenzaprine 10 mg tablet 10 mg PO 3XD 12/28/24 12/28/24 empagliflozin 25 mg tablet 25 mg PO DAILY 12/28/24 12/28/24 (Jardiance) gabapentin 300 mg capsule 300 mg PO DAILY 12/28/24 12/28/24 insulin glargine 100 unit/mL (3 35 unit SUBCUT DAILY 12/28/24 12/28/24 mL) subcutaneous pen (Lantus Solostar U-100 Insulin) losartan 25 mg tablet 25 mg PO DAILY 12/28/24 12/28/24 metformin 1,000 mg tablet 1,000 mg PO DAILY 12/28/24 12/28/24 tirzepatide 7.5 mg/0.5 mL 7.5 mg SUBCUT WEEKLY 12/28/24 12/28/24 subcutaneous pen injector (Mounjaro) Previous Rx's ?Medication ?Instructions ?Recorded doxycycline hyclate 100 mg tablet 100 mg PO BID #20 tabs 12/23/24 hydrocodone 5 mg-acetaminophen 325 1 tab PO Q6H PRN pain #5 tabs 12/23/24 mg tablet Allergies Allergy/AdvReac Type Severity Reaction Status Date / Time No Known Drug Allergies Allergy Verified 02/04/25 05:01 Patient History <Renny Banks MD - Last Filed: 02/04/25 08:06> Medical History Hyperlipidemia Hypertension Diabetes Coronary artery disease Cannabinoid hyperemesis syndrome Surgical History History of coronary artery bypass graft Status post cholecystectomy Family History (Updated 12/28/24 @ 20:05 by Ayana Bang MD) Mother Congestive heart failure Brother Diabetes mellitus Father Diabetes mellitus Coronary artery disease Social History (Updated 12/28/24 @ 20:05 by Ayana Bang MD) household members: spouse Smoking Status: Never smoker alcohol intake: never substance use type: marijuana Smoking Status: Never smoker alcohol intake frequency: 0-2 drinks per day Exam <Renny Banks MD - Last Filed: 02/04/25 08:06> Narrative Exam Narrative: GENERAL: Well-developed patient, in mild distress. HEAD: Atraumatic. Normocephalic. EYES: Pupils equal round and reactive. Extraocular motions intact. No scleral icterus. No injection or drainage. ENT: Nose without bleeding, purulent drainage. Throat without erythema, tonsillar hypertrophy or exudate. Airway patent. NECK: Trachea midline. Non tender CARDIOVASCULAR: Regular rate and rhythm without murmurs, gallops, or rubs. RESPIRATORY: Clear to auscultation. Breath sounds equal bilaterally. No wheezes, rales, or rhonchi. GASTROINTESTINAL: Abdomen soft, non-tender, nondistended. EXTREMITIES: No edema or joint tenderness. BACK: Nontender without deformity or crepitance. No flank tenderness. NEURO: AOx3. Motor functions grossly nonfocal SKIN: No rash or erythema of visible areas Initial Vital Signs Initial Vital Signs: Vital Signs Temperature 97.0 F L 02/04/25 05:00 Pulse Rate 83 02/04/25 05:00 Respiratory Rate 16 02/04/25 05:00 Blood Pressure 184/99 H 02/04/25 05:00 Pulse Oximetry 100 02/04/25 05:00 Oxygen Delivery Method Room Air 02/04/25 05:00 <Ryan Olsen DO - Last Filed: 02/04/25 07:57> Initial Vital Signs Initial Vital Signs: Vital Signs Temperature 97.0 F L 02/04/25 05:00 Pulse Rate 83 02/04/25 05:00 Respiratory Rate 16 02/04/25 05:00 Blood Pressure 184/99 H 02/04/25 05:00 Pulse Oximetry 100 02/04/25 05:00 Oxygen Delivery Method Room Air 02/04/25 05:00 Course <Renny Banks MD - Last Filed: 02/04/25 08:06> Orders Ordered: ED Orders 02/04/25 05:05 Comprehensive Metabolic Panel Stat Ethanol (ETOH) Stat Lipase Stat Magnesium Stat 02/04/25 05:10 XR chest 1V Stat 02/04/25 05:36 Complete Blood Count AUTO DIFF Stat Covid-19 + FLU A/B + RSV - PCR Stat 02/04/25 05:53 EKG-12 Lead Stat 02/04/25 06:26 Urine Drug Screen, Rapid Stat Urine Microscopic Stat Discontinued Medications Sodium Chloride (Normal Saline 0.9%) 1,000 mls @ 1,000 mls/hr IV BOLUS ONE Stop: 02/04/25 06:13 Last Infusion: 02/04/25 06:25 Dose: Infused Documented By: Admin: 02/04/25 05:19 Dose: 1,000 mls/hr Documented By: CATIA Ondansetron HCl (Ondansetron 4 Mg/2 Ml Inj) 4 mg IV NOW ONE Stop: 02/04/25 05:17 Last Admin: 02/04/25 05:19 Dose: 4 mg Documented By: CATIA Ondansetron HCl (Ondansetron 4 Mg Odt Prepack) 1 bottle MISC DIRECTED ONE Stop: 02/04/25 05:53 Last Admin: 02/04/25 08:00 Dose: Not Given Documented By: ZAHRA Vital Signs Vital signs: Vital Signs - 8 hr 02/04/25 05:00 02/04/25 05:02 02/04/25 05:02 Temperature 97.0 F L Pulse Rate 83 78 Respiratory Rate 16 Blood Pressure 184/99 H 168/77 H Pulse Oximetry 100 100 Oxygen Delivery Method Room Air Room Air 02/04/25 05:30 02/04/25 05:30 02/04/25 06:00 Temperature Pulse Rate 75 79 Respiratory Rate 23 27 H Blood Pressure 184/95 H Pulse Oximetry 99 100 Oxygen Delivery Method Room Air Room Air 02/04/25 06:00 Temperature Pulse Rate Respiratory Rate Blood Pressure 189/108 H Pulse Oximetry Oxygen Delivery Method <Ryan Olsen DO - Last Filed: 02/04/25 07:57> Orders Ordered: ED Orders 02/04/25 05:05 Comprehensive Metabolic Panel Stat Ethanol (ETOH) Stat Lipase Stat Magnesium Stat 02/04/25 05:10 XR chest 1V Stat 02/04/25 05:36 Complete Blood Count AUTO DIFF Stat Covid-19 + FLU A/B + RSV - PCR Stat 02/04/25 05:53 EKG-12 Lead Stat 02/04/25 06:26 Urine Drug Screen, Rapid Stat Urine Microscopic Stat Discontinued Medications Sodium Chloride (Normal Saline 0.9%) 1,000 mls @ 1,000 mls/hr IV BOLUS ONE Stop: 02/04/25 06:13 Last Infusion: 02/04/25 06:25 Dose: Infused Documented By: Admin: 02/04/25 05:19 Dose: 1,000 mls/hr Documented By: CATIA Ondansetron HCl (Ondansetron 4 Mg/2 Ml Inj) 4 mg IV NOW ONE Stop: 02/04/25 05:17 Last Admin: 02/04/25 05:19 Dose: 4 mg Documented By: CATIA Ondansetron HCl (Ondansetron 4 Mg Odt Prepack) 1 bottle MISC DIRECTED ONE Stop: 02/04/25 05:53 Last Admin: 02/04/25 08:00 Dose: Not Given Documented By: ZAHRA Vital Signs Vital signs: Vital Signs - 8 hr 02/04/25 05:00 02/04/25 05:02 02/04/25 05:02 Temperature 97.0 F L Pulse Rate 83 78 Respiratory Rate 16 Blood Pressure 184/99 H 168/77 H Pulse Oximetry 100 100 Oxygen Delivery Method Room Air Room Air 02/04/25 05:30 02/04/25 05:30 02/04/25 06:00 Temperature Pulse Rate 75 79 Respiratory Rate 23 27 H Blood Pressure 184/95 H Pulse Oximetry 99 100 Oxygen Delivery Method Room Air Room Air 02/04/25 06:00 Temperature Pulse Rate Respiratory Rate Blood Pressure 189/108 H Pulse Oximetry Oxygen Delivery Method MDM - Nausea/Vomiting/Diarrhea <Renny Banks MD - Last Filed: 02/04/25 08:06> Lab Data Attestation: I reviewed the patient's lab results. Lab results narrative: White blood cell count 7300, hemoglobin 15.4, platelets adequate. Glucose 230. BUN 20 with creatinine 0.81 normal renal function. Serum CO2 25 not decreased. Sodium 129, potassium 4.1. Liver functions and lipase normal. Urine dip negative. COVID/influenza/RSV swab negative. 02/04/25 05:36 06/04/25 05:05 Labs: Lab Results 02/04/25 02/04/25 02/04/25 Range/Units 05:05 05:36 06:26 WBC 7.3 (4.5-11.0) X10^3/uL RBC 5.86 (4.5-5.9) X10^6/uL Hgb 15.4 (13.5-17.5) g/dL Hct 46.8 (41-53) % MCV 79.8 L (80-100) fL MCH 26.3 (26-34) PG MCHC 33.0 (30-36) % RDW 14.7 (11.6-14.8) % Plt Count 157 (150-400) X10^3/uL Neut % (Auto) 56.6 (50-75) % Lymph % (Auto) 27.1 (25-40) % [place] % (Auto) 15.1 H (3-14) % Eos % (Auto) 0.6 L (2-4) % Baso % (Auto) 0.6 (0-2) % Neut # (Auto) 4100 (1414-0368) /uL Lymph # (Auto) 2000 (5075-4305) /uL [place] # (Auto) 1100 H (0-900) /uL Eos # (Auto) 0 (0-450) /uL Baso # (Auto) 0 (0-100) /uL Sodium 129 L (137-145) mmol/L Potassium 4.1 (3.4-5.1) mmol/L Chloride 92 L (98-107) mmol/L Carbon Dioxide 25 (22-32) mmol/L BUN 20 (9-20) mg/dL Creatinine 0.81 (0.66-1.25) mg/dL Estimated GFR > 60 (>60) mL/min BUN/Creatinine Ratio 24.7 H (6-22) Glucose 230 H (70-99) mg/dL Calcium 10.1 (8.4-10.2) mg/dL Magnesium 1.9 (1.6-2.3) mg/dL Total Bilirubin 1.5 H (0.2-1.3) mg/dL AST 28 (17-59) IU/L ALT 20 (<50) IU/L Alkaline Phosphatase 53 (38-126) U/L Total Protein 7.7 (6.3-8.2) g/dL Albumin 4.6 (3.5-5.0) g/dL Globulin 3.1 (1.7-4.1) g/dL Albumin/Globulin Ratio 1.5 (1.0-2.8) Lipase 33 (23-300) U/L Urine RBC None seen (0-5/HPF) Urine WBC None seen (0-5/HPF) Ur Squamous Epith Cells None seen (0-5/HPF) Urine Bacteria None seen (None) Ur Culture Indicated? Cult not indicated Vol Urine Centrifuged 10ml (spun) U Opiates 300ng/mL cut Negative (Negative) Ur Oxycodone Screen Negative (Negative) Urine Methadone Screen Negative (Negative) Ur Barbiturates Screen Negative (Negative) U Tricyclic Antidepress Negative (Negative) Ur Phencyclidine Scrn Negative (Negative) Ur Amphetamines Screen Negative (Negative) U Methamphetamines Scrn Negative (Negative) Ur MDMA Scrn (Ecstasy) Negative (Negative) U Benzodiazepines Scrn Negative (Negative) Urine Cocaine Screen Negative (Negative) U Marijuana (THC) Screen Positive H (Negative) Urine pH Normal (Normal) Urine Specific [place] Normal (Normal) Ethyl Alcohol < 10 (<10) mg/dL Ur Creatinine Normal (Normal) SARS-CoV-2 (PCR) Negative (Negative) Influenza A (RT-PCR) Flu a negative (NEGATIVE) Influenza B (RT-PCR) Flu b negative (NEGATIVE) RSV (PCR) Negative (Negative) Urine Dip Bedside Urine Glucose 500 mg/dl Bedside Urine Bilirubin - Negative Bedside Urine Ketone + 15 Urine Specific [place] 1.010 Bedside Urine Occult Blood - Negative Bedside Urine pH 6.5 Bedside Urine Protein - Negative Bedside Urine Urobilinogen - Negative Bedside Urine Nitrite - Negative Bedside Urine Leukocytes - Negative Esterase ECG Data Attestation: I personally reviewed and interpreted this ECG as follows: Interpretation: Normal sinus rhythm with rate 81, frequent multifocal PVCs. No obvious ST segment elevation or depression changes. VT 192, QRS 110, QTC 469. [facility] Narrative Medical decision making narrative: 69-year-old male with history of diabetes, admits to cannabis bingeing 3 days ago, believes he has vomiting associated with cannabis use, nonbloody, afebrile, normotensive. He believes he might be dehydrated. IV fluid bolus. IV ondansetron. EKG and labs pending. EKG shows no acute ischemic changes. Multifocal PVCs noted. Chest x-ray no acute changes. See tele radiology report. [phone], signed to Dr Olsen. 699: Patient was signed out to me by Dr. Banks, urinalysis consistent with THC use, patient was able to stand bear weight ambulate here unassisted here in the emergency department, was able to pass p.o. challenge, patient was given strict return precautions verbalized understanding of this and agrees to being discharged home with outpatient follow up <Ryan Olsen, DO - Last Filed: 02/04/25 07:57> Lab Data Labs: Lab Results 02/04/25 02/04/25 02/04/25 Range/Units 05:05 05:36 06:26 WBC 7.3 (4.5-11.0) X10^3/uL RBC 5.86 (4.5-5.9) X10^6/uL Hgb 15.4 (13.5-17.5) g/dL Hct 46.8 (41-53) % MCV 79.8 L (80-100) fL MCH 26.3 (26-34) PG MCHC 33.0 (30-36) % RDW 14.7 (11.6-14.8) % Plt Count 157 (150-400) X10^3/uL Neut % (Auto) 56.6 (50-75) % Lymph % (Auto) 27.1 (25-40) % [place] % (Auto) 15.1 H (3-14) % Eos % (Auto) 0.6 L (2-4) % Baso % (Auto) 0.6 (0-2) % Neut # (Auto) 4100 (1170-3818) /uL Lymph # (Auto) 2000 (5225-2459) /uL [place] # (Auto) 1100 H (0-900) /uL Eos # (Auto) 0 (0-450) /uL Baso # (Auto) 0 (0-100) /uL Sodium 129 L (137-145) mmol/L Potassium 4.1 (3.4-5.1) mmol/L Chloride 92 L (98-107) mmol/L Carbon Dioxide 25 (22-32) mmol/L BUN 20 (9-20) mg/dL Creatinine 0.81 (0.66-1.25) mg/dL Estimated GFR > 60 (>60) mL/min BUN/Creatinine Ratio 24.7 H (6-22) Glucose 230 H (70-99) mg/dL Calcium 10.1 (8.4-10.2) mg/dL Magnesium 1.9 (1.6-2.3) mg/dL Total Bilirubin 1.5 H (0.2-1.3) mg/dL AST 28 (17-59) IU/L ALT 20 (<50) IU/L Alkaline Phosphatase 53 (38-126) U/L Total Protein 7.7 (6.3-8.2) g/dL Albumin 4.6 (3.5-5.0) g/dL Globulin 3.1 (1.7-4.1) g/dL Albumin/Globulin Ratio 1.5 (1.0-2.8) Lipase 33 (23-300) U/L Urine RBC None seen (0-5/HPF) Urine WBC None seen (0-5/HPF) Ur Squamous Epith Cells None seen (0-5/HPF) Urine Bacteria None seen (None) Ur Culture Indicated? Cult not indicated Vol Urine Centrifuged 10ml (spun) U Opiates 300ng/mL cut Negative (Negative) Ur Oxycodone Screen Negative (Negative) Urine Methadone Screen Negative (Negative) Ur Barbiturates Screen Negative (Negative) U Tricyclic Antidepress Negative (Negative) Ur Phencyclidine Scrn Negative (Negative) Ur Amphetamines Screen Negative (Negative) U Methamphetamines Scrn Negative (Negative) Ur MDMA Scrn (Ecstasy) Negative (Negative) U Benzodiazepines Scrn Negative (Negative) Urine Cocaine Screen Negative (Negative) U Marijuana (THC) Screen Positive H (Negative) Urine pH Normal (Normal) Urine Specific [place] Normal (Normal) Ethyl Alcohol < 10 (<10) mg/dL Ur Creatinine Normal (Normal) SARS-CoV-2 (PCR) Negative (Negative) Influenza A (RT-PCR) Flu a negative (NEGATIVE) Influenza B (RT-PCR) Flu b negative (NEGATIVE) RSV (PCR) Negative (Negative) Urine Dip Bedside Urine Glucose 500 mg/dl Bedside Urine Bilirubin - Negative Bedside Urine Ketone + 15 Urine Specific [place] 1.010 Bedside Urine Occult Blood - Negative Bedside Urine pH 6.5 Bedside Urine Protein - Negative Bedside Urine Urobilinogen - Negative Bedside Urine Nitrite - Negative Bedside Urine Leukocytes - Negative Esterase MDM Narrative Medical decision making narrative: 69-year-old male with history of diabetes, admits to cannabis bingeing 3 days ago, believes he has vomiting associated with cannabis use, nonbloody, afebrile, normotensive. He believes he might be dehydrated. IV fluid bolus. IV ondansetron. EKG and labs pending. EKG shows no acute ischemic changes. Multifocal PVCs noted. Chest x-ray no acute changes. See tele radiology report. 0700: Patient was signed out to me by Dr. Banks, urinalysis consistent with THC use, patient was able to stand bear weight ambulate here unassisted here in the emergency department, was able to pass p.o. challenge, patient was given strict return precautions verbalized understanding of this and agrees to being discharged home with outpatient follow up Discharge Plan Departure Patient Disposition: Home Clinical Impression: Drug-induced nausea and vomiting, Cannabis abuse Activity Restrictions/Additional Instructions: Please follow up with the primary care doctor Please read the discharge instructions sheet carefully and bring all papers to all doctor follow-up visits, as it may contain information that your doctor may want to see. Disease processes change and evolve, if your symptoms worsen or if you develop any new symptoms that are concerning to you please return for evaluation. Your evaluation today does not show any evidence of any life-threatening/serious illnesses requiring admission to the hospital or surgery. Please follow-up with your doctor for re-evaluation in approximately 1 day. Seek immediate medical attention for any worrisome symptoms. *If you do not have a primary care provider please contact the [facility] Resource line at [phone]. They will ask some questions about your medical history and help get you set up with a doctor in the community. Prescriptions: No Action doxycycline hyclate 100 mg tablet 100 mg PO BID Qty: 20 0RF hydrocodone-acetaminophen 5-325 mg tablet 1 tab PO Q6H PRN (Reason: pain) Qty: 5 0RF insulin glargine [Lantus Solostar U-100 Insulin] 100 unit/mL (3 mL) insulin pen 35 unit SUBCUT DAILY Patient Comments: [NO ORIGINAL SIG] Rx Instructions: taken in the morning cyclobenzaprine 10 mg tablet 10 mg PO 3XD metformin 1,000 mg tablet 1,000 mg PO DAILY losartan 25 mg tablet 25 mg PO DAILY gabapentin 300 mg capsule 300 mg PO DAILY Jardiance 25 mg tablet 25 mg PO DAILY Mounjaro 7.5 mg/0.5 mL pen injector 7.5 mg SUBCUT WEEKLY Patient Comments: [NO ORIGINAL SIG] Referrals: Froilan Reyes DO [Primary Care Provider, Internal Medicine] Stand Alone Forms: Patient Portal/API
[2025-02-04] MEDS: SODIUM CHLORIDE 0.9% 1,000 ML 1000 ML IV (05:19)
[2025-02-04] MEDS: ONDANSETRON 4 MG/2 ML INJ IV (05:19)
[2025-02-04 05:30] VITALS: BP 184/95; PULSE 75; RESP 23; O2SAT 99
[2025-02-04 05:35] LABS: Alanine Aminotransferase 20 IU/L (<50); Albumin 4.6 g/dL (3.5-5.0); Albumin Globulin Ratio 1.5 (1.0-2.8); Alkaline Phosphatase 53 U/L (38-126); Aspartate Aminotransferase 28 IU/L (17-59); BUN Creatinine Ratio 24.7 (6-22); Bilirubin Total 1.5 mg/dL (0.2-1.3); Blood Urea Nitrogen 20 mg/dL (9-20); Calcium 10.1 mg/dL (8.4-10.2); Carbon Dioxide 25 mmol/L (22-32); Chloride 92 mmol/L (98-107); Estimated Glomerular Filt Rate > 60 mL/min (>60); Globulin 3.1 g/dL (1.7-4.1); Glucose 230 mg/dL (70-99); HEMOLYSIS < 15 (0-50); Lipase 33 U/L (23-300); Potassium 4.1 mmol/L (3.4-5.1); Sodium 129 mmol/L (137-145); Total Protein 7.7 g/dL (6.3-8.2)
[2025-02-04 06:00] VITALS: BP 189/108; PULSE 79; RESP 27; O2SAT 100
--- NOTE | 2025-02-04 06:02 | EKG_ITS ---
[place] [id number] [place] [address] Test Date: 2025-02-04 Pat Name: Nakul Parekh Department: [facility] Room: Gender: Male Environmental Aid: KATY : 1955 Requested By: Order Number: [id number] Reading MD: Nicolas Shipman Measurements Intervals [place] Rate: 81 P: 43 MS: 168 QRS: -38 QRSD: 110 T: 103 QT: 410 QTc: 476 Interpretive Statements NORMAL SINUS RHYTHM with unifocal PVC Left axis deviation Minimal voltage criteria for LVH, may be normal variant ( Nguyễn product ) Anterior infarct , age undetermined ST & T wave abnormality, consider lateral ischemia Electronically Signed On 02-06-2025 16:29:17 PDT by Nicolas Shipman
--- NOTE | 2025-02-04 06:03 | EKG_ITS ---
[place] [id number] [place] [id number] Test Date: 2025-02-04 Pat Name: Nakul Parekh Department: [facility] Room: Gender: Male Sleep Technologist: KATY : 1955 Requested By: Order Number: [id number] Reading MD: Nicolas Shipman Measurements Intervals [place] Rate: 81 P: 70 NM: 192 QRS: -33 QRSD: 110 T: 97 QT: 404 QTc: 469 Interpretive Statements Sinus rhythm with frequent premature ventricular complexes Left axis deviation Minimal voltage criteria for LVH, may be normal variant ( Nguyễn product ) Anteroseptal infarct , age undetermined Electronically Signed On 02-06-2025 16:29:38 PDT by Nicolas Shipman
[2025-02-04 06:19] LABS: Influenza A - CEPHEID Flu A NEGATIVE (NEGATIVE); Influenza B - CEPHEID Flu B NEGATIVE (NEGATIVE); Respiratory Syncytial Virus Negative (Negative)
[2025-02-04 06:25] LABS: COVID-19 CEPHEID 4-PLEX PCR Negative (Negative)
[2025-02-04 06:27] LABS: Add Manual Diff / Slide Review NO; Basophils Absolute Auto 0 /uL (0-100); Basophils Percent Auto 0.6 % (0-2); Eosinophils Absolute Auto 0 /uL (0-450); Eosinophils Percent Auto 0.6 % (2-4); Hematocrit 46.8 % (41-53); Hemoglobin 15.4 g/dL (13.5-17.5); Lymphocytes Absolute Auto 2000 /uL (1100-4500); Lymphocytes Percent Auto 27.1 % (25-40); Mean Corpuscular Hemoglobin 26.3 PG (26-34); Mean Corpuscular Volume 79.8 fL (80-100); Monocytes Absolute Auto 1100 /uL (0-900); Monocytes Percent Auto 15.1 % (3-14); Neutrophils Absolute Auto 4100 /uL (1500-7000); Neutrophils Percent Auto 56.6 % (50-75); Platelet Count 157 X10^3/uL (150-400); Red Blood Cell Count 5.86 X10^6/uL (4.5-5.9); Red Cell Distribution Width 14.7 % (11.6-14.8); White Blood Cell Count 7.3 X10^3/uL (4.5-11.0)
[2025-02-04 06:33] LABS: Magnesium 1.9 mg/dL (1.6-2.3)
[2025-02-04 06:49] LABS: UR Morphine/Opiate cutoff 300 Negative (Negative); Ur Creatinine Normal (Normal); Ur Specific Gravity Normal (Normal); Urine Amphetamines Negative (Negative); Urine Barbiturates Negative (Negative); Urine Benzodiazepines Negative (Negative); Urine Cocaine Negative (Negative); Urine MDMA Negative (Negative); Urine Methadone Negative (Negative); Urine Methamphetamines Negative (Negative); Urine Oxycodone Negative (Negative); Urine Phencyclidine Negative (Negative); Urine Tetrahydrocannabinol Positive (Negative); Urine Tricyclic Antidepressant Negative (Negative); Urine pH Normal (Normal)
[2025-02-04 07:09] LABS: Ethanol (ETOH) < 10 mg/dL (<10)
[2025-02-04 07:46] LABS: Urine Volume 10mL (spun)
[2025-02-04 07:49] LABS: Bacteria Urine None Seen; Culture Indicated Urine Cult Not Indicated; RBC Urine None Seen (0-5/HPF); Squamous Epithelial Cell Urine None Seen (0-5/HPF); WBC Urine None Seen (0-5/HPF)
== END 2025-02-04 08:05 | disposition home or self-care (01) ==
PROVIDERS: Emergency Medicine; Emergency Provider Student in an Organized Health Care Education/Training Program; PCP Internal Medicine
DX: R11.2 Nausea with vomiting, unspecified (principal); F12.10 Cannabis abuse, uncomplicated; R06.02 Shortness of breath; R07.89 Other chest pain
CPT/HCPCS: 0241U; 36415; 71045; 80053; 80305; 80320; 81003; 81015; 83690; 83735; 85025; 93005; 96361; 96374; 99284; J2405

== ENCOUNTER 2025-04-10 05:07 | Emergency (ER) | payer MEDICARE, MEDICAID, SELFPAY ==
[2024-12-28 18:19] VITALS: BMI 31.9
[2025-04-10 05:17] VITALS: BP 182/89; PULSE 95; RESP 16; TEMP 36.4; O2SAT 100; BMI 32.3
--- NOTE | 2025-04-10 05:26 | ED.NAVMDI ---
HPI - Nausea/Vomiting/Diarrhea General Chief complaint: Nausea/Vomiting/Diarrhea Stated complaint: Dehydrated, needs fluids Time Seen by Provider: 04/10/25 05:25 Source: patient Mode of arrival: Ambulatory History of Present Illness HPI Narrative: 69-year-old male patient with a history of hypertension, diabetes and CAD who complains of needing a ?bag of fluid. ? He says he awoke at 2:30 a.m. with nausea and has not drank ?enough fluid. ? No vomiting or diarrhea. Minimal abdominal discomfort Related Data Home Medications ?Medication ?Instructions ?Recorded ?Confirmed cyclobenzaprine 10 mg tablet 10 mg PO 3XD 12/28/24 12/28/24 empagliflozin 25 mg tablet 25 mg PO DAILY 12/28/24 12/28/24 (Jardiance) gabapentin 300 mg capsule 300 mg PO DAILY 12/28/24 12/28/24 insulin glargine 100 unit/mL (3 35 unit SUBCUT DAILY 12/28/24 12/28/24 mL) subcutaneous pen (Lantus Solostar U-100 Insulin) losartan 25 mg tablet 25 mg PO DAILY 12/28/24 12/28/24 metformin 1,000 mg tablet 1,000 mg PO DAILY 12/28/24 12/28/24 tirzepatide 7.5 mg/0.5 mL 7.5 mg SUBCUT WEEKLY 12/28/24 12/28/24 subcutaneous pen injector (Geronimo) Previous Rx's ?Medication ?Instructions ?Recorded doxycycline hyclate 100 mg tablet 100 mg PO BID #20 tabs 12/23/24 hydrocodone 5 mg-acetaminophen 325 1 tab PO Q6H PRN pain #5 tabs 12/23/24 mg tablet Allergies Allergy/AdvReac Type Severity Reaction Status Date / Time No Known Drug Allergies Allergy Verified 02/04/25 05:01 Review of Systems Review of Systems ROS Unobtainable: All systems reviewed & are unremarkable except as noted in HPI and below Gastrointestinal Gastrointestinal: Reports as per HPI Patient History Medical History Hyperlipidemia Hypertension Diabetes Coronary artery disease Cannabinoid hyperemesis syndrome Surgical History History of coronary artery bypass graft Status post cholecystectomy Family History (Updated 12/28/24 @ 20:05 by Ayana Bang MD) Mother Congestive heart failure Brother Diabetes mellitus Father Diabetes mellitus Coronary artery disease Social History (Updated 12/28/24 @ 20:05 by Ayana Bang MD) household members: spouse alcohol intake: never substance use type: marijuana alcohol intake frequency: 0-2 drinks per day Exam Narrative Exam Narrative: General: Alert and conversant. No distress. Appears well nourished Craniofacial: No evidence of trauma. Nontender and no swelling. Eyes: PERRLA EOMI conjunctiva clear Lungs: Clear to auscultation with good air movement. No wheezing, rales or rhonchi. No respiratory distress Cardiac: Regular rate and rhythm with no appreciable murmur or gallop Abdomen: Soft, nontender with no distention or masses. Normal bowel sounds. No rebound or guarding Musculoskeletal: Exam of the extremities, axial spine and ribcage reveals no deformity, bony tenderness or swelling. Range of motion intact Neuro: Alert and oriented. Cranial nerves, motor, sensory and cerebellar all grossly intact. No focal deficit Skin: Warm and normal color. No rashes Psychological: Normal affect and interaction. No evidence of delusion or psychosis. Normal mood. Initial Vital Signs Initial Vital Signs: Vital Signs Temperature 97.5 F L 04/10/25 05:17 Pulse Rate 95 H 04/10/25 05:17 Respiratory Rate 16 04/10/25 05:17 Blood Pressure 182/89 H 04/10/25 05:17 Pulse Oximetry 100 04/10/25 05:17 Oxygen Delivery Method Room Air 04/10/25 05:17 Course Course Course Narrative: 06:25 Feeling better after IV fluids and ondansetron. He would like to go home and take a hot shower. Orders Ordered: ED Orders 04/10/25 05:[address] [facility] [place] Stat 04/10/25 05:22 Complete Blood Count AUTO DIFF Stat Comprehensive Metabolic Panel Stat Sodium Chloride (Normal Saline 0.9%) 1,000 mls @ 1,000 mls/hr IV BOLUS ONE Stop: 04/10/25 06:33 Last Infusion: 04/10/25 06:25 Dose: Infused Discontinued Medications Ondansetron HCl (Ondansetron 4 Mg/2 Ml Inj) 4 mg IV NOW ONE Stop: 04/10/25 05:35 Last Admin: 04/10/25 05:40 Dose: 4 mg Ondansetron HCl (Ondansetron 4 Mg/2 Ml Inj) 4 mg IV NOW ONE Stop: 04/10/25 05:48 Last Admin: 04/10/25 05:49 Dose: 4 mg Vital Signs Vital signs: Vital Signs - 8 hr 04/10/25 05:17 04/10/25 05:45 Temperature 97.5 F L Pulse Rate 95 H 88 Respiratory Rate 16 Blood Pressure 182/89 H Pulse Oximetry 100 100 Oxygen Delivery Method Room Air MDM - Nausea/Vomiting/Diarrhea Lab Data Attestation: I reviewed the patient's lab results. Lab results narrative: Essentially unremarkable. 04/10/25 05:22 04/10/25 05:22 Labs: Lab Results 04/10/25 Range/Units 05:22 WBC 7.7 (4.5-11.0) X10^3/uL RBC 6.30 H (4.5-5.9) X10^6/uL Hgb 16.9 (13.5-17.5) g/dL Hct 49.7 (41-53) % MCV 79.0 L (80-100) fL MCH 26.9 (26-34) PG MCHC 34.0 (30-36) % RDW 14.5 (11.6-14.8) % Plt Count 155 (150-400) X10^3/uL Neut % (Auto) 49.4 L (50-75) % Lymph % (Auto) 37.9 (25-40) % [place] % (Auto) 11.5 (3-14) % Eos % (Auto) 0.8 L (2-4) % Baso % (Auto) 0.4 (0-2) % Neut # (Auto) 3800 (7455-3203) /uL Lymph # (Auto) 2900 (2006-4117) /uL [place] # (Auto) 900 (0-900) /uL Eos # (Auto) 100 (0-450) /uL Baso # (Auto) 0 (0-100) /uL Sodium 136 L (137-145) mmol/L Potassium 4.0 (3.4-5.1) mmol/L Chloride 101 (98-107) mmol/L Carbon Dioxide 23 (22-32) mmol/L BUN 14 (9-20) mg/dL Creatinine 0.88 (0.66-1.25) mg/dL Estimated GFR > 60 (>60) mL/min BUN/Creatinine Ratio 15.9 (6-22) Glucose 160 H (70-99) mg/dL Calcium 9.7 (8.4-10.2) mg/dL Total Bilirubin 0.8 (0.2-1.3) mg/dL AST 27 (17-59) IU/L ALT 16 (<50) IU/L Alkaline Phosphatase 65 (38-126) U/L Total Protein 8.0 (6.3-8.2) g/dL Albumin 4.7 (3.5-5.0) g/dL Globulin 3.3 (1.7-4.1) g/dL Albumin/Globulin Ratio 1.4 (1.0-2.8) MDM Narrative Medical decision making narrative: Patient has cannabis hyperemesis and continues to use marijuana. Improved with hydration and ondansetron. Lab work reassuring. He feels better. He was instructed on the addressing this problem with his primary care physician. Continue with hydration and avoid cannabis. Return to the ER if worse. Discharge Plan Departure Patient Disposition: Home Clinical Impression: Cannabis hyperemesis syndrome concurrent with and due to cannabis abuse Instructions: DI for Cyclic Vomiting Syndrome-Adult Activity Restrictions/Additional Instructions: Hydration, rest and supportive care. Avoid cannabis. Follow up with your doctor for further management Prescriptions: No Action doxycycline hyclate 100 mg tablet 100 mg PO BID Qty: 20 0RF hydrocodone-acetaminophen 5-325 mg tablet 1 tab PO Q6H PRN (Reason: pain) Qty: 5 0RF insulin glargine [Lantus Solostar U-100 Insulin] 100 unit/mL (3 mL) insulin pen 35 unit SUBCUT DAILY Patient Comments: [NO ORIGINAL SIG] Rx Instructions: taken in the morning cyclobenzaprine 10 mg tablet 10 mg PO 3XD metformin 1,000 mg tablet 1,000 mg PO DAILY losartan 25 mg tablet 25 mg PO DAILY gabapentin 300 mg capsule 300 mg PO DAILY Jardiance 25 mg tablet 25 mg PO DAILY Mounjaro 7.5 mg/0.5 mL pen injector 7.5 mg SUBCUT WEEKLY Patient Comments: [NO ORIGINAL SIG] Referrals: Froilan Reyes DO [Primary Care Provider, Internal Medicine] Stand Alone Forms: Patient Portal/API
[2025-04-10] MEDS: SODIUM CHLORIDE 0.9% 1,000 ML 1000 ML IV (05:39)
[2025-04-10] MEDS: ONDANSETRON 4 MG/2 ML INJ IV ×2 (05:40→05:49)
[2025-04-10 05:45] VITALS: PULSE 88; O2SAT 100
[2025-04-10 05:54] LABS: Add Manual Diff / Slide Review NO; Hematocrit 49.7 % (41-53); Hemoglobin 16.9 g/dL (13.5-17.5); Lymphocytes Absolute Auto 2900 /uL (1100-4500); Mean Corpuscular HGB Conc 34.0 % (30-36); Mean Corpuscular Hemoglobin 26.9 PG (26-34); Mean Corpuscular Volume 79.0 fL (80-100); Platelet Count 155 X10^3/uL (150-400)
--- NOTE | 2025-04-10 06:00 | PC.NURSE ---
pt states he wants a hot shower, explained to pt that was not available in the ED pt states then he is ready to go so he can go home and take a hot shower
[2025-04-10 06:01] LABS: Alanine Aminotransferase 16 IU/L (<50); Albumin 4.7 g/dL (3.5-5.0); Albumin Globulin Ratio 1.4 (1.0-2.8); Alkaline Phosphatase 65 U/L (38-126); Blood Urea Nitrogen 14 mg/dL (9-20); Calcium 9.7 mg/dL (8.4-10.2); Carbon Dioxide 23 mmol/L (22-32); Chloride 101 mmol/L (98-107); Estimated Glomerular Filt Rate > 60 mL/min (>60); Globulin 3.3 g/dL (1.7-4.1); Glucose 160 mg/dL (70-99); HEMOLYSIS 16 (0-50); Potassium 4.0 mmol/L (3.4-5.1); Sodium 136 mmol/L (137-145); Total Protein 8.0 g/dL (6.3-8.2)
--- NOTE | 2025-04-10 06:15 | PC.NURSE ---
pt refusing to allow dc vs to be taken
--- NOTE | 2025-04-10 06:21 | PC.NURSE ---
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 requested hot shower, offered a cold towel, pt. stated he needed to leave because he needed a hot shower. RN notified, provider notified. call light is within reach of pt.
[2025-04-10 06:50] LABS: RBC Morphology Normal Morphology
== END 2025-04-10 06:28 | disposition home or self-care (01) ==
PROVIDERS: Emergency Provider Emergency Medicine; PCP Internal Medicine
DX: R11.2 Nausea with vomiting, unspecified (principal); F12.188 Cannabis abuse with other cannabis-induced disorder; R10.9 Unspecified abdominal pain
CPT/HCPCS: 36415; 80053; 85025; 96361; 96374; 99284; J2405

== ENCOUNTER 2025-05-26 18:46 | Emergency (ER) | payer MEDICARE, MEDICAID, SELFPAY ==
[2024-12-28 18:19] VITALS: BMI 31.9
[2025-05-26] VITALS (60 sets, daily range): BP systolic 100–214; BP diastolic 60–143; PULSE 73–98; RESP 10–40; TEMP 36.3; O2SAT 89–100; BMI 31.6
--- NOTE | 2025-05-26 18:48 | DI.RAD.S_ITS ---
PROCEDURE: XR CHEST 1V INDICATIONS: Chest Pain TECHNIQUE: One view of the chest was acquired. COMPARISON: [facility], CR, XR CHEST 1V, 02/04/2025, 5:09. [facility], CR, XR CHEST 1V, 12/28/2024, 14:12. FINDINGS: Surgical changes and devices: CABG. Lungs and pleura: Lungs are clear. No pleural effusions or pneumothorax. Mediastinum: Mediastinal contours appear normal. Heart size is normal. Bones and chest wall: No suspicious bony lesions. Overlying soft tissues appear unremarkable. IMPRESSION: No acute cardiopulmonary abnormality is seen. Dictated by: Juan Grider M.D. on 05/26/2025 at 19:40 Approved by: Juan Grider M.D. on 05/26/2025 at 19:40
--- NOTE | 2025-05-26 18:55 | EKG_ITS ---
[facility] [address] [place] [address] Test Date: 2025-05-26 Pat Name: Nakul Parekh Department: [facility] Room: Gender: Male [employer] Officer: ZITA : 1955 Requested By: Order Number: [id number] Reading MD: Molina Mckenzie MD Measurements Intervals [place] Rate: 93 P: 71 NH: 180 QRS: -34 QRSD: 98 T: 103 QT: 364 QTc: 452 Interpretive Statements Sinus rhythm with frequent premature ventricular complexes Left axis deviation Septal infarct , age undetermined Electronically Signed On 05-27-2025 8:12:12 PDT by Molina Mckenzie MD
--- NOTE | 2025-05-26 19:07 | ED.CHESTPAIN ---
HPI - Chest Pain General Chief Complaint: Chest Pain Stated Complaint: dizzy, chest discofort Time Seen by Provider: 05/26/25 18:57 History of Present Illness HPI narrative: 69-year-old male patient with a history of type 2 diabetes, hypertension, GERD and dyslipidemia who complains of throbbing central chest discomfort waxing and waning for 3 days now with mild shortness of breath but no fever, chills or cough. No nausea, vomiting or diarrhea. Related Data Home Medications ?Medication ?Instructions ?Recorded ?Confirmed cyclobenzaprine 10 mg tablet 10 mg PO 3XD 12/28/24 12/28/24 empagliflozin 25 mg tablet 25 mg PO DAILY 12/28/24 12/28/24 (Jardiance) gabapentin 300 mg capsule 300 mg PO DAILY 12/28/24 12/28/24 insulin glargine 100 unit/mL (3 35 unit SUBCUT DAILY 12/28/24 12/28/24 mL) subcutaneous pen (Lantus Solostar U-100 Insulin) losartan 25 mg tablet 25 mg PO DAILY 12/28/24 12/28/24 metformin 1,000 mg tablet 1,000 mg PO DAILY 12/28/24 12/28/24 tirzepatide 7.5 mg/0.5 mL 7.5 mg SUBCUT WEEKLY 12/28/24 12/28/24 subcutaneous pen injector (Geronimo) Previous Rx's ?Medication ?Instructions ?Recorded doxycycline hyclate 100 mg tablet 100 mg PO BID #20 tabs 12/23/24 hydrocodone 5 mg-acetaminophen 325 1 tab PO Q6H PRN pain #5 tabs 12/23/24 mg tablet Allergies Allergy/AdvReac Type Severity Reaction Status Date / Time No Known Drug Allergies Allergy Verified 05/26/25 19:20 Review of Systems Review of Systems ROS Unobtainable: All systems reviewed & are unremarkable except as noted in HPI and below Cardiovascular Cardiovascular: Reports as per HPI Respiratory Respiratory: Reports as per HPI Patient History Medical History Hyperlipidemia Hypertension Diabetes Coronary artery disease Cannabinoid hyperemesis syndrome Surgical History History of coronary artery bypass graft Status post cholecystectomy Family History (Updated 12/28/24 @ 20:05 by Ayana Bang MD) Mother Congestive heart failure Brother Diabetes mellitus Father Diabetes mellitus Coronary artery disease Social History (Updated 12/28/24 @ 20:05 by Ayana Bang MD) household members: spouse alcohol intake: never substance use type: marijuana alcohol intake frequency: 0-2 drinks per day Exam Narrative Exam Narrative: General: Alert and conversant. No distress. Appears well nourished and well hydrated. Obese. Craniofacial: No evidence of trauma. Nontender and no swelling. Eyes: PERRLA EOMI conjunctiva clear Neck: No tenderness or adenopathy. No meningismus. No JVD Lungs: Clear to auscultation with good air movement. No wheezing, rales or rhonchi. No respiratory distress Cardiac: Regular rate and rhythm with no appreciable murmur or gallop Abdomen: Soft, nontender with no distention or masses. Normal bowel sounds. No rebound or guarding Musculoskeletal: Exam of the extremities, axial spine and ribcage reveals no deformity, bony tenderness or swelling. Range of motion intact Neuro: Alert and oriented. Cranial nerves, motor, sensory and cerebellar all grossly intact. No focal deficit Skin: Warm and normal color. No rashes Psychological: Normal affect and interaction. No evidence of delusion or psychosis. Normal mood. Initial Vital Signs Initial Vital Signs: Vital Signs Temperature 97.3 F L 05/26/25 18:48 Pulse Rate 98 H 05/26/25 18:48 Respiratory Rate 20 05/26/25 18:48 Blood Pressure 127/86 05/26/25 18:48 Pulse Oximetry 99 05/26/25 18:48 Oxygen Delivery Method Room Air 05/26/25 18:48 Course Course Course Narrative: 19:55 Patient continues to have chest ache at 8/10 with no squeezing or weight on chest. Initial troponin negative. EKG shows no ischemia. BNP is elevated but chest x-ray does not show congestion. He is having frequent PVCs but no hypotension. He states that he has not been able to eat or drink much for 3 days and feels like he is probably dehydrated although not lightheaded. He has not vomited at home but has nausea. Plan will but GI cocktail, ondansetron, 500 mL of saline and morphine for chest pain. He has also received chewable aspirin. 22:00 Second troponin negative. CBC with mild elevated hemoglobin hematocrit but otherwise unremarkable. Patient feels better after hydration, GI cocktail and morphine. Orders Ordered: ED Orders 05/26/25 18:48 XR chest 1V Stat EKG-12 Lead Stat 05/26/25 19:05 Complete Blood Count AUTO DIFF Stat Comprehensive Metabolic Panel Stat Lipase Stat Magnesium Stat NT-proBNP (BNP-Adult 18+) Stat PTT Partial Thromboplastin Enrique Stat Prothrombin Time INR Stat Troponin & CK Cardiac Panel Stat 05/26/25 19:56 EKG-12 Lead Stat 05/26/25 21:05 Trop I [Troponin I] Stat Discontinued Medications Aspirin (Aspirin 81 Mg Chew Tab) 324 mg PO NOW ONE Stop: 05/26/25 18:49 Last Admin: 05/26/25 20:02 Dose: 324 mg Documented By: LILIYA Al Hydrox/Mg Hydrox/Simethicone 30 ml/ Lidocaine HCl 15 ml 0 ml PO NOW ONE Stop: 05/26/25 20:01 Last Admin: 05/26/25 20:06 Dose: 30 ml Documented By: LILIYA Sodium Chloride (Normal Saline 0.9%) 500 mls @ 1,000 mls/hr IV BOLUS ONE Stop: 05/26/25 20:29 Morphine Sulfate (Morphine 4 Mg/Ml Inj) 4 mg IV NOW ONE Stop: 05/26/25 20:06 Last Admin: 05/26/25 20:08 Dose: 4 mg Documented By: LILIYA Morphine Sulfate (Morphine 4 Mg/Ml Inj) 4 mg IV NOW ONE Stop: 05/26/25 21:02 Last Admin: 05/26/25 21:10 Dose: 4 mg Documented By: LILIYA Ondansetron HCl (Ondansetron 4 Mg/2 Ml Inj) 4 mg IV NOW ONE Stop: 05/26/25 20:01 Last Admin: 05/26/25 20:24 Dose: 4 mg Documented By: LILIYA Vital Signs Vital signs: Vital Signs - 8 hr 05/26/25 18:48 05/26/25 19:21 05/26/25 19:23 Temperature 97.3 F L Pulse Rate 98 H Respiratory Rate 20 Blood Pressure 127/86 175/85 H Pulse Oximetry 99 89 L Oxygen Delivery Method Room Air 05/26/25 19:23 05/26/25 19:30 05/26/25 19:30 Temperature Pulse Rate 86 84 Respiratory Rate 17 28 H Blood Pressure 171/103 H Pulse Oximetry 100 Oxygen Delivery Method 05/26/25 19:48 05/26/25 19:48 05/26/25 19:49 Temperature Pulse Rate 96 H Respiratory Rate 26 H Blood Pressure 165/92 H 165/92 H Pulse Oximetry 98 Oxygen Delivery Method 05/26/25 19:49 05/26/25 19:54 05/26/25 19:54 Temperature Pulse Rate 94 H 87 Respiratory Rate 34 H 14 Blood Pressure 196/88 H Pulse Oximetry 98 98 Oxygen Delivery Method 05/26/25 20:00 05/26/25 20:00 05/26/25 20:06 Temperature Pulse Rate 88 96 H Respiratory Rate 10 L 18 Blood Pressure 192/97 H Pulse Oximetry 99 99 Oxygen Delivery Method 05/26/25 20:06 05/26/25 20:10 05/26/25 20:10 Temperature Pulse Rate 87 Respiratory Rate 22 Blood Pressure 203/100 H 207/105 H Pulse Oximetry 99 Oxygen Delivery Method 05/26/25 20:15 05/26/25 20:15 05/26/25 20:21 Temperature Pulse Rate 88 Respiratory Rate 21 Blood Pressure 197/106 H 201/102 H Pulse Oximetry 98 Oxygen Delivery Method 05/26/25 20:21 05/26/25 20:25 05/26/25 20:25 Temperature Pulse Rate 83 85 Respiratory Rate 21 22 Blood Pressure 189/90 H Pulse Oximetry 99 99 Oxygen Delivery Method 05/26/25 20:30 05/26/25 20:31 05/26/25 20:31 Temperature Pulse Rate 75 82 Respiratory Rate 15 12 Blood Pressure 187/143 H Pulse Oximetry 98 89 L Oxygen Delivery Method 05/26/25 20:35 05/26/25 20:35 05/26/25 20:38 Temperature Pulse Rate 85 77 Respiratory Rate 27 H 24 Blood Pressure 195/89 H Pulse Oximetry 100 100 Oxygen Delivery Method 05/26/25 20:38 05/26/25 20:40 05/26/25 20:40 Temperature Pulse Rate 88 Respiratory Rate 17 Blood Pressure 205/91 H 183/90 H Pulse Oximetry 100 Oxygen Delivery Method 05/26/25 20:45 05/26/25 20:45 05/26/25 20:50 Temperature Pulse Rate 73 88 Respiratory Rate 20 23 Blood Pressure 203/97 H Pulse Oximetry 100 100 Oxygen Delivery Method 05/26/25 20:50 05/26/25 20:55 05/26/25 20:55 Temperature Pulse Rate 89 Respiratory Rate 18 Blood Pressure 191/96 H 180/95 H Pulse Oximetry 100 Oxygen Delivery Method 05/26/25 21:00 05/26/25 21:00 05/26/25 21:01 Temperature Pulse Rate 75 75 Respiratory Rate 19 24 Blood Pressure 214/100 H Pulse Oximetry 100 100 Oxygen Delivery Method 05/26/25 21:01 05/26/25 21:02 05/26/25 21:02 Temperature Pulse Rate 85 Respiratory Rate 19 Blood Pressure 197/95 H 200/89 H Pulse Oximetry 100 Oxygen Delivery Method 05/26/25 21:05 05/26/25 21:05 05/26/25 21:10 Temperature Pulse Rate 85 Respiratory Rate 27 H Blood Pressure 189/88 H 168/78 H Pulse Oximetry 100 Oxygen Delivery Method 05/26/25 21:10 05/26/25 21:15 05/26/25 21:15 Temperature Pulse Rate 94 H 98 H Respiratory Rate 30 H 31 H Blood Pressure 146/76 H Pulse Oximetry 100 100 Oxygen Delivery Method 05/26/25 21:20 05/26/25 21:20 05/26/25 21:25 Temperature Pulse Rate 94 H 92 H Respiratory Rate 23 16 Blood Pressure 162/70 H Pulse Oximetry 100 99 Oxygen Delivery Method 05/26/25 21:25 05/26/25 21:30 05/26/25 21:30 Temperature Pulse Rate 92 H Respiratory Rate 20 Blood Pressure 131/64 110/75 Pulse Oximetry 99 Oxygen Delivery Method 05/26/25 21:35 05/26/25 21:35 05/26/25 21:40 Temperature Pulse Rate 91 H Respiratory Rate 29 H Blood Pressure 113/67 117/70 Pulse Oximetry 99 Oxygen Delivery Method 05/26/25 21:40 05/26/25 21:45 05/26/25 21:45 Temperature Pulse Rate 85 90 Respiratory Rate 40 H 34 H Blood Pressure 152/60 H Pulse Oximetry 98 99 Oxygen Delivery Method 05/26/25 21:51 05/26/25 21:51 05/26/25 21:55 Temperature Pulse Rate 92 H 91 H Respiratory Rate 18 18 Blood Pressure 148/78 H Pulse Oximetry 100 100 Oxygen Delivery Method 05/26/25 21:55 05/26/25 22:00 05/26/25 22:01 Temperature Pulse Rate 95 H 93 H Respiratory Rate 15 20 Blood Pressure 132/83 Pulse Oximetry 99 100 Oxygen Delivery Method 05/26/25 22:01 05/26/25 22:06 05/26/25 22:06 Temperature Pulse Rate 96 H Respiratory Rate 13 Blood Pressure 118/64 134/75 Pulse Oximetry 99 Oxygen Delivery Method 05/26/25 22:10 05/26/25 22:10 05/26/25 22:15 Temperature Pulse Rate 91 H Respiratory Rate 17 Blood Pressure 143/79 H 132/77 Pulse Oximetry 100 Oxygen Delivery Method 05/26/25 22:15 05/26/25 22:20 05/26/25 22:20 Temperature Pulse Rate 88 88 Respiratory Rate 16 22 Blood Pressure 118/67 Pulse Oximetry 100 100 Oxygen Delivery Method 05/26/25 22:25 05/26/25 22:25 05/26/25 22:30 Temperature Pulse Rate 88 94 H Respiratory Rate 31 H 18 Blood Pressure 119/65 Pulse Oximetry 98 98 Oxygen Delivery Method 05/26/25 22:30 05/26/25 22:36 05/26/25 22:36 Temperature Pulse Rate 96 H Respiratory Rate 13 Blood Pressure 118/63 125/76 Pulse Oximetry 100 Oxygen Delivery Method 05/26/25 22:40 05/26/25 22:40 05/26/25 22:45 Temperature Pulse Rate 96 H 96 H Respiratory Rate 20 30 H Blood Pressure 144/83 H Pulse Oximetry 99 100 Oxygen Delivery Method 05/26/25 22:45 05/26/25 22:50 05/26/25 22:50 Temperature Pulse Rate 93 H Respiratory Rate 14 Blood Pressure 158/88 H 134/80 Pulse Oximetry 100 Oxygen Delivery Method 05/26/25 22:55 05/26/25 22:55 05/26/25 23:00 Temperature Pulse Rate 93 H 98 H Respiratory Rate 27 H 23 Blood Pressure 145/81 H Pulse Oximetry 100 100 Oxygen Delivery Method 05/26/25 23:00 05/26/25 23:05 05/26/25 23:05 Temperature Pulse Rate 88 Respiratory Rate 16 Blood Pressure 150/84 H 150/80 H Pulse Oximetry 100 Oxygen Delivery Method 05/26/25 23:10 05/26/25 23:10 05/26/25 23:16 Temperature Pulse Rate 87 88 Respiratory Rate 15 16 Blood Pressure 100/61 Pulse Oximetry 99 100 Oxygen Delivery Method 05/26/25 23:16 05/26/25 23:20 05/26/25 23:20 Temperature Pulse Rate 92 H Respiratory Rate 12 Blood Pressure 121/93 H 124/72 Pulse Oximetry 100 Oxygen Delivery Method 05/26/25 23:25 05/26/25 23:25 05/26/25 23:30 Temperature Pulse Rate 90 Respiratory Rate 17 Blood Pressure 132/73 145/77 H Pulse Oximetry 100 Oxygen Delivery Method 05/26/25 23:30 05/26/25 23:35 05/26/25 23:35 Temperature Pulse Rate 84 92 H Respiratory Rate 20 12 Blood Pressure 150/79 H Pulse Oximetry 100 100 Oxygen Delivery Method 05/26/25 23:40 05/26/25 23:40 05/26/25 23:45 Temperature Pulse Rate 91 H Respiratory Rate 18 Blood Pressure 143/71 H 143/78 H Pulse Oximetry 100 Oxygen Delivery Method 05/26/25 23:45 05/26/25 23:50 05/26/25 23:50 Temperature Pulse Rate 90 90 Respiratory Rate 12 15 Blood Pressure 138/77 Pulse Oximetry 100 100 Oxygen Delivery Method 05/26/25 23:55 05/26/25 23:55 05/27/25 00:00 Temperature Pulse Rate 90 94 H Respiratory Rate 18 21 Blood Pressure 157/72 H Pulse Oximetry 100 94 Oxygen Delivery Method 05/27/25 00:00 Temperature Pulse Rate Respiratory Rate Blood Pressure 156/87 H Pulse Oximetry Oxygen Delivery Method MDM - Chest Pain Lab Data Attestation: I reviewed the patient's lab results. Lab results narrative: Negative troponin x2. Hemoglobin hematocrit elevated with mild plethora. Sodium 130. 05/26/25 19:05 05/26/25 19:05 Labs: Lab Results 05/26/25 05/26/25 Range/Units 19:05 21:05 WBC 10.9 (4.5-11.0) X10^3/uL RBC 7.02 H (4.5-5.9) X10^6/uL Hgb 18.1 H (13.5-17.5) g/dL Hct 53.4 H (41-53) % MCV 76.1 L (80-100) fL MCH 25.8 L (26-34) PG MCHC 33.9 (30-36) % RDW 13.8 (11.6-14.8) % Plt Count 204 (150-400) X10^3/uL Neut % (Auto) 61.6 (50-75) % Lymph % (Auto) 25.2 (25-40) % [place] % (Auto) 12.4 (3-14) % Eos % (Auto) 0.3 L (2-4) % Baso % (Auto) 0.5 (0-2) % Neut # (Auto) 6700 (5669-2852) /uL Lymph # (Auto) 2700 (5318-8131) /uL [place] # (Auto) 1400 H (0-900) /uL Eos # (Auto) 0 (0-450) /uL Baso # (Auto) 100 (0-100) /uL RBC Morphology Normal morphology PT 13.1 H (9.4-12.5) SECONDS INR 1.2 (0.9-1.3) APTT 35 (25.1-36.5) SECONDS Sodium 130 L (137-145) mmol/L Potassium 4.4 (3.4-5.1) mmol/L Chloride 93 L (98-107) mmol/L Carbon Dioxide 21 L (22-32) mmol/L BUN 27 H (9-20) mg/dL Creatinine 0.84 (0.66-1.25) mg/dL Estimated GFR > 60 (>60) mL/min BUN/Creatinine Ratio 32.1 H (6-22) Glucose 134 H (70-99) mg/dL Calcium 10.3 H (8.4-10.2) mg/dL Magnesium 2.0 (1.6-2.3) mg/dL Total Bilirubin 1.7 H (0.2-1.3) mg/dL AST 38 (17-59) IU/L ALT 21 (<50) IU/L Alkaline Phosphatase 58 (38-126) U/L Total Creatine Kinase 63 (55-170) U/L Troponin I < 0.012 0.013 (0.01-0.034) ng/mL NT-Pro-B Natriuret Pep 1920 H (<125) pg/mL Total Protein 8.5 H (6.3-8.2) g/dL Albumin 5.0 (3.5-5.0) g/dL Globulin 3.5 (1.7-4.1) g/dL Albumin/Globulin Ratio 1.4 (1.0-2.8) Lipase 39 (23-300) U/L Imaging Data Chest x-ray: My Impression: No acute disease ECG Data Attestation: I personally reviewed and interpreted this ECG as follows: (Sinus rhythm with frequent PVCs. LAD. Septal Q-waves. Otherwise no ischemic changes and rate is 93) MDM Narrative Medical decision making narrative: Patient with atypical chest pain responding to GI cocktail and hydration along with morphine. EKG, chest x-ray and troponin x2 negative. This does not appear to be cardiac would probably esophageal spasm given his history of acid reflux. He feels much better now and will be discharged home with a plan to continue his acid kay and follow up with primary care tomorrow. He has an appointment for follow-up. He will return to the ER if worse. Discharge Plan Departure Patient Disposition: Home Clinical Impression: Esophageal spasm, Atypical chest pain, Dehydration Instructions: Dehydration, DI for Atypical Chest Pain Activity Restrictions/Additional Instructions: Assessment: Atypical chest pain which was probably esophageal spasm given the EKG findings, chest x-ray and negative troponins. Also response to GI cocktail and hydration. Possible mild dehydration which may be managed at home. Plan: Hydration and rest. Continue acid kay medication. Follow up with your doctor as scheduled tomorrow. Return to the ER if worse. Prescriptions: No Action doxycycline hyclate 100 mg tablet 100 mg PO BID Qty: 20 0RF hydrocodone-acetaminophen 5-325 mg tablet 1 tab PO Q6H PRN (Reason: pain) Qty: 5 0RF insulin glargine [Lantus Solostar U-100 Insulin] 100 unit/mL (3 mL) insulin pen 35 unit SUBCUT DAILY Patient Comments: [NO ORIGINAL SIG] Rx Instructions: taken in the morning cyclobenzaprine 10 mg tablet 10 mg PO 3XD metformin 1,000 mg tablet 1,000 mg PO DAILY losartan 25 mg tablet 25 mg PO DAILY gabapentin 300 mg capsule 300 mg PO DAILY Jardiance 25 mg tablet 25 mg PO DAILY Mounjaro 7.5 mg/0.5 mL pen injector 7.5 mg SUBCUT WEEKLY Patient Comments: [NO ORIGINAL SIG] Referrals: Froilan Reyes DO [Primary Care Provider, Internal Medicine] Stand Alone Forms: Patient Portal/API
[2025-05-26 19:15] LABS: Add Manual Diff / Slide Review NO; Hematocrit 53.4 % (41-53); Hemoglobin 18.1 g/dL (13.5-17.5); Lymphocytes Absolute Auto 2700 /uL (1100-4500); Mean Corpuscular HGB Conc 33.9 % (30-36); Mean Corpuscular Hemoglobin 25.8 PG (26-34); Mean Corpuscular Volume 76.1 fL (80-100); Platelet Count 204 X10^3/uL (150-400)
[2025-05-26 19:37] LABS: Alanine Aminotransferase 21 IU/L (<50); Albumin 5.0 g/dL (3.5-5.0); Albumin Globulin Ratio 1.4 (1.0-2.8); Alkaline Phosphatase 58 U/L (38-126); Blood Urea Nitrogen 27 mg/dL (9-20); Calcium 10.3 mg/dL (8.4-10.2); Carbon Dioxide 21 mmol/L (22-32); Chloride 93 mmol/L (98-107); Creatine Kinase 63 U/L (55-170); Estimated Glomerular Filt Rate > 60 mL/min (>60); Globulin 3.5 g/dL (1.7-4.1); Glucose 134 mg/dL (70-99); HEMOLYSIS < 15 (0-50); Lipase 39 U/L (23-300); Magnesium 2.0 mg/dL (1.6-2.3); Potassium 4.4 mmol/L (3.4-5.1); Sodium 130 mmol/L (137-145); Total Protein 8.5 g/dL (6.3-8.2)
[2025-05-26 19:43] LABS: INR 1.2 (0.9-1.3); PTT Partial Thromboplastin Tim 35 SECONDS (25.1-36.5); Prothrombin Time 13.1 SECONDS (9.4-12.5)
[2025-05-26 19:49] LABS: NT-proBNP (BNP-Adult 18+) 1920 pg/mL (<125); RBC Morphology Normal Morphology; Troponin I < 0.012 ng/mL (0.01-0.034)
--- NOTE | 2025-05-26 20:00 | EKG_ITS ---
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
[2025-05-26] MEDS: ASPIRIN 81 MG CHEW TAB 324 MG PO (20:02)
[2025-05-26] MEDS: MAG HYDROX/ALUMINUM/SIMETH SUS 30 ML, LIDOCAINE VISCOUS 2% 15 ML PO (20:06)
[2025-05-26] MEDS: MORPHINE 4 MG/ML INJ IV ×2 (20:08→21:10)
--- NOTE | 2025-05-26 20:15 | PC.NURSE ---
MARIXA HAVING CONSTANT CRUISHING CHEST PAIN AND FREQUENT PVC'S
[2025-05-26] MEDS: ONDANSETRON 4 MG/2 ML INJ IV (20:24)
--- NOTE | 2025-05-26 20:40 | PC.NURSE ---
patient reporting constant chest pain as well and frequent waves on largely increased crushing chest pain and nausea in center of chest
[2025-05-26 22:02] LABS: Troponin I 0.013 ng/mL (0.01-0.034)
[2025-05-27] VITALS: BP 156/87; PULSE 94; RESP 21; O2SAT 94
== END 2025-05-27 00:24 | disposition home or self-care (01) ==
PROVIDERS: Emergency Provider Emergency Medicine; PCP Internal Medicine
DX: K22.4 Dyskinesia of esophagus (principal); R07.89 Other chest pain; E86.0 Dehydration; R06.02 Shortness of breath
CPT/HCPCS: 36415; 71045; 80053; 82550; 83690; 83735; 83880; 84484; 85025; 85610; 85730; 93005; 96374; 96375; 96376; 99284; J2270; J2405